=== PATIENT | male | born 1945 | race Caucasian/White ===

== ENCOUNTER → 2017-08-22 11:04 | Outpatient (CLI) | payer MEDICARE, SELFPAY ==
[2017-08-22 11:49] LABS: Hematocrit 41.3 % (40-54); Hemoglobin 12.9 g/dl (13.0-16.5); Mean Corp Hgb Conc 31.2 g/gl (32-36); Mean Corpuscular Hgb 26.4 pg (27.0-32.0); Mean Corpuscular Volume 84.5 fL (80-94); Mean Platelet Vol. 10.5 fl (6.2-12.0); Platelet Count 178 K/mm3 (150-450); RBC Distribution Width CV 16.5 % (11.6-14.6); RBC Distribution Width SD 50.8 fl (35.1-43.9); Red Blood Count 4.89 M/mm3 (4.6-6.2); White Blood Count 4.7 K/mm3 (4.4-11.0)
[2017-08-22 12:02] LABS: Ferritin 35 ng/mL (26-388); Iron 54 ug/dL (65-175); Thyroid Stim Hormone (TSH) 1.75 uIU/mL (0.358-3.74)
[2017-08-22 12:03] LABS: Scan Indicated on CBC? Y/N NO
== END ==
PROVIDERS: Family Provider Internal Medicine; PCP Internal Medicine; Visit Provider Psychiatry & Neurology Neurology
DX: G25.81 Restless legs syndrome (principal); D64.9 Anemia, unspecified; Z79.899 Other long term (current) drug therapy
CPT/HCPCS: 36415; 82728; 83540; 84443; 85027

== ENCOUNTER → 2017-10-01 08:27 | Outpatient (CLI) | payer MEDICARE, SELFPAY ==
--- NOTE | 2017-10-01 09:00 | PET_ITS ---
EXAMINATION: FDG PET CT INDICATIONS: A 72-year-old male with reported history of pulmonary nodularity. COMPARISON EXAMINATION: CT of the chest report dated 10/17/16, 04/19/17, previous FDG PET study dated 11/09/14. INDEX LESION SIZE SUV INTERPRETATION PERSISTENT: Left upper posterolateral hemithorax pulmonary parenchyma, left upper lobe 1.2 compared to 1.5, 11/09/14 Quantitative criteria for viable neoplasm are not fulfilled, no definitive interim quantitative metabolic change NON-INDEX LESION SIZE SUV INTERPRETATION NEW: Bilateral axillary regions 2.0 (max) Quantitative criteria for viable neoplasm are not fulfilled PERSISTENT: Mediastinum, bilateral thoracic perihilum 2.2 (max) compared to 2.4, 11/09/14 Quantitative criteria for viable neoplasm are not fulfilled, no definitive interim quantitative metabolic change TECHNIQUE: Following the intravenous administration of 13.47 mCi of F-18 deoxyglucose via the right hand, multiplanar image acquisitions of the neck, chest, abdomen and pelvis to level of mid thigh, obtained at one hour post radiopharmaceutical administration contemporaneously interpreted with the current CT of the neck, chest, abdomen and pelvis to level of mid thigh, dated 10/01/[address] of the chest report dated 10/17/16, 04/19/17, previous FDG PET study dated 11/09/14 reveal: SERUM GLUCOSE LEVEL: 84 mg/dl. HEIGHT: 66 inches. WEIGHT: 145 lbs. FINDINGS: 1. Mild enhanced glucose metabolism is redefined in the left upper posterolateral hemithorax pulmonary parenchyma, left upper lobe generating a current calculated maximum standard uptake value of 1.2 compared to 1.5 defined on the FDG PET study dated 11/09/14. The maximal axial diameter of the corresponding noncalcified parenchymal density on review of CT of the thorax dated 10/01/17 is 10.9 mm. 2. There is mild increased glucose concentration newly visualized in the bilateral axillary regions generating a calculated maximum standard uptake value of 2.0. Uptake corresponds to soft tissue densities on review of CT of the thorax dated 10/01/17, the majority of which express fatty hilus formation. 3. An increase in glucose metabolism is defined in the region of the aorticopulmonary window, subcarinal mediastinum and bilateral thoracic perihilar regions generating a current calculated maximum standard uptake value of 2.2 compared to 2.4 defined on the FDG PET study dated 11/09/14. 4. Normal physiologic distribution of the radiopharmaceutical is apparent in the hepatic (2.6/2.4) and splenic parenchyma, both renal units, bladder and visualized intestinal tract. There is uniform distribution of the radiopharmaceutical concentration compared on the cerebellar hemispheres and cerebral cortex. Diffuse intestinal tract activity is noted throughout all four quadrants of the abdominal-pelvic retroperitoneum, mesentery consistent with normal physiologic distribution of the radiopharmaceutical. Prominent glucose metabolism is defined in the descending thoracic aorta. Pertinent CT findings are as follows. CHEST: Atherosclerotic calcification is defined in the thoracic aorta without evidence of dilatation, aneurysm formation. Coronary arterial calcification is observed. Multiple axillary soft tissue densities with fatty hilus formation demonstrate mild increased glucose metabolism as previously described. Emphysematous change is noted in the bilateral upper-mid lung zones. Additional noncalcified parenchymal densities noted in the bilateral hemithorax demonstrate no evidence of quantitatively significant increased glucose metabolism. ABDOMEN AND PELVIS: There appears to be evidence of cholelithiasis. Exophytic and cortical cyst formations are defined in the bilateral kidneys. Calcified granuloma formation is noted within the splenic parenchyma. Atherosclerotic calcification is defined in the abdominal aorta without evidence of dilatation, aneurysm formation. Pelvic arterial calcification is observed. A fat-containing right inguinal hernia is noted. Right-left inguinal soft tissue densities are non-glucose avid. Minimal calcification is demonstrated within the prostate gland. SKELETAL: Degenerative changes defined in the cervical, thoracic and lumbar spine demonstrate no evidence for glucose hypermetabolism. PET/PET/CT Tumor Base -Thigh Init IMPRESSION: 1. NEGATIVE EXAMINATION. There is no definitive quantitative scintigraphic evidence of viable neoplasm. 2. Increased glucose concentration redefined in the left upper posterolateral hemithorax pulmonary parenchyma does not fulfill quantitative criteria for viable neoplasm. (Lilly et al, Annals of Internal Medicine, 138:724, 2003). 3. Metabolic and/or anatomic stability may be ensured in the left hemithorax pulmonary parenchymal abnormality with repeat FDG PET study and/or CT of the thorax in 6-9 months. (Xiu, Journal of Nuclear Medicine 45:88, P2004. Valerio, Seminars in Thoracic and Cardiovascular Surgery 14:292, 2002). 4. Facilitated glucose concentration redemonstrated in the mediastinum and bilateral thoracic perihilum does not fulfill quantitative criteria for viable neoplasm. (Brian et al, Journal of Clinical Oncology 16:2142, 1998). 5. The increase in glucose concentration observed in the left and right axilla corresponding to soft tissue with fatty hilus formation does not fulfill quantitative criteria for malignant transformation. 6. Prominent glucose concentration visualized in the oral cavity in proximity to dental hardware placement is consistent with a component of metallic reconstruction artifact. 7. Enhanced radiopharmaceutical concentration noted within the descending thoracic aorta is commensurate with activated leukocytes associated with atherosclerotic plaque formation. (Nela et al, Clinical Nuclear Medicine 29:93, 2003). 8. Overall, compared to the prior FDG PET study dated 11/09/14, there current absence of defined viable neoplastic disease. Electronic Signature Zacarias Wagner D.O. Electronically Signed: Zcaarias Wagner DO at 17:13 EDT Tel , Service support ,
== END ==
PROVIDERS: Family Provider Internal Medicine; PCP Internal Medicine; Visit Provider Internal Medicine Pulmonary Disease
DX: R91.1 Solitary pulmonary nodule (principal)
CPT/HCPCS: 78815; A9552; A4216

== ENCOUNTER → 2017-10-05 09:11 | Outpatient (CLI) | payer MEDICARE, SELFPAY ==
[2017-10-05 09:39] LABS: Absolute Lymphocyte Count 1.29 X10^3/ul (0.83-4.51); Absolute Neutrophil Count 2.7 X10^3/uL (2.0-7.7); Basophil# 0.05 X10^3/uL; Basophil% 1.1 % (0-1); Eosinophil# 0.18 X10^3/uL; Eosinophils% 3.9 % (0-5); Hematocrit 39.2 % (40-54); Hemoglobin 12.5 g/dl (13.0-16.5); Lymphocyte # 1.29 X10^3/ul (4.0); Lymphocyte % 27.8 % (19-41); Mean Corp Hgb Conc 31.9 g/gl (32-36); Mean Corpuscular Volume 84.7 fL (80-94); Mean Platelet Vol. 9.8 fl (6.2-12.0); Monocyte# 0.47 X10^3/uL; Monocyte% 10.1 % (0-10); Neutrophil # 2.65 X10^3/uL (2.7-7.7); Neutrophil % 57.1 % (47-70); Platelet Count 186 K/mm3 (150-450); RBC Distribution Width CV 16.8 % (11.6-14.6); RBC Distribution Width SD 51.8 fl (35.1-43.9); Red Blood Count 4.63 M/mm3 (4.6-6.2); White Blood Count 4.6 K/mm3 (4.4-11.0)
[2017-10-05 09:40] LABS: POSITIVE COUNT NO; POSITIVE DIFFERENTIAL NO; POSITIVE MORPHOLOGY NO
[2017-10-05 10:07] LABS: ALB/GLOB Ratio 0.8 RATIO (0.9-2.4); AST(SGOT) 23 U/L (15-37); Alanine Aminotransfer ALT/SGPT 29 U/L (16-61); Albumin, Serum 3.2 g/dL (3.2-5.0); Alkaline Phosphatase 95 U/L (45-117); Anion Gap 4 (5-15); BUN 16 mg/dL (7-18); BUN/Creat Ratio 27.4 RATIO (10-20); Calcium,Total 8.5 mg/dL (8.5-10.1); Chloride 107 mmol/L (98-107); Creatinine, Serum 0.58 mg/dL (0.70-1.30); EST Glomerular Filtration Rate 144 mL/min (>60); Est Glom Filt Rate - Afr Amer 175 mL/min (>60); Globulin 3.8 g/dL (2.2-4.2); Glucose 97 mg/dL (74-106); Sodium Level 140 mmol/L (136-145)
== END ==
PROVIDERS: Family Provider Internal Medicine; PCP Internal Medicine; Visit Provider Internal Medicine Rheumatology
DX: M05.79 Rheumatoid arthritis with rheumatoid factor of multiple sites without organ or systems involvement (principal); M17.0 Bilateral primary osteoarthritis of knee; E11.9 Type 2 diabetes mellitus without complications; J44.9 Chronic obstructive pulmonary disease, unspecified; E78.5 Hyperlipidemia, unspecified; I42.9 Cardiomyopathy, unspecified; G62.89 Other specified polyneuropathies; Z79.899 Other long term (current) drug therapy
CPT/HCPCS: 36415; 80053; 85025

== ENCOUNTER → 2017-10-08 12:24 | Outpatient (CLI) | payer MEDICARE, SELFPAY ==
[2017-10-08 14:21] LABS: Absolute Neutrophil Count 1.9 X10^3/uL (2.0-7.7); Basophil# 0.05 X10^3/uL; Basophil% 1.2 % (0-1); Eosinophil# 0.23 X10^3/uL; Eosinophils% 5.5 % (0-5); Hematocrit 40.3 % (40-54); Lymphocyte % 35.6 % (19-41); Mean Corp Hgb Conc 32.3 g/gl (32-36); Mean Corpuscular Hgb 27.4 pg (27.0-32.0); Mean Platelet Vol. 9.6 fl (6.2-12.0); Monocyte# 0.49 X10^3/uL; Monocyte% 11.6 % (0-10); Neutrophil # 1.94 X10^3/uL (2.7-7.7); Neutrophil % 46.1 % (47-70); Platelet Count 190 K/mm3 (150-450); RBC Distribution Width CV 16.9 % (11.6-14.6); RBC Distribution Width SD 51.6 fl (35.1-43.9); Red Blood Count 4.74 M/mm3 (4.6-6.2); White Blood Count 4.2 K/mm3 (4.4-11.0)
[2017-10-08 14:29] LABS: POSITIVE COUNT NO; POSITIVE DIFFERENTIAL NO; POSITIVE MORPHOLOGY NO
[2017-10-08 14:37] LABS: Vitamin B12 489 pg/mL (211-911)
[2017-10-08 14:50] LABS: ALB/GLOB Ratio 0.8 RATIO (0.9-2.4); AST(SGOT) 20 U/L (15-37); Alanine Aminotransfer ALT/SGPT 23 U/L (16-61); Alkaline Phosphatase 91 U/L (45-117); Anion Gap 6 (5-15); BUN 14 mg/dL (7-18); BUN/Creat Ratio 22.4 RATIO (10-20); Calcium,Total 8.4 mg/dL (8.5-10.1); Chloride 109 mmol/L (98-107); Cholesterol 138 mg/dL (200); Creatinine, Serum 0.63 mg/dL (0.70-1.30); EST Glomerular Filtration Rate 134 mL/min (>60); Est Glom Filt Rate - Afr Amer 162 mL/min (>60); Ferritin 36 ng/mL (26-388); Globulin 3.7 g/dL (2.2-4.2); Glucose 82 mg/dL (74-106); High Density Lipoprotein 42 mg/dL; Iron 135 ug/dL (65-175); PSA,Total - Annual Screen 0.67 ng/mL (0.00-4.00); Potassium 4.1 mmol/L (3.5-5.1); Protein, Total 6.7 g/dL (6.4-8.2); Sodium Level 142 mmol/L (136-145); Triglycerides 76 mg/dL; Very Low Density Lipoprotein 15 mg/dL (5-40)
[2017-10-09 16:11] LABS: PROEL- A/G Ratio 1.1 (0.7-1.7); PROEL- Albumin 3.2 g/dL (2.9-4.4); PROEL- Alpha-1 Globulin 0.2 g/dL (0.0-0.4); PROEL- Alpha-2 Globulin 0.8 g/dL (0.4-1.0); PROEL- Beta Globulin 0.8 g/dL (0.7-1.3); PROEL- Globulin, Total 2.9 g/dL (2.2-3.9); PROEL- TOTAL PROTEIN 6.1 g/dL (6.0-8.5)
[2017-10-11 14:07] LABS: PROELU- Albumin, Urine 37.8 % (.); PROELU- Alpha-1-Globulin,Ur 5.7 % (.); PROELU- Alpha-2-Globulin,Ur 18.9 % (.); PROELU- Beta Globulin, Ur 27.5 % (.)
== END ==
PROVIDERS: Family Provider Internal Medicine; PCP Internal Medicine; Visit Provider Internal Medicine
DX: E78.4 Other hyperlipidemia (principal); D64.9 Anemia, unspecified; R79.89 Other specified abnormal findings of blood chemistry; Z12.5 Encounter for screening for malignant neoplasm of prostate
CPT/HCPCS: 36415; 80053; 80061; 82607; 82728; 83540; 84153; 84165; 84166; 85025; 86141; G0103

== ENCOUNTER → 2017-10-12 11:41 | Outpatient (CLI) | payer MEDICARE, SELFPAY ==
[2017-10-15 20:08] LABS: QNTFERON TB Ag Minus Nil Value < 0 IU/mL (.); QNTFERON TB Ag Value 0.03 IU/mL (.); QNTFERON TB Mitogen Value > 10.00 IU/mL (.); QNTFERON TB Nil Value 0.05 IU/mL (.)
[2017-10-16 09:36] LABS: QNTIFERON TB Gold Negative (Negative)
== END ==
PROVIDERS: Family Provider Internal Medicine; PCP Internal Medicine; Visit Provider Internal Medicine Rheumatology
DX: M05.79 Rheumatoid arthritis with rheumatoid factor of multiple sites without organ or systems involvement (principal); M17.0 Bilateral primary osteoarthritis of knee; E11.9 Type 2 diabetes mellitus without complications; J44.9 Chronic obstructive pulmonary disease, unspecified; E78.5 Hyperlipidemia, unspecified; I42.9 Cardiomyopathy, unspecified; G62.89 Other specified polyneuropathies; Z79.899 Other long term (current) drug therapy
CPT/HCPCS: 36415; 86480

== ENCOUNTER → 2017-11-21 09:50 | Outpatient (CLI) | payer MEDICARE, SELFPAY ==
--- NOTE | 2017-11-21 09:56 | ECHOD_ITS ---
Reason For Study: CONGENITAL HEART DISEASE Procedure This was a 2D Doppler, Color Flow transthoracic echocardiogram. The exam was of fair technical quality due to diminished acoustic windows. The study was technically difficult. Exam performed in department. Left Ventricle Normal LV size. Left ventricular systolic function is normal. The estimated ejection fraction is 55 %. Normal diastology for age. No regional wall motion abnormalities noted. Right Ventricle Normal RV size. Normal systolic function. Atria Normal left atrium. Normal right atrium. No doppler evidence for ASD. Mitral Valve There is moderate mitral annular calcification. Extension of the mitral annular calcification onto the posterior mitral valve leaflet. Mild (1+) mitral valve insufficiency. Tricuspid Valve Normal tricuspid valve. Mild tricuspid valve insufficiency. Right ventricular systolic pressure estimated to be 28 mmHg. Aortic Valve Trisinus/trileaflet aortic valve. Mild diffuse aortic valve thickening. Mild focal aortic valve calcification. Mild (1+) aortic valve insufficiency. Pulmonic Valve The pulmonic valve is not well visualized. Trivial pulmonic valve insufficiency. Great Vessels Normal sized aortic root. Pericardium/Pleural No pericardial effusion. MMode/2D Measurements & Calculations LVIDd: 4.3 cm IVSd: 1.1 cm Ao root diam: 3.4 cm LVIDs: 3.1 cm LVPWd: 1.1 cm FS: 28.3 % LAV(MOD-sp2): 21.6 ml LVAd ap4: 27.0 cm2 SV(MOD-sp4): 39.9 ml EDV(MOD-sp4): 76.9 ml EDV(sp4-el): 81.1 ml LVAs ap4: 17.2 cm2 ESV(MOD-sp4): 37.1 ml ESV(sp4-el): 38.1 ml EF(MOD-sp4): 51.8 % EF(sp4-el): 53.0 % SV(sp4-el): 43.0 ml Time Measurements MV dec time: 0.22 sec Doppler Measurements & Calculations MV E max bright: 52.4 cm/sec Lat Peak E' Bright: 10.1 cm/sec Med Peak E' Bright: 8.7 cm/sec MV A max bright: 89.1 cm/sec E/E' lat: 5.2 E/E' med: 6.0 MV E/A: 0.59 Ao V2 max: 103.9 cm/sec LV V1 max: 76.8 cm/sec PA V2 max: 119.6 cm/sec Ao max P.3 mmHg LV V1 max P.4 mmHg TR max bright: 248.1 cm/sec TR max P.6 mmHg Interpretation Summary The study was technically difficult. Left ventricular systolic function is normal. The estimated ejection fraction is 55 %. There is moderate mitral annular calcification. Extension of the mitral annular calcification onto the posterior mitral valve leaflet. Mild (1+) mitral valve insufficiency. Mild tricuspid valve insufficiency. Mild diffuse aortic valve thickening. Mild focal aortic valve calcification. Trivial pulmonic valve insufficiency. Right ventricular systolic pressure estimated to be 28 mmHg. Ordering Physician: Cielo Cole Referring Physician: MANUEL SAMUEL Performed By: Jo Ann Patterson RDCS
== END ==
PROVIDERS: Family Provider Internal Medicine; PCP Internal Medicine; Visit Provider Physician Assistant Medical
DX: I34.0 Nonrheumatic mitral (valve) insufficiency (principal)
CPT/HCPCS: 93306

== ENCOUNTER → 2017-12-21 11:29 | Outpatient (CLI) | payer MEDICARE, SELFPAY ==
[2017-12-21 12:43] LABS: Absolute Lymphocyte Count 1.59 X10^3/ul (0.83-4.51); Absolute Neutrophil Count 2.1 X10^3/uL (2.0-7.7); Basophil# 0.02 X10^3/uL; Basophil% 0.5 % (0-1); Eosinophil# 0.13 X10^3/uL; Eosinophils% 3.2 % (0-5); Hematocrit 39.5 % (40-54); Hemoglobin 12.5 g/dl (13.0-16.5); Lymphocyte # 1.59 X10^3/ul (4.0); Lymphocyte % 38.7 % (19-41); Mean Corp Hgb Conc 31.6 g/gl (32-36); Mean Corpuscular Hgb 27.4 pg (27.0-32.0); Mean Corpuscular Volume 86.6 fL (80-94); Mean Platelet Vol. 9.3 fl (6.2-12.0); Monocyte# 0.28 X10^3/uL; Monocyte% 6.8 % (0-10); Neutrophil # 2.09 X10^3/uL (2.7-7.7); Neutrophil % 50.8 % (47-70); Platelet Count 173 K/mm3 (150-450); RBC Distribution Width CV 14.9 % (11.6-14.6); RBC Distribution Width SD 46.5 fl (35.1-43.9); Red Blood Count 4.56 M/mm3 (4.6-6.2); White Blood Count 4.1 K/mm3 (4.4-11.0)
[2017-12-21 12:45] LABS: POSITIVE COUNT NO; POSITIVE DIFFERENTIAL NO; POSITIVE MORPHOLOGY NO
[2017-12-21 13:04] LABS: ALB/GLOB Ratio 0.8 RATIO (0.9-2.4); AST(SGOT) 22 U/L (15-37); Alanine Aminotransfer ALT/SGPT 22 U/L (16-61); Albumin, Serum 3.1 g/dL (3.2-5.0); Alkaline Phosphatase 85 U/L (45-117); Anion Gap 7 (5-15); BUN 16 mg/dL (7-18); BUN/Creat Ratio 21.5 RATIO (10-20); Calcium,Total 8.5 mg/dL (8.5-10.1); Chloride 108 mmol/L (98-107); Creatinine, Serum 0.74 mg/dL (0.70-1.30); EST Glomerular Filtration Rate 109 mL/min (>60); Est Glom Filt Rate - Afr Amer 132 mL/min (>60); Globulin 3.9 g/dL (2.2-4.2); Glucose 78 mg/dL (74-106); Sodium Level 141 mmol/L (136-145)
== END ==
PROVIDERS: Family Provider Internal Medicine; PCP Internal Medicine; Visit Provider Internal Medicine Rheumatology
DX: M05.79 Rheumatoid arthritis with rheumatoid factor of multiple sites without organ or systems involvement (principal); Z79.899 Other long term (current) drug therapy; M17.0 Bilateral primary osteoarthritis of knee; E11.9 Type 2 diabetes mellitus without complications; J44.9 Chronic obstructive pulmonary disease, unspecified; E78.5 Hyperlipidemia, unspecified; I42.9 Cardiomyopathy, unspecified; G62.89 Other specified polyneuropathies
CPT/HCPCS: 36415; 80053; 85025

== ENCOUNTER → 2018-01-11 10:06 | Outpatient (CLI) | payer MEDICARE, SELFPAY ==
[2018-01-11 11:07] LABS: Absolute Lymphocyte Count 1.62 X10^3/ul (0.83-4.51); Absolute Neutrophil Count 2.8 X10^3/uL (2.0-7.7); Basophil# 0.05 X10^3/uL; Eosinophil# 0.21 X10^3/uL; Eosinophils% 4.1 % (0-5); Hemoglobin 13.7 g/dl (13.0-16.5); Lymphocyte # 1.62 X10^3/ul (4.0); Lymphocyte % 31.3 % (19-41); Mean Corp Hgb Conc 31.9 g/gl (32-36); Mean Corpuscular Volume 87.9 fL (80-94); Mean Platelet Vol. 10.5 fl (6.2-12.0); Monocyte# 0.53 X10^3/uL; Monocyte% 10.3 % (0-10); Neutrophil # 2.76 X10^3/uL (2.7-7.7); Neutrophil % 53.3 % (47-70); Platelet Count 179 K/mm3 (150-450); RBC Distribution Width CV 15.2 % (11.6-14.6); RBC Distribution Width SD 48.4 fl (35.1-43.9); Red Blood Count 4.89 M/mm3 (4.6-6.2); White Blood Count 5.2 K/mm3 (4.4-11.0)
[2018-01-11 11:10] LABS: POSITIVE COUNT NO; POSITIVE DIFFERENTIAL NO; POSITIVE MORPHOLOGY NO
[2018-01-11 11:47] LABS: ALB/GLOB Ratio 0.8 RATIO (0.9-2.4); AST(SGOT) 15 U/L (15-37); Alanine Aminotransfer ALT/SGPT 20 U/L (16-61); Albumin, Serum 3.2 g/dL (3.2-5.0); Alkaline Phosphatase 97 U/L (45-117); Anion Gap 6 (5-15); BUN 15 mg/dL (7-18); BUN/Creat Ratio 20.6 RATIO (10-20); Calcium,Total 8.6 mg/dL (8.5-10.1); Chloride 109 mmol/L (98-107); Cholesterol 144 mg/dL (200); Creatinine, Serum 0.73 mg/dL (0.70-1.30); EST Glomerular Filtration Rate 112 mL/min (>60); Est Glom Filt Rate - Afr Amer 136 mL/min (>60); Globulin 4.1 g/dL (2.2-4.2); Glucose 86 mg/dL (74-106); High Density Lipoprotein 48 mg/dL; Potassium 4.2 mmol/L (3.5-5.1); Protein, Total 7.3 g/dL (6.4-8.2); Sodium Level 142 mmol/L (136-145); Triglycerides 56 mg/dL; Very Low Density Lipoprotein 11 mg/dL (5-40)
[2018-01-11 11:49] LABS: Hemoglobin A1c 5.3 % (4.2-6.3)
[2018-01-11 11:51] LABS: Vitamin D,25 Hydroxy 27.4 ng/mL (29.95-100.01)
[2018-01-11 14:03] LABS: Microalbumin:Creatinine Ratio 8.1 mg/g CRE (<30 mg/g CRE)
== END ==
PROVIDERS: Family Provider Internal Medicine; PCP Internal Medicine; Visit Provider Internal Medicine
DX: E78.4 Other hyperlipidemia (principal); E11.9 Type 2 diabetes mellitus without complications; M85.80 Other specified disorders of bone density and structure, unspecified site
CPT/HCPCS: 80053; 80061; 82043; 82306; 82570; 83036; 85025

== ENCOUNTER → 2018-03-22 11:26 | Outpatient (CLI) | payer MEDICARE, SELFPAY ==
[2018-03-22 11:47] LABS: Absolute Lymphocyte Count 1.23 X10^3/ul (0.83-4.51); Absolute Neutrophil Count 2.9 X10^3/uL (2.0-7.7); Basophil# 0.03 X10^3/uL; Basophil% 0.6 % (0-1); Eosinophil# 0.08 X10^3/uL; Eosinophils% 1.7 % (0-5); Hematocrit 39.2 % (40-54); Hemoglobin 12.5 g/dl (13.0-16.5); Lymphocyte # 1.23 X10^3/ul (4.0); Lymphocyte % 26.4 % (19-41); Mean Corp Hgb Conc 31.9 g/gl (32-36); Mean Corpuscular Hgb 27.5 pg (27.0-32.0); Mean Corpuscular Volume 86.3 fL (80-94); Mean Platelet Vol. 9.5 fl (6.2-12.0); Monocyte# 0.45 X10^3/uL; Monocyte% 9.7 % (0-10); Neutrophil # 2.87 X10^3/uL (2.7-7.7); Neutrophil % 61.6 % (47-70); Platelet Count 145 K/mm3 (150-450); RBC Distribution Width CV 15.5 % (11.6-14.6); RBC Distribution Width SD 48.9 fl (35.1-43.9); Red Blood Count 4.54 M/mm3 (4.6-6.2); White Blood Count 4.7 K/mm3 (4.4-11.0)
[2018-03-22 11:48] LABS: POSITIVE COUNT NO; POSITIVE DIFFERENTIAL NO; POSITIVE MORPHOLOGY NO
[2018-03-22 12:33] LABS: ALB/GLOB Ratio 0.8 RATIO (0.9-2.4); AST(SGOT) 15 U/L (15-37); Alanine Aminotransfer ALT/SGPT 17 U/L (16-61); Albumin, Serum 3.1 g/dL (3.2-5.0); Alkaline Phosphatase 91 U/L (45-117); Anion Gap 6 (5-15); BUN 17 mg/dL (7-18); BUN/Creat Ratio 22.1 RATIO (10-20); Calcium,Total 8.4 mg/dL (8.5-10.1); Chloride 109 mmol/L (98-107); Creatinine, Serum 0.77 mg/dL (0.70-1.30); EST Glomerular Filtration Rate 105 mL/min (>60); Est Glom Filt Rate - Afr Amer 127 mL/min (>60); Globulin 3.9 g/dL (2.2-4.2); Glucose 84 mg/dL (74-106); Potassium 3.9 mmol/L (3.5-5.1); Sodium Level 141 mmol/L (136-145)
== END ==
PROVIDERS: Family Provider Internal Medicine; PCP Internal Medicine; Referring Provider Internal Medicine Rheumatology; Visit Provider Internal Medicine Rheumatology
DX: M05.79 Rheumatoid arthritis with rheumatoid factor of multiple sites without organ or systems involvement (principal); Z79.899 Other long term (current) drug therapy; M17.0 Bilateral primary osteoarthritis of knee; E11.9 Type 2 diabetes mellitus without complications; J44.9 Chronic obstructive pulmonary disease, unspecified; E78.5 Hyperlipidemia, unspecified; I42.9 Cardiomyopathy, unspecified; G62.89 Other specified polyneuropathies
CPT/HCPCS: 36415; 80053; 85025

== ENCOUNTER → 2018-04-18 10:07 | Outpatient (CLI) | payer MEDICARE, SELFPAY ==
[2018-04-18 10:44] LABS: Absolute Lymphocyte Count 1.28 X10^3/ul (0.83-4.51); Basophil# 0.03 X10^3/uL; Basophil% 0.8 % (0-1); Eosinophil# 0.09 X10^3/uL; Eosinophils% 2.4 % (0-5); Hematocrit 40.1 % (40-54); Lymphocyte # 1.28 X10^3/ul (4.0); Lymphocyte % 34.8 % (19-41); Mean Corp Hgb Conc 32.4 g/gl (32-36); Mean Corpuscular Hgb 27.8 pg (27.0-32.0); Mean Corpuscular Volume 85.7 fL (80-94); Monocyte# 0.32 X10^3/uL; Monocyte% 8.7 % (0-10); Neutrophil # 1.96 X10^3/uL (2.7-7.7); Neutrophil % 53.3 % (47-70); POSITIVE COUNT NO; POSITIVE DIFFERENTIAL NO; POSITIVE MORPHOLOGY NO; Platelet Count 177 K/mm3 (150-450); RBC Distribution Width CV 15.2 % (11.6-14.6); RBC Distribution Width SD 47.2 fl (35.1-43.9); Red Blood Count 4.68 M/mm3 (4.6-6.2); White Blood Count 3.7 K/mm3 (4.4-11.0)
[2018-04-18 11:04] LABS: Hemoglobin A1c 5.5 % (4.2-6.3)
[2018-04-18 11:09] LABS: ALB/GLOB Ratio 0.8 RATIO (0.9-2.4); AST(SGOT) 15 U/L (15-37); Alanine Aminotransfer ALT/SGPT 18 U/L (16-61); Albumin, Serum 3.1 g/dL (3.2-5.0); Alkaline Phosphatase 93 U/L (45-117); Anion Gap 7 (5-15); BUN 12 mg/dL (7-18); BUN/Creat Ratio 16.5 RATIO (10-20); Calcium,Total 8.4 mg/dL (8.5-10.1); Chloride 107 mmol/L (98-107); Cholesterol 140 mg/dL (200); Creatinine, Serum 0.73 mg/dL (0.70-1.30); EST Glomerular Filtration Rate 112 mL/min (>60); Est Glom Filt Rate - Afr Amer 136 mL/min (>60); Globulin 3.9 g/dL (2.2-4.2); Glucose 85 mg/dL (74-106); High Density Lipoprotein 45 mg/dL; Potassium 3.8 mmol/L (3.5-5.1); Sodium Level 141 mmol/L (136-145); Triglycerides 55 mg/dL; Very Low Density Lipoprotein 11 mg/dL (5-40)
== END ==
PROVIDERS: Family Provider Internal Medicine; PCP Internal Medicine; Referring Provider Internal Medicine; Visit Provider Internal Medicine
DX: E11.9 Type 2 diabetes mellitus without complications (principal); E78.49 Other hyperlipidemia; K21.9 Gastro-esophageal reflux disease without esophagitis
CPT/HCPCS: 36415; 80053; 80061; 83036; 85025

== ENCOUNTER → 2018-06-28 12:25 | Outpatient (CLI) | payer MEDICARE, SELFPAY ==
[2018-06-28 13:19] LABS: Absolute Lymphocyte Count 1.63 X10^3/ul (0.83-4.51); Absolute Neutrophil Count 2.2 X10^3/uL (2.0-7.7); Basophil# 0.02 X10^3/uL; Basophil% 0.5 % (0-1); Eosinophil# 0.11 X10^3/uL; Eosinophils% 2.5 % (0-5); Hematocrit 40.2 % (40-54); Hemoglobin 12.7 g/dl (13.0-16.5); Lymphocyte # 1.63 X10^3/ul (4.0); Lymphocyte % 36.9 % (19-41); Mean Corp Hgb Conc 31.6 g/gl (32-36); Mean Corpuscular Hgb 27.9 pg (27.0-32.0); Mean Corpuscular Volume 88.4 fL (80-94); Mean Platelet Vol. 9.8 fl (6.2-12.0); Monocyte# 0.43 X10^3/uL; Monocyte% 9.7 % (0-10); Neutrophil # 2.23 X10^3/uL (2.7-7.7); Neutrophil % 50.4 % (47-70); Platelet Count 153 K/mm3 (150-450); RBC Distribution Width CV 16.3 % (11.6-14.6); RBC Distribution Width SD 51.8 fl (35.1-43.9); Red Blood Count 4.55 M/mm3 (4.6-6.2); White Blood Count 4.4 K/mm3 (4.4-11.0)
[2018-06-28 13:25] LABS: POSITIVE COUNT NO; POSITIVE DIFFERENTIAL NO; POSITIVE MORPHOLOGY NO
[2018-06-28 13:41] LABS: Albumin, Serum 3.5 g/dL (3.2-5.0); BUN 15 mg/dL (7-18); BUN/Creat Ratio 20.1 RATIO (10-20); Creatinine, Serum 0.75 mg/dL (0.70-1.30); EST Glomerular Filtration Rate 109 mL/min (>60); Est Glom Filt Rate - Afr Amer 132 mL/min (>60); Glucose 91 mg/dL (74-106); Protein, Total 6.9 g/dL (6.4-8.2)
[2018-06-28 13:42] LABS: AST(SGOT) 21 U/L (15-37); Alanine Aminotransfer ALT/SGPT 28 U/L (16-61); Alkaline Phosphatase 91 U/L (45-117); Anion Gap 9 (5-15); Calcium,Total 8.5 mg/dL (8.5-10.1); Chloride 106 mmol/L (98-107); Globulin 3.4 g/dL (2.2-4.2); Potassium 4.1 mmol/L (3.5-5.1); Sodium Level 144 mmol/L (136-145)
== END ==
PROVIDERS: Family Provider Internal Medicine; PCP Internal Medicine; Referring Provider Internal Medicine Rheumatology; Visit Provider Internal Medicine Rheumatology
DX: M17.0 Bilateral primary osteoarthritis of knee (principal); M05.79 Rheumatoid arthritis with rheumatoid factor of multiple sites without organ or systems involvement; E11.9 Type 2 diabetes mellitus without complications; J44.9 Chronic obstructive pulmonary disease, unspecified; E78.5 Hyperlipidemia, unspecified; I42.9 Cardiomyopathy, unspecified; G62.89 Other specified polyneuropathies; Z79.899 Other long term (current) drug therapy
CPT/HCPCS: 36415; 80053; 85025

== ENCOUNTER → 2018-08-29 13:02 | Outpatient (CLI) | payer MEDICARE, SELFPAY ==
[2018-08-29 13:12] VITALS: BP 136/72; PULSE 80; RESP 16; TEMP 36.7; O2SAT 100; BMI 25.8
== END ==
PROVIDERS: Family Provider Internal Medicine; PCP Internal Medicine; Referring Provider Internal Medicine Rheumatology; Visit Provider Internal Medicine Rheumatology
DX: M06.9 Rheumatoid arthritis, unspecified (principal)
CPT/HCPCS: 96365; J7050; A4216; J0129

== ENCOUNTER → 2018-09-25 10:47 | Outpatient (CLI) | payer MEDICARE, SELFPAY ==
[2018-08-29 13:12] VITALS: BMI 25.8
--- NOTE | 2018-09-25 10:50 | CDU_ITS ---
Reason For Study: Stenosis Rt. Velocities/BP Lt. Velocities/BP Prox CCA 73.4/20 cm/sec. Prox CCA 83.9/20 cm/sec. Mid CCA 86.5/21.3 cm/sec. Mid CCA 76.5/21.2 cm/sec. Dist CCA 61.7/18.6 cm/sec. Dist CCA 70.4/18.8 cm/sec. Prox ICA 77.3/23.9 cm/sec. Prox ICA 67.9/20 cm/sec. Mid ICA 70.8/27.8 cm/sec. Mid ICA 91.3/36 cm/sec. Dist ICA 86.5/31.7 cm/sec. Dist ICA 99.8/45.8 cm/sec. Rt. ICA/CCA = 1.0. Lt. ICA/CCA = 1.3. Prox ECA 60.4/8.2 cm/sec. Prox ECA 80.2/12.6 cm/sec. Rt. Vert. 51.3/16 cm/sec. Lt. Vert. 59.3/16.3 cm/sec. Right Extracranial There is homogeneous, smooth atherosclerotic plaque noted in the right common carotid artery. There is heterogeneous, irregular atherosclerotic plaque noted in the right internal carotid artery. There is intimal thickening but no significant atherosclerotic plaque noted in the right external carotid artery. Antegrade flow is noted in the right vertebral artery. Left Extracranial There is intimal thickening but no significant atherosclerotic plaque noted in the left common carotid artery. There is homogeneous, smooth atherosclerotic plaque noted in the left internal carotid artery. The left internal carotid artery is very tortuous. There is intimal thickening but no significant atherosclerotic plaque noted in the left external carotid artery. Antegrade flow is noted in the left vertebral artery. Procedure Carotid Duplex 52680. The exam was diagnostic. Exam performed in department. Interpretation Summary Mild (<50%) stenosis right extracranial internal carotid. Mild (<50%) stenosis left extracranial internal carotid. Flow within the vertebral arteries is antegrade bilaterally. Ordering Physician: Vanessa Christina Performed By: Keenan Lincoln RVT
== END ==
PROVIDERS: Family Provider Internal Medicine; PCP Internal Medicine; Referring Provider Internal Medicine; Visit Provider Internal Medicine
DX: I65.23 Occlusion and stenosis of bilateral carotid arteries (principal)
CPT/HCPCS: 93880

== ENCOUNTER → 2018-09-26 07:23 | Outpatient (CLI) | payer MEDICARE, SELFPAY ==
[2018-08-29 13:12] VITALS: BMI 25.8
[2018-09-26 08:15] LABS: Absolute Lymphocyte Count 1.65 X10^3/ul (0.83-4.51); Absolute Neutrophil Count 2.2 X10^3/uL (2.0-7.7); Basophil# 0.06 X10^3/uL; Basophil% 1.3 % (0-1); Eosinophil# 0.09 X10^3/uL; Eosinophils% 1.9 % (0-5); Hematocrit 41.7 % (40-54); Hemoglobin 13.5 g/dl (13.0-16.5); Lymphocyte # 1.65 X10^3/ul (4.0); Lymphocyte % 35.7 % (19-41); Mean Corp Hgb Conc 32.4 g/gl (32-36); Mean Corpuscular Volume 89.7 fL (80-94); Mean Platelet Vol. 10.5 fl (6.2-12.0); Monocyte# 0.58 X10^3/uL; Monocyte% 12.6 % (0-10); Neutrophil # 2.24 X10^3/uL (2.7-7.7); Neutrophil % 48.5 % (47-70); POSITIVE COUNT NO; POSITIVE DIFFERENTIAL NO; POSITIVE MORPHOLOGY NO; Platelet Count 160 K/mm3 (150-450); RBC Distribution Width CV 14.7 % (11.6-14.6); RBC Distribution Width SD 47.4 fl (35.1-43.9); Red Blood Count 4.65 M/mm3 (4.6-6.2); White Blood Count 4.6 K/mm3 (4.4-11.0)
[2018-09-26 08:37] LABS: AST(SGOT) 28 U/L (15-37); Alanine Aminotransfer ALT/SGPT 43 U/L (16-61); Albumin, Serum 3.5 g/dL (3.2-5.0); Alkaline Phosphatase 111 U/L (45-117); Anion Gap 8 (5-15); BUN 14 mg/dL (7-18); Calcium,Total 8.6 mg/dL (8.5-10.1); Chloride 106 mmol/L (98-107); Creatinine, Serum 0.74 mg/dL (0.70-1.30); EST Glomerular Filtration Rate 111 mL/min (>60); Est Glom Filt Rate - Afr Amer 134 mL/min (>60); Globulin 3.4 g/dL (2.2-4.2); Glucose 98 mg/dL (74-106); Potassium 4.2 mmol/L (3.5-5.1); Protein, Total 6.9 g/dL (6.4-8.2); Sodium Level 142 mmol/L (136-145)
== END ==
PROVIDERS: Family Provider Internal Medicine; PCP Internal Medicine; Referring Provider Internal Medicine Rheumatology; Visit Provider Internal Medicine Rheumatology
DX: M05.79 Rheumatoid arthritis with rheumatoid factor of multiple sites without organ or systems involvement (principal); M17.0 Bilateral primary osteoarthritis of knee; E11.9 Type 2 diabetes mellitus without complications; J44.9 Chronic obstructive pulmonary disease, unspecified; E78.5 Hyperlipidemia, unspecified; I42.9 Cardiomyopathy, unspecified; G62.89 Other specified polyneuropathies; Z79.899 Other long term (current) drug therapy
CPT/HCPCS: 36415; 80053; 85025

== ENCOUNTER → 2018-11-21 | Outpatient (CLI) | payer MEDICARE, SELFPAY ==
[2018-11-04 13:06] VITALS: BMI 26.6
--- NOTE | 2018-11-21 13:57 | ECHOD_ITS ---
Reason For Study: MURMUR Procedure This was a 2D Doppler, Color Flow transthoracic echocardiogram. The study was technically difficult. Exam performed in department. Left Ventricle Normal LV size. Left ventricular systolic function is normal. The estimated ejection fraction is 60 %. No evidence for diastolic dysfunction. No regional wall motion abnormalities noted. Right Ventricle Normal RV size. Normal systolic function. Atria Normal left atrium. Normal right atrium. No doppler evidence for ASD. Mitral Valve There is moderate mitral annular calcification. Extension of the mitral annular calcification onto the posterior mitral valve leaflet. Mild-Moderate (1-2+) mitral valve insufficiency. Tricuspid Valve Normal tricuspid valve. Mild tricuspid valve insufficiency. Right ventricular systolic pressure estimated to be 23 mmHg. Aortic Valve Trisinus/trileaflet aortic valve. Mild diffuse aortic valve thickening. Mild focal aortic valve calcification. Aortic sclerosis, no stenosis. Mild (1+) aortic valve insufficiency. Pulmonic Valve The pulmonic valve is not well visualized. Trivial pulmonic valve insufficiency. Great Vessels Normal sized aortic root. Pericardium/Pleural No pericardial effusion. MMode/2D Measurements & Calculations LVIDd: 4.6 cm IVSd: 1.2 cm Ao root diam: 3.3 cm LVIDs: 3.0 cm LVPWd: 1.3 cm RVDd: 3.1 cm FS: 33.6 % LAV(MOD-bp): 45.3 ml LA A4 area: 11.7 cm2 LA dimension(2D): 3.3 cm LAV(MOD-bp) Indexed: 24.8 ml/m2 LAV(MOD-sp2): 44.6 ml LAV(MOD-sp4): 30.8 ml RA A4 area: 12.9 cm2 Time Measurements MV dec time: 0.19 sec Doppler Measurements & Calculations MV E max bright: 54.2 cm/sec Lat Peak E' Bright: 5.5 cm/sec Med Peak E' Bright: 8.7 cm/sec MV A max bright: 71.2 cm/sec E/E' lat: 9.9 E/E' med: 6.2 MV E/A: 0.76 Ao V2 max: 83.8 cm/sec AI max bright: 449.0 cm/sec LV V1 max: 67.1 cm/sec Ao max P.8 mmHg AI max P.6 mmHg LV V1 max P.8 mmHg AI dec slope: 306.7 cm/sec2 AI P1/2t: 428.8 msec PA V2 max: 79.5 cm/sec TR max bright: 223.4 cm/sec TR max P.1 mmHg Interpretation Summary The study was technically difficult. Left ventricular systolic function is normal. The estimated ejection fraction is 60 %. There is moderate mitral annular calcification. Extension of the mitral annular calcification onto the posterior mitral valve leaflet. Mild-Moderate (1-2+) mitral valve insufficiency. Mild tricuspid valve insufficiency. Aortic sclerosis, no stenosis. Mild (1+) aortic valve insufficiency. Trivial pulmonic valve insufficiency. Right ventricular systolic pressure estimated to be 23 mmHg. No evidence for diastolic dysfunction. Ordering Physician: Lul Banuelos Referring Physician: Vanessa Christina Performed By: Ellyn Carpio, STEF, RVT
== END | disposition home or self-care (01) ==
PROVIDERS: Family Provider Internal Medicine; PCP Internal Medicine; Referring Provider Internal Medicine Cardiovascular Disease; Visit Provider Internal Medicine Cardiovascular Disease
DX: I34.0 Nonrheumatic mitral (valve) insufficiency (principal); I42.0 Dilated cardiomyopathy; I47.1 Supraventricular tachycardia
CPT/HCPCS: 93306

== ENCOUNTER → 2018-12-04 | Outpatient (CLI) | payer MEDICARE, SELFPAY ==
[2018-11-04 13:06] VITALS: BMI 26.6
[2018-12-04 10:43] LABS: Absolute Lymphocyte Count 1.34 X10^3/ul (0.83-4.51); Absolute Neutrophil Count 4.4 X10^3/uL (2.0-7.7); Basophil# 0.05 X10^3/uL; Basophil% 0.8 % (0-1); Eosinophil# 0.13 X10^3/uL; Hematocrit 44.6 % (40-54); Hemoglobin 14.7 g/dl (13.0-16.5); Lymphocyte # 1.34 X10^3/ul (4.0); Lymphocyte % 20.9 % (19-41); Mean Corpuscular Hgb 29.5 pg (27.0-32.0); Mean Corpuscular Volume 89.6 fL (80-94); Mean Platelet Vol. 10.3 fl (6.2-12.0); Monocyte# 0.47 X10^3/uL; Monocyte% 7.3 % (0-10); Neutrophil % 68.8 % (47-70); POSITIVE COUNT NO; POSITIVE DIFFERENTIAL NO; POSITIVE MORPHOLOGY NO; Platelet Count 202 K/mm3 (150-450); RBC Distribution Width CV 14.6 % (11.6-14.6); RBC Distribution Width SD 47.5 fl (35.1-43.9); Red Blood Count 4.98 M/mm3 (4.6-6.2); White Blood Count 6.4 K/mm3 (4.4-11.0)
[2018-12-04 10:56] LABS: Hemoglobin A1c 6.1 % (4.2-6.3)
[2018-12-04 11:09] LABS: AST(SGOT) 25 U/L (15-37); Alanine Aminotransfer ALT/SGPT 35 U/L (16-61); Albumin, Serum 3.7 g/dL (3.2-5.0); Alkaline Phosphatase 97 U/L (45-117); Anion Gap 0 (5-15); BUN 15 mg/dL (7-18); BUN/Creat Ratio 21.1 RATIO (10-20); Calcium,Total 9.1 mg/dL (8.5-10.1); Chloride 112 mmol/L (98-107); Cholesterol 147 mg/dL (200); Creatinine, Serum 0.71 mg/dL (0.70-1.30); EST Glomerular Filtration Rate 115 mL/min (>60); Est Glom Filt Rate - Afr Amer 139 mL/min (>60); Globulin 3.6 g/dL (2.2-4.2); Glucose 107 mg/dL (74-106); High Density Lipoprotein 51 mg/dL; Protein, Total 7.3 g/dL (6.4-8.2); Sodium Level 141 mmol/L (136-145); Triglycerides 45 mg/dL; Very Low Density Lipoprotein 9 mg/dL (5-40)
== END | disposition home or self-care (01) ==
LOC: LAB 09:59
PROVIDERS: Family Provider Internal Medicine; PCP Internal Medicine; Referring Provider Internal Medicine; Visit Provider Internal Medicine
DX: E11.9 Type 2 diabetes mellitus without complications (principal); E78.49 Other hyperlipidemia; Z12.5 Encounter for screening for malignant neoplasm of prostate
CPT/HCPCS: 36415; 80053; 80061; 83036; 84153; 85025; G0103

== ENCOUNTER → 2018-12-30 | Outpatient (CLI) | payer MEDICARE, SELFPAY ==
[2018-11-04 13:06] VITALS: BMI 26.6
[2018-12-30 09:30] LABS: Absolute Lymphocyte Count 1.18 X10^3/ul (0.83-4.51); Absolute Neutrophil Count 2.7 X10^3/uL (2.0-7.7); Basophil# 0.04 X10^3/uL; Basophil% 0.9 % (0-1); Eosinophil# 0.19 X10^3/uL; Eosinophils% 4.1 % (0-5); Hematocrit 42.4 % (40-54); Hemoglobin 13.6 g/dl (13.0-16.5); Lymphocyte # 1.18 X10^3/ul (4.0); Lymphocyte % 25.5 % (19-41); Mean Corp Hgb Conc 32.1 g/gl (32-36); Mean Corpuscular Hgb 28.6 pg (27.0-32.0); Mean Corpuscular Volume 89.3 fL (80-94); Mean Platelet Vol. 10.7 fl (6.2-12.0); Monocyte# 0.47 X10^3/uL; Monocyte% 10.2 % (0-10); Neutrophil # 2.74 X10^3/uL (2.7-7.7); Neutrophil % 59.1 % (47-70); Platelet Count 170 K/mm3 (150-450); RBC Distribution Width CV 14.7 % (11.6-14.6); RBC Distribution Width SD 47.5 fl (35.1-43.9); Red Blood Count 4.75 M/mm3 (4.6-6.2); White Blood Count 4.6 K/mm3 (4.4-11.0)
[2018-12-30 09:32] LABS: POSITIVE COUNT NO; POSITIVE DIFFERENTIAL NO; POSITIVE MORPHOLOGY NO
[2018-12-30 09:54] LABS: ALB/GLOB Ratio 1.1 RATIO (0.9-2.4); AST(SGOT) 23 U/L (15-37); Alanine Aminotransfer ALT/SGPT 29 U/L (16-61); Albumin, Serum 3.5 g/dL (3.2-5.0); Alkaline Phosphatase 92 U/L (45-117); Anion Gap 6 (5-15); BUN 17 mg/dL (7-18); BUN/Creat Ratio 23.8 RATIO (10-20); Calcium,Total 8.7 mg/dL (8.5-10.1); Chloride 110 mmol/L (98-107); Creatinine, Serum 0.72 mg/dL (0.70-1.30); EST Glomerular Filtration Rate 114 mL/min (>60); Est Glom Filt Rate - Afr Amer 138 mL/min (>60); Globulin 3.2 g/dL (2.2-4.2); Glucose 89 mg/dL (74-106); Potassium 4.1 mmol/L (3.5-5.1); Protein, Total 6.7 g/dL (6.4-8.2); Sodium Level 144 mmol/L (136-145)
== END | disposition home or self-care (01) ==
LOC: LAB 08:37
PROVIDERS: Family Provider Internal Medicine; PCP Internal Medicine; Referring Provider Internal Medicine Rheumatology; Visit Provider Internal Medicine Rheumatology
DX: M05.79 Rheumatoid arthritis with rheumatoid factor of multiple sites without organ or systems involvement (principal); M17.0 Bilateral primary osteoarthritis of knee; E11.9 Type 2 diabetes mellitus without complications; J44.9 Chronic obstructive pulmonary disease, unspecified; E78.5 Hyperlipidemia, unspecified; I42.9 Cardiomyopathy, unspecified; G62.89 Other specified polyneuropathies; Z79.899 Other long term (current) drug therapy
CPT/HCPCS: 36415; 80053; 85025

== ENCOUNTER → 2019-02-25 14:25 | Outpatient (CLI) | payer MEDICARE, SELFPAY ==
[2018-08-29 13:12] VITALS: BMI 25.8
[2018-11-04 13:06] VITALS: BMI 26.6
--- NOTE | 2019-02-25 14:27 | CT_ITS ---
HISTORY: Lung screening, history of smoking, COPD COMPARISON: 04/19/2017 TECHNIQUE: Helical CT axial images of the thorax without IV contrast. Multiplanar reconstruction. A radiation dose optimization technique was used for this scan. # of images incl. paperwork: [phone] FINDINGS: LUNGS: Stable appearance of peripheral left lower lobe 6 mm nodular density lung window axial image 198; and stable appearance of 6 mm peripheral left lower lobe nodular density image 195. No new pulmonary nodules or pulmonary masses. Severe COPD predominantly within bilateral upper lobes with extensive pulmonary emphysema and pleural blebs. Moderate biapical and bilateral upper lobe pleural parenchymal scarring. Nodular scarring within the left upper lobe measuring 1.3 cm is unchanged. Hyperinflated lungs. No confluent areas of acute consolidation. MEDIASTINUM: No abnormally enlarged mediastinal or hilar lymph nodes. Stable appearance of subcentimeter mediastinal lymph nodes. PLEURA: No pleural effusion. No pneumothorax. CARDIAC: Normal heart size. No pericardial effusion. VASCULAR: Thoracic aorta is normal in caliber without aneurysm. The pulmonary vasculature demonstrates no significant dilatation. CHEST WALL: Chest wall is intact. No abnormal axillary lymphadenopathy. BONES: Moderate thoracic spine degenerative changes. No suspicious osseous lytic or blastic lesions seen. UPPER ABDOMEN: The visualized upper abdomen demonstrates no acute abnormality. CT/Low Dose CT Lung Screening IMPRESSION: 1. Stable appearance of two left lower lobe 6 mm pulmonary nodules, unchanged from March 2017. 2. Severe COPD. 3. No acute cardiopulmonary disease or evidence for malignancy. 4. Continued lung screening is recommended. Individualized dose optimization techniques were used for this CT. at 2210 Reported and signed by: Kory Crouch MD Electronically Signed: Kory Crouch MD at 22:09 EDT Tel , Service support ,
== END ==
PROVIDERS: Family Provider Internal Medicine; PCP Internal Medicine; Referring Provider Internal Medicine Pulmonary Disease; Visit Provider Internal Medicine Pulmonary Disease
DX: Z87.891 Personal history of nicotine dependence (principal); Z12.2 Encounter for screening for malignant neoplasm of respiratory organs
CPT/HCPCS: G0297

== ENCOUNTER → 2019-03-27 | Outpatient (CLI) | payer MEDICARE, SELFPAY ==
[2018-11-04 13:06] VITALS: BMI 26.6
[2019-03-27 09:49] LABS: Absolute Neutrophil Count 4.6 X10^3/uL (2.0-7.7); Basophil# 0.06 X10^3/uL; Basophil% 0.9 % (0-1); Eosinophil# 0.16 X10^3/uL; Eosinophils% 2.4 % (0-5); Hemoglobin 13.4 g/dL (13.0-16.5); Lymphocyte % 20.7 % (19-41); Mean Corp Hgb Conc 32.7 g/dL (32-36); Mean Corpuscular Hgb 29.6 pg (27.0-32.0); Mean Corpuscular Volume 90.7 fL (80-94); Mean Platelet Vol. 10.4 fl (6.2-12.0); Monocyte# 0.49 X10^3/uL; Monocyte% 7.2 % (0-10); NRBC Flagged by Analyzer 0 % (0-5); Neutrophil # 4.63 X10^3/uL (2.7-7.7); Neutrophil % 68.5 % (47-70); Platelet Count 192 K/mm3 (150-450); RBC Distribution Width CV 14.3 % (11.6-14.6); Red Blood Count 4.52 M/mm3 (4.6-6.2); White Blood Count 6.8 K/mm3 (4.4-11.0)
[2019-03-27 10:30] LABS: ALB/GLOB Ratio 0.9 RATIO (0.9-2.4); AST(SGOT) 19 U/L (15-37); Alanine Aminotransfer ALT/SGPT 27 U/L (16-61); Albumin, Serum 3.3 g/dL (3.2-5.0); Alkaline Phosphatase 107 U/L (45-117); Anion Gap 2 (5-15); BUN 14 mg/dL (7-18); BUN/Creat Ratio 21.1 RATIO (10-20); Calcium,Total 8.6 mg/dL (8.5-10.1); Chloride 110 mmol/L (98-107); Creatinine, Serum 0.66 mg/dL (0.70-1.30); EST Glomerular Filtration Rate 124 mL/min (>60); Est Glom Filt Rate - Afr Amer 150 mL/min (>60); Globulin 3.6 g/dL (2.2-4.2); Glucose 126 mg/dL (74-106); Potassium 3.8 mmol/L (3.5-5.1); Protein, Total 6.9 g/dL (6.4-8.2); Sodium Level 140 mmol/L (136-145)
== END | disposition home or self-care (01) ==
LOC: LAB 08:41
PROVIDERS: Family Provider Internal Medicine; PCP Internal Medicine; Referring Provider Internal Medicine Rheumatology; Visit Provider Internal Medicine Rheumatology
DX: M05.79 Rheumatoid arthritis with rheumatoid factor of multiple sites without organ or systems involvement (principal); E11.9 Type 2 diabetes mellitus without complications; J44.9 Chronic obstructive pulmonary disease, unspecified; E78.5 Hyperlipidemia, unspecified; I42.9 Cardiomyopathy, unspecified; G62.89 Other specified polyneuropathies; M17.0 Bilateral primary osteoarthritis of knee; Z79.899 Other long term (current) drug therapy
CPT/HCPCS: 36415; 80053; 85025

== ENCOUNTER → 2019-04-04 | Outpatient (CLI) | payer MEDICARE, SELFPAY ==
[2018-11-04 13:06] VITALS: BMI 26.6
[2019-04-08 20:07] LABS: QNTFERON TB Mitogen Value > 10.00 IU/mL (.); QNTFERON TB Nil Value 0.04 IU/mL (.); QNTFERON TB1+ Ag Value 0.05 IU/mL (.); QNTFERON TB2+ Ag Value 0.05 IU/mL (.)
[2019-04-08 20:33] LABS: QNTIFERON TB Positive Criteria Negative (Negative)
== END | disposition home or self-care (01) ==
LOC: LAB 10:35
PROVIDERS: Family Provider Internal Medicine; PCP Internal Medicine; Referring Provider Internal Medicine Rheumatology; Visit Provider Internal Medicine Rheumatology
DX: M05.79 Rheumatoid arthritis with rheumatoid factor of multiple sites without organ or systems involvement (principal); M17.0 Bilateral primary osteoarthritis of knee; Z79.899 Other long term (current) drug therapy
CPT/HCPCS: 36415; 86480

== ENCOUNTER → 2019-06-27 11:40 | Outpatient (CLI) | payer MEDICARE, SELFPAY ==
[2019-05-12 13:08] VITALS: BMI 26.6
[2019-06-27 13:41] LABS: Absolute Lymphocyte Count 1.55 X10^3/uL (0.83-4.51); Absolute Neutrophil Count 3.3 X10^3/uL (2.0-7.7); Basophil# 0.06 X10^3/uL; Basophil% 1.1 % (0-1); Eosinophil# 0.12 X10^3/uL; Eosinophils% 2.2 % (0-5); Hematocrit 42.4 % (40-54); Hemoglobin 13.6 g/dL (13.0-16.5); Lymphocyte # 1.55 X10^3/ul (4.0); Mean Corp Hgb Conc 32.1 g/dL (32-36); Mean Corpuscular Hgb 29.3 pg (27.0-32.0); Mean Corpuscular Volume 91.4 fL (80-94); Mean Platelet Vol. 10.1 fl (6.2-12.0); Monocyte# 0.45 X10^3/uL; Monocyte% 8.1 % (0-10); NRBC Flagged by Analyzer 0 % (0-5); Neutrophil # 3.34 X10^3/uL (2.7-7.7); Neutrophil % 60.4 % (47-70); Platelet Count 224 K/mm3 (150-450); RBC Distribution Width CV 15.2 % (11.6-14.6); Red Blood Count 4.64 M/mm3 (4.6-6.2); White Blood Count 5.5 K/mm3 (4.4-11.0)
[2019-06-27 14:04] LABS: ALB/GLOB Ratio 0.9 RATIO (0.9-2.4); AST(SGOT) 28 U/L (15-37); Alanine Aminotransfer ALT/SGPT 35 U/L (16-61); Albumin, Serum 3.6 g/dL (3.2-5.0); Alkaline Phosphatase 74 U/L (45-117); Anion Gap 4 (5-15); BUN 15 mg/dL (7-18); BUN/Creat Ratio 19.2 RATIO (10-20); Calcium,Total 9.1 mg/dL (8.5-10.1); Chloride 109 mmol/L (98-107); Creatinine, Serum 0.78 mg/dL (0.70-1.30); EST Glomerular Filtration Rate 103 mL/min (>60); Est Glom Filt Rate - Afr Amer 124 mL/min (>60); Globulin 3.8 g/dL (2.2-4.2); Glucose 86 mg/dL (74-106); Potassium 4.6 mmol/L (3.5-5.1); Protein, Total 7.4 g/dL (6.4-8.2); Sodium Level 142 mmol/L (136-145)
== END ==
PROVIDERS: Family Provider Internal Medicine; PCP Internal Medicine; Referring Provider Internal Medicine Rheumatology; Visit Provider Internal Medicine Rheumatology
DX: M05.79 Rheumatoid arthritis with rheumatoid factor of multiple sites without organ or systems involvement (principal); M17.0 Bilateral primary osteoarthritis of knee; Z79.899 Other long term (current) drug therapy
CPT/HCPCS: 36415; 80053; 85025

== ENCOUNTER → 2019-09-09 09:03 | Outpatient (CLI) | payer MEDICARE, SELFPAY ==
[2019-05-12 13:08] VITALS: BMI 26.6
[2019-09-09 12:30] LABS: M R Staph aureus DNA By PCR Negative (Negative); Probe Check PASS; Specimen Processing Control PASS
== END ==
PROVIDERS: PCP Internal Medicine; Referring Provider Internal Medicine; Visit Provider Internal Medicine
DX: B35.9 Dermatophytosis, unspecified (principal)
CPT/HCPCS: 87641

== ENCOUNTER → 2019-09-23 11:24 | Outpatient (CLI) | payer MEDICARE, SELFPAY ==
[2019-05-12 13:08] VITALS: BMI 26.6
[2019-09-23 12:17] LABS: Absolute Lymphocyte Count 1.72 X10^3/uL (0.83-4.51); Absolute Neutrophil Count 3.7 X10^3/uL (2.0-7.7); Basophil# 0.05 X10^3/uL; Basophil% 0.8 % (0-1); Eosinophil# 0.08 X10^3/uL; Eosinophils% 1.3 % (0-5); Hematocrit 41.8 % (40-54); Hemoglobin 14.1 g/dL (13.0-16.5); Lymphocyte # 1.72 X10^3/ul (4.0); Lymphocyte % 28.4 % (19-41); Mean Corp Hgb Conc 33.7 g/dL (32-36); Mean Corpuscular Hgb 31.4 pg (27.0-32.0); Mean Corpuscular Volume 93.1 fL (80-94); Mean Platelet Vol. 9.9 fl (6.2-12.0); Monocyte# 0.45 X10^3/uL; Monocyte% 7.4 % (0-10); NRBC Flagged by Analyzer 0 % (0-5); Neutrophil # 3.73 X10^3/uL (2.7-7.7); Neutrophil % 61.8 % (47-70); Platelet Count 172 K/mm3 (150-450); RBC Distribution Width CV 13.8 % (11.6-14.6); RBC Distribution Width SD 45.9 fl (35.1-43.9); Red Blood Count 4.49 M/mm3 (4.6-6.2); White Blood Count 6.1 K/mm3 (4.4-11.0)
[2019-09-23 12:53] LABS: ALB/GLOB Ratio 1.1 RATIO (0.9-2.4); AST(SGOT) 26 U/L (15-37); Alanine Aminotransfer ALT/SGPT 36 U/L (16-61); Albumin, Serum 3.5 g/dL (3.2-5.0); Alkaline Phosphatase 75 U/L (45-117); Anion Gap 6 (5-15); BUN 14 mg/dL (7-18); BUN/Creat Ratio 17.2 RATIO (10-20); Calcium,Total 8.7 mg/dL (8.5-10.1); Chloride 108 mmol/L (98-107); Creatinine, Serum 0.81 mg/dL (0.70-1.30); EST Glomerular Filtration Rate 98 mL/min (>60); Est Glom Filt Rate - Afr Amer 119 mL/min (>60); Globulin 3.3 g/dL (2.2-4.2); Glucose 106 mg/dL (74-106); Potassium 3.9 mmol/L (3.5-5.1); Protein, Total 6.8 g/dL (6.4-8.2); Sodium Level 141 mmol/L (136-145)
== END ==
PROVIDERS: PCP Internal Medicine; Referring Provider Internal Medicine Rheumatology; Visit Provider Internal Medicine Rheumatology
DX: M05.79 Rheumatoid arthritis with rheumatoid factor of multiple sites without organ or systems involvement (principal); M17.0 Bilateral primary osteoarthritis of knee; E11.9 Type 2 diabetes mellitus without complications; J44.9 Chronic obstructive pulmonary disease, unspecified; E78.5 Hyperlipidemia, unspecified; I42.9 Cardiomyopathy, unspecified; G62.89 Other specified polyneuropathies; Z79.899 Other long term (current) drug therapy
CPT/HCPCS: 36415; 80053; 85025

== ENCOUNTER → 2019-12-09 12:22 | Outpatient (CLI) | payer MEDICARE, SELFPAY ==
[2019-05-12 13:08] VITALS: BMI 26.6
[2019-12-09 14:53] LABS: M R Staph aureus DNA By PCR Negative (Negative); Probe Check PASS; Specimen Processing Control PASS
== END ==
PROVIDERS: PCP Internal Medicine; Referring Provider Internal Medicine; Visit Provider Internal Medicine
DX: Z01.818 Encounter for other preprocedural examination (principal); B35.9 Dermatophytosis, unspecified
CPT/HCPCS: 87641

== ENCOUNTER → 2020-01-29 12:11 | Outpatient (CLI) | payer MEDICARE, SELFPAY ==
[2019-05-12 13:08] VITALS: BMI 26.6
[2020-01-21 14:14] VITALS: BMI 25.8
--- NOTE | 2020-01-29 12:13 | US_ITS ---
STUDY: ABDOMINAL ULTRASOUND - RIGHT UPPER QUADRANT REASON FOR VISIT: Male, 74 years old ELEVATED LIVER ENZYMES TECHNIQUE: Ultrasound evaluation of the right upper quadrant was performed with real-time and static carvajal-scale imaging. TECHNICAL QUALITY: Adequate. COMPARISON: None. FINDINGS: Liver: The liver measures 15.0 cm. There is normal echogenicity of the liver. The bile ducts are within normal limits. There is hepatic color flow. The direction of portal flow is hepatopetal. There is no demonstrated mass lesion. Gallbladder: Normal distended gallbladder. The gallbladder wall measures 2 mm. There is a negative sonographic Stevens''s sign. There is no pericholecystic fluid. There are multiple echogenic structures within the gallbladder, consistent with multiple tiny gallstones. There is sludge. Possible polyps of the posterior wall measuring as much as 4 mm Common Bile Duct (C.B.D.): The common bile duct measures 4 mm. Pancreas: Normal size of the head, body and tail of the pancreas. There is normal echogenicity of the pancreas. There is no demonstrated pancreatic mass or cyst. Right Kidney: Normal size of the right kidney. The right kidney measures 10.2 cm. Normal renal cortex. There is no demonstrated renal mass or cyst. There is no right hydronephrosis. US/Liver IMPRESSION: Abnormal gallbladder. Sludge. Gravel/tiny gallstones. Cannot exclude polyps. Electronically Signed: Anthony Fox MD at 19:08 EDT , Service support ,
[2020-01-29 13:30] LABS: Absolute Lymphocyte Count 1.07 X10^3/uL (0.83-4.51); Absolute Neutrophil Count 3.2 X10^3/uL (2.0-7.7); Basophil# 0.06 X10^3/uL; Basophil% 1.2 % (0-1); Eosinophil# 0.13 X10^3/uL; Eosinophils% 2.7 % (0-5); Hematocrit 38.4 % (40-54); Hemoglobin 12.4 g/dL (13.0-16.5); Lymphocyte # 1.07 X10^3/ul (4.0); Lymphocyte % 21.9 % (19-41); Mean Corp Hgb Conc 32.3 g/dL (32-36); Mean Corpuscular Hgb 28.1 pg (27.0-32.0); Mean Corpuscular Volume 87.1 fL (80-94); Mean Platelet Vol. 9.7 fl (6.2-12.0); Monocyte# 0.39 X10^3/uL; NRBC Flagged by Analyzer 0 % (0-5); Neutrophil # 3.22 X10^3/uL (2.7-7.7); Platelet Count 265 K/mm3 (150-450); RBC Distribution Width CV 13.9 % (11.6-14.6); RBC Distribution Width SD 44.3 fl (35.1-43.9); Red Blood Count 4.41 M/mm3 (4.6-6.2); White Blood Count 4.9 K/mm3 (4.4-11.0)
[2020-01-29 13:48] LABS: ALB/GLOB Ratio 0.8 RATIO (0.9-2.4); AST(SGOT) 14 U/L (15-37); Alanine Aminotransfer ALT/SGPT 17 U/L (16-61); Albumin, Serum 3.3 g/dL (3.2-5.0); Alkaline Phosphatase 90 U/L (45-117); Anion Gap 4 (5-15); BUN 12 mg/dL (7-18); BUN/Creat Ratio 15.3 RATIO (10-20); Calcium,Total 8.7 mg/dL (8.5-10.1); Chloride 107 mmol/L (98-107); Cholesterol 188 mg/dL (200); Creatinine, Serum 0.78 mg/dL (0.70-1.30); EST Glomerular Filtration Rate 103 mL/min (>60); Est Glom Filt Rate - Afr Amer 124 mL/min (>60); Globulin 3.9 g/dL (2.2-4.2); Glucose 83 mg/dL (74-106); High Density Lipoprotein 41 mg/dL; Potassium 3.9 mmol/L (3.5-5.1); Protein, Total 7.2 g/dL (6.4-8.2); Sodium Level 139 mmol/L (136-145); Triglycerides 90 mg/dL; Very Low Density Lipoprotein 18 mg/dL (5-40)
== END ==
PROVIDERS: PCP Internal Medicine; Referring Provider Internal Medicine Rheumatology; Visit Provider Internal Medicine Rheumatology
DX: M05.79 Rheumatoid arthritis with rheumatoid factor of multiple sites without organ or systems involvement (principal); M17.0 Bilateral primary osteoarthritis of knee; E11.9 Type 2 diabetes mellitus without complications; J44.9 Chronic obstructive pulmonary disease, unspecified; E78.5 Hyperlipidemia, unspecified; I42.9 Cardiomyopathy, unspecified; G62.89 Other specified polyneuropathies; Z79.899 Other long term (current) drug therapy
CPT/HCPCS: 36415; 76705; 80053; 80061; 85025

== ENCOUNTER → 2020-02-16 10:01 | Outpatient (CLI) | payer MEDICARE, SELFPAY ==
[2019-05-12 13:08] VITALS: BMI 26.6
[2020-01-21 14:14] VITALS: BMI 25.8
--- NOTE | 2020-02-16 10:05 | CDU_ITS ---
Reason For Study: Stenosis Rt. Velocities/BP Lt. Velocities/BP Prox CCA 99.5/13.4 cm/sec. Prox CCA 99.8/18.8 cm/sec. Mid CCA 82.6/16 cm/sec. Mid CCA 90/20 cm/sec. Dist CCA 77.3/17.3 cm/sec. Dist CCA 61.8/16.3 cm/sec. Prox ICA 76/17.3 cm/sec. Prox ICA 53.1/17.9 cm/sec. Mid ICA 79.9/25.2 cm/sec. Mid ICA 81.6/26.7 cm/sec. Dist ICA 85.2/25.2 cm/sec. Dist ICA 76.1/27.8 cm/sec. Rt. ICA/CCA = 1.0. Lt. ICA/CCA = 0.9. Prox ECA 93/8.2 cm/sec. Prox ECA 87.6/11.4 cm/sec. Rt. Vert. 39/12.6 cm/sec. Lt. Vert. 36/10.7 cm/sec. Right Extracranial There is homogeneous, smooth atherosclerotic plaque noted in the right common carotid artery. There is heterogeneous, irregular atherosclerotic plaque noted in the right internal carotid artery. There is heterogeneous, irregular atherosclerotic plaque noted in the right external carotid artery. Antegrade flow is noted in the right vertebral artery. Left Extracranial There is intimal thickening but no significant atherosclerotic plaque noted in the left common carotid artery. There is homogeneous, smooth atherosclerotic plaque noted in the left internal carotid artery. There is intimal thickening but no significant atherosclerotic plaque noted in the left external carotid artery. Antegrade flow is noted in the left vertebral artery. Procedure Carotid Duplex [id number]. Exam performed in department. Interpretation Summary Mild (<50%) stenosis right extracranial internal carotid. Mild (<50%) stenosis left extracranial internal carotid. Flow within the vertebral arteries is antegrade bilaterally. Ordering Physician: Vanessa Christina Referring Physician: Vanessa Christina Performed By: Kaila Cesar RVT
== END ==
PROVIDERS: PCP Internal Medicine; Referring Provider Internal Medicine; Visit Provider Internal Medicine
DX: I65.23 Occlusion and stenosis of bilateral carotid arteries (principal)
CPT/HCPCS: 93880

== ENCOUNTER → 2020-02-26 12:40 | Outpatient (CLI) | payer MEDICARE, SELFPAY ==
[2019-05-12 13:08] VITALS: BMI 26.6
[2020-01-21 14:14] VITALS: BMI 25.8
--- NOTE | 2020-02-26 13:03 | CT_ITS ---
STUDY: CT CHEST WITHOUT CONTRAST REASON FOR EXAM: Male, 74 years old. Pulmonary nodule follow up, no new problems. Hx pleurisy. RADIATION DOSAGE (If Supplied By Facility): CTDIvol = ( 10.18 ) mGy, DLP = ( 412.24 ) mGycm TECHNIQUE: Transaxial imaging was performed without the administration of intravenous contrast material. Multiplanar coronal and sagittal images were reformatted. Individualized dose optimization techniques were used for this CT. COMPARISON: Comparison is made with prior study dated 02/25/2019. FINDINGS: Hyperinflation. Severe degree of femorofemoral and this changes more prominent in the upper lobes with areas of bullous formation, scarring worse in the lung apices. Stable appearance of the 2 adjacent noncalcified nodular densities in the lateral aspect of the left lower lobe measuring 6 mm. Normal heart and pericardium. There are multiple small lymph nodes within the mediastinum, which are normal in size and morphology most compatible with reactive lymph hyperplasia. Normal hilar regions. Normal unenhanced pulmonary arteries. There is atherosclerotic calcification of the aortic arch . Normal osseous structures. Hiatal hernia. CT/Chest without Contrast IMPRESSION: Stable examination. Electronically Signed: Seth Riggs, at 14:23 EDT , Service support ,
[2020-02-26 13:31] LABS: Absolute Lymphocyte Count 1.21 X10^3/uL (0.83-4.51); Absolute Neutrophil Count 3.7 X10^3/uL (2.0-7.7); Basophil# 0.04 X10^3/uL; Basophil% 0.7 % (0-1); Eosinophils% 1.8 % (0-5); Hematocrit 40.9 % (40-54); Hemoglobin 12.7 g/dL (13.0-16.5); Lymphocyte # 1.21 X10^3/ul (4.0); Lymphocyte % 21.6 % (19-41); Mean Corp Hgb Conc 31.1 g/dL (32-36); Mean Platelet Vol. 9.5 fl (6.2-12.0); Monocyte# 0.53 X10^3/uL; Monocyte% 9.4 % (0-10); NRBC Flagged by Analyzer 0 % (0-5); Neutrophil # 3.71 X10^3/uL (2.7-7.7); Neutrophil % 66.1 % (47-70); Platelet Count 239 K/mm3 (150-450); RBC Distribution Width CV 15.3 % (11.6-14.6); White Blood Count 5.6 K/mm3 (4.4-11.0)
[2020-02-26 13:48] LABS: ALB/GLOB Ratio 0.8 RATIO (0.9-2.4); AST(SGOT) 20 U/L (15-37); Alanine Aminotransfer ALT/SGPT 19 U/L (16-61); Albumin, Serum 3.3 g/dL (3.2-5.0); Alkaline Phosphatase 98 U/L (45-117); Anion Gap 4 (5-15); BUN 13 mg/dL (7-18); BUN/Creat Ratio 13.7 RATIO (10-20); Calcium,Total 8.7 mg/dL (8.5-10.1); Chloride 111 mmol/L (98-107); Creatinine, Serum 0.95 mg/dL (0.70-1.30); EST Glomerular Filtration Rate 82 mL/min (>60); Est Glom Filt Rate - Afr Amer 99 mL/min (>60); Globulin 4.1 g/dL (2.2-4.2); Glucose 89 mg/dL (74-106); Potassium 4.2 mmol/L (3.5-5.1); Protein, Total 7.4 g/dL (6.4-8.2); Sodium Level 143 mmol/L (136-145)
== END ==
PROVIDERS: Family Provider Internal Medicine; PCP Internal Medicine; Referring Provider Internal Medicine Pulmonary Disease; Visit Provider Internal Medicine Pulmonary Disease
DX: R91.1 Solitary pulmonary nodule (principal); M05.79 Rheumatoid arthritis with rheumatoid factor of multiple sites without organ or systems involvement; M17.0 Bilateral primary osteoarthritis of knee; E11.9 Type 2 diabetes mellitus without complications; J44.9 Chronic obstructive pulmonary disease, unspecified; E78.5 Hyperlipidemia, unspecified; I42.9 Cardiomyopathy, unspecified; G62.89 Other specified polyneuropathies; Z79.899 Other long term (current) drug therapy
CPT/HCPCS: 36415; 71250; 80053; 85025

== ENCOUNTER → 2020-06-03 10:56 | Outpatient (CLI) | payer MEDICARE, SELFPAY ==
[2019-05-12 13:08] VITALS: BMI 26.6
[2020-01-21 14:14] VITALS: BMI 25.8
[2020-06-03 11:36] LABS: Absolute Lymphocyte Count 1.27 X10^3/uL (0.83-4.51); Basophil# 0.06 X10^3/uL; Eosinophil# 0.11 X10^3/uL; Eosinophils% 1.8 % (0-5); Lymphocyte # 1.27 X10^3/ul (4.0); Lymphocyte % 20.6 % (19-41); Mean Corp Hgb Conc 32.5 g/dL (32-36); Mean Corpuscular Hgb 28.8 pg (27.0-32.0); Mean Corpuscular Volume 88.5 fL (80-94); Mean Platelet Vol. 9.9 fl (6.2-12.0); Monocyte# 0.67 X10^3/uL; Monocyte% 10.9 % (0-10); NRBC Flagged by Analyzer 0 % (0-5); Neutrophil # 4.02 X10^3/uL (2.7-7.7); Neutrophil % 65.2 % (47-70); Platelet Count 197 K/mm3 (150-450); RBC Distribution Width CV 16.7 % (11.6-14.6); RBC Distribution Width SD 53.4 fl (35.1-43.9); Red Blood Count 4.52 M/mm3 (4.6-6.2); White Blood Count 6.2 K/mm3 (4.4-11.0)
[2020-06-03 12:04] LABS: AST(SGOT) 23 U/L (15-37); Alanine Aminotransfer ALT/SGPT 36 U/L (16-61); Albumin, Serum 3.6 g/dL (3.2-5.0); Alkaline Phosphatase 110 U/L (45-117); Anion Gap 5 (5-15); BUN 17 mg/dL (7-18); BUN/Creat Ratio 21.2 RATIO (10-20); Calcium,Total 8.8 mg/dL (8.5-10.1); Chloride 107 mmol/L (98-107); EST Glomerular Filtration Rate 100 mL/min (>60); Est Glom Filt Rate - Afr Amer 121 mL/min (>60); Globulin 3.5 g/dL (2.2-4.2); Glucose 107 mg/dL (74-106); Potassium 3.9 mmol/L (3.5-5.1); Protein, Total 7.1 g/dL (6.4-8.2); Sodium Level 141 mmol/L (136-145)
== END ==
PROVIDERS: PCP Internal Medicine; Referring Provider Internal Medicine Rheumatology; Visit Provider Internal Medicine Rheumatology
DX: M05.79 Rheumatoid arthritis with rheumatoid factor of multiple sites without organ or systems involvement (principal); M17.0 Bilateral primary osteoarthritis of knee; E11.9 Type 2 diabetes mellitus without complications; J44.9 Chronic obstructive pulmonary disease, unspecified; E78.5 Hyperlipidemia, unspecified; I42.9 Cardiomyopathy, unspecified; G62.89 Other specified polyneuropathies; Z79.899 Other long term (current) drug therapy
CPT/HCPCS: 36415; 80053; 85025

== ENCOUNTER → 2020-08-17 08:58 | Outpatient (CLI) | payer MEDICARE, SELFPAY ==
[2020-07-15 10:02] VITALS: BMI 26.8
[2020-08-17 10:45] LABS: Basophil# 0.04 X10^3/uL; Basophil% 0.7 % (0-1); Eosinophil# 0.04 X10^3/uL; Eosinophils% 0.7 % (0-5); Hematocrit 41.1 % (40-54); Hemoglobin 12.9 g/dL (13.0-16.5); Lymphocyte % 19.3 % (19-41); Mean Corp Hgb Conc 31.4 g/dL (32-36); Mean Corpuscular Hgb 29.3 pg (27.0-32.0); Mean Corpuscular Volume 93.4 fL (80-94); Mean Platelet Vol. 10.3 fl (6.2-12.0); Monocyte# 0.49 X10^3/uL; Monocyte% 8.6 % (0-10); NRBC Flagged by Analyzer 0 % (0-5); Neutrophil # 4.01 X10^3/uL (2.7-7.7); Neutrophil % 70.5 % (47-70); Platelet Count 210 K/mm3 (150-450); RBC Distribution Width CV 14.9 % (11.6-14.6); RBC Distribution Width SD 50.9 fl (35.1-43.9); White Blood Count 5.7 K/mm3 (4.4-11.0)
[2020-08-17 11:11] LABS: ALB/GLOB Ratio 1.1 RATIO (0.9-2.4); AST(SGOT) 33 U/L (15-37); Alanine Aminotransfer ALT/SGPT 42 U/L (16-61); Albumin, Serum 3.6 g/dL (3.2-5.0); Alkaline Phosphatase 107 U/L (45-117); Anion Gap 5 (5-15); BUN 20 mg/dL (7-18); BUN/Creat Ratio 21.3 RATIO (10-20); Calcium,Total 8.5 mg/dL (8.5-10.1); Chloride 107 mmol/L (98-107); Creatinine, Serum 0.94 mg/dL (0.70-1.30); EST Glomerular Filtration Rate 83 mL/min (>60); Est Glom Filt Rate - Afr Amer 101 mL/min (>60); Globulin 3.4 g/dL (2.2-4.2); Glucose 98 mg/dL (74-106); Potassium 4.1 mmol/L (3.5-5.1); Sodium Level 141 mmol/L (136-145)
== END ==
PROVIDERS: PCP Internal Medicine; Referring Provider Internal Medicine Rheumatology; Visit Provider Internal Medicine Rheumatology
DX: M05.70 Rheumatoid arthritis with rheumatoid factor of unspecified site without organ or systems involvement (principal); M17.0 Bilateral primary osteoarthritis of knee; E11.9 Type 2 diabetes mellitus without complications; J44.9 Chronic obstructive pulmonary disease, unspecified; E78.5 Hyperlipidemia, unspecified; I42.9 Cardiomyopathy, unspecified; G62.89 Other specified polyneuropathies; Z79.899 Other long term (current) drug therapy
CPT/HCPCS: 36415; 80053; 85025

== ENCOUNTER → 2020-09-29 09:27 | Outpatient (CLI) | payer MEDICARE, SELFPAY ==
[2020-07-15 10:02] VITALS: BMI 26.8
[2020-09-29 10:36] LABS: Absolute Lymphocyte Count 1.25 X10^3/uL (0.83-4.51); Absolute Neutrophil Count 2.9 X10^3/uL (2.0-7.7); Basophil# 0.04 X10^3/uL; Basophil% 0.8 % (0-1); Eosinophil# 0.06 X10^3/uL; Eosinophils% 1.3 % (0-5); Hematocrit 43.1 % (40-54); Hemoglobin 13.5 g/dL (13.0-16.5); Lymphocyte # 1.25 X10^3/ul (4.0); Lymphocyte % 26.2 % (19-41); Mean Corp Hgb Conc 31.3 g/dL (32-36); Mean Corpuscular Hgb 29.2 pg (27.0-32.0); Mean Corpuscular Volume 93.1 fL (80-94); Mean Platelet Vol. 10.3 fl (6.2-12.0); Monocyte% 10.5 % (0-10); NRBC Flagged by Analyzer 0 % (0-5); Neutrophil # 2.92 X10^3/uL (2.7-7.7); Platelet Count 204 K/mm3 (150-450); RBC Distribution Width CV 14.4 % (11.6-14.6); RBC Distribution Width SD 48.7 fl (35.1-43.9); Red Blood Count 4.63 M/mm3 (4.6-6.2); White Blood Count 4.8 K/mm3 (4.4-11.0)
[2020-09-29 11:03] LABS: ALB/GLOB Ratio 1.1 RATIO (0.9-2.4); AST(SGOT) 40 U/L (15-37); Alanine Aminotransfer ALT/SGPT 55 U/L (16-61); Albumin, Serum 3.7 g/dL (3.2-5.0); Alkaline Phosphatase 76 U/L (45-117); Anion Gap 3 (5-15); BUN 16 mg/dL (7-18); BUN/Creat Ratio 20.4 RATIO (10-20); Calcium,Total 8.8 mg/dL (8.5-10.1); Chloride 108 mmol/L (98-107); Cholesterol 185 mg/dL (200); Creatinine, Serum 0.78 mg/dL (0.70-1.30); EST Glomerular Filtration Rate 102 mL/min (>60); Est Glom Filt Rate - Afr Amer 124 mL/min (>60); Globulin 3.5 g/dL (2.2-4.2); Glucose 91 mg/dL (74-106); High Density Lipoprotein 71 mg/dL; Potassium 4.2 mmol/L (3.5-5.1); Protein, Total 7.2 g/dL (6.4-8.2); Sodium Level 139 mmol/L (136-145); Triglycerides 62 mg/dL; Very Low Density Lipoprotein 12 mg/dL (5-40)
[2020-09-29 11:10] LABS: Hemoglobin A1c 5.4 % (3.8-5.6)
== END ==
PROVIDERS: PCP Internal Medicine; Referring Provider Internal Medicine; Visit Provider Internal Medicine
DX: E11.9 Type 2 diabetes mellitus without complications (principal); E78.49 Other hyperlipidemia
CPT/HCPCS: 36415; 80053; 80061; 83036; 85025

== ENCOUNTER → 2020-11-17 08:54 | Outpatient (CLI) | payer MEDICARE, SELFPAY ==
[2020-07-15 10:02] VITALS: BMI 26.8
[2020-11-17 09:48] LABS: Absolute Lymphocyte Count 1.65 X10^3/uL (0.83-4.51); Absolute Neutrophil Count 2.9 X10^3/uL (2.0-7.7); Basophil# 0.04 X10^3/uL; Basophil% 0.8 % (0-1); Eosinophil# 0.13 X10^3/uL; Eosinophils% 2.5 % (0-5); Hematocrit 42.5 % (40-54); Hemoglobin 13.5 g/dL (13.0-16.5); Lymphocyte # 1.65 X10^3/ul (0.83-4.51); Lymphocyte % 31.1 % (19-41); Mean Corp Hgb Conc 31.8 g/dL (32-36); Mean Corpuscular Hgb 29.6 pg (27.0-32.0); Mean Corpuscular Volume 93.2 fL (80-94); Mean Platelet Vol. 10.5 fl (6.2-12.0); Monocyte# 0.54 X10^3/uL; Monocyte% 10.2 % (0-10); NRBC Flagged by Analyzer 0 % (0-5); Neutrophil # 2.92 X10^3/uL (2.7-7.7); Platelet Count 191 K/mm3 (150-450); RBC Distribution Width CV 14.5 % (11.6-14.6); RBC Distribution Width SD 49.4 fl (35.1-43.9); Red Blood Count 4.56 M/mm3 (4.6-6.2); White Blood Count 5.3 K/mm3 (4.4-11.0)
[2020-11-17 10:01] LABS: ALB/GLOB Ratio 1.1 RATIO (0.9-2.4); AST(SGOT) 28 U/L (15-37); Alanine Aminotransfer ALT/SGPT 42 U/L (16-61); Albumin, Serum 3.5 g/dL (3.2-5.0); Alkaline Phosphatase 99 U/L (45-117); Anion Gap 4 (5-15); BUN 19 mg/dL (7-18); Calcium,Total 8.4 mg/dL (8.5-10.1); Chloride 109 mmol/L (98-107); Creatinine, Serum 0.83 mg/dL (0.70-1.30); EST Glomerular Filtration Rate 96 mL/min (>60); Est Glom Filt Rate - Afr Amer 116 mL/min (>60); Globulin 3.2 g/dL (2.2-4.2); Glucose 84 mg/dL (74-106); Protein, Total 6.7 g/dL (6.4-8.2); Sodium Level 142 mmol/L (136-145)
== END ==
PROVIDERS: PCP Internal Medicine; Referring Provider Internal Medicine Rheumatology; Visit Provider Internal Medicine Rheumatology
DX: M05.70 Rheumatoid arthritis with rheumatoid factor of unspecified site without organ or systems involvement (principal); M17.0 Bilateral primary osteoarthritis of knee; E11.9 Type 2 diabetes mellitus without complications; J44.9 Chronic obstructive pulmonary disease, unspecified; E78.5 Hyperlipidemia, unspecified; I42.9 Cardiomyopathy, unspecified; G62.89 Other specified polyneuropathies; Z79.899 Other long term (current) drug therapy
CPT/HCPCS: 36415; 80053; 85025

== ENCOUNTER → 2021-02-09 16:51 | Outpatient (CLI) | payer MEDICARE, SELFPAY ==
[2020-07-15 10:02] VITALS: BMI 26.8
--- NOTE | 2021-02-09 16:58 | CT_ITS ---
STUDY: LOW DOSE CT LUNG CANCER SCREENING REASON FOR EXAM: Male, 75 years old. LUNG NODULE. Patient smoked three-quarter pack per day for 38 years. RADIATION DOSAGE (If Supplied By Facility): CTDIvol = ( 3.02 ) mGy, DLP = ( 110.98 ) mGycm TECHNIQUE: No contrast was administered. Low dose technique was utilized (average mAS-38 and kVp 120). 1.25 mm axial source images with a slice interval of 1.25-mm were reconstructed in lung windows. 2.5 mm axial source images with a slice interval of 2.5-mm were reconstructed in lung windows. 5.0 mm axial source images with a slice interval of 5.0-mm were reconstructed in soft tissue windows. Nodule measured using lung windows on PACS and/or independent workstation with automated measurement of minimum and maximum diameter. Nodule measurement reported as average diameter rounded to the nearest whole number. Growth is defined as an increase ins size of greater than 1.5 mm. COMPARISON: Comparison is made with prior examination dated 02/26/2020. NODULES: Stable appearance of the 2 adjacent 6 mm noncalcified nodules in the lateral peripheral aspect of the left lower lobe as seen on axial image #206 and 204. Emphysema: Diffuse emphysematous changes with centrilobular changes in the upper lobes. Stable scarring at both lung apices. Endobronchial lesion: None Aorta: Atherosclerotic plaques of the aortic arch. Coronary arteries: Coronary artery calcification. Other chest and abdominal findings: Small hiatal hernia. CT/Low Dose CT Lung Screening IMPRESSION: Lung-RADS category 2 - Continue annual screening with LDCT in 12 months. IMPORTANT NOTES FOR USE: ACR Lung-RADS Version 1.1 Assessment Categories Release Date: 2018 Category: Coded 0-4 bases on nodule(s) with highest degree of suspicion. Negative screen is defined as categories 1 and 2; a positive screen is defined as categories 3 and 4. Category 3 and 4A nodules that are unchanged on interval CT should be coded as category 2, and individuals returned to screening in 12 months. Category 4X: Category 3 or 4 nodules with additional imaging findings that increase the suspicion of lung cancer, such as spiculation, GGN that doubles in size in 1 year, enlarged lymph notes, etc. Category Modifiers: S (significant finding unrelated to lung cancer) Electronically Signed: Seth Riggs MD at 8:46 EDT , Service support ,
== END ==
PROVIDERS: PCP Internal Medicine; Referring Provider Internal Medicine; Visit Provider Internal Medicine
DX: Z87.891 Personal history of nicotine dependence (principal); I65.23 Occlusion and stenosis of bilateral carotid arteries; M85.80 Other specified disorders of bone density and structure, unspecified site; R91.1 Solitary pulmonary nodule
CPT/HCPCS: 71271

== ENCOUNTER → 2021-02-11 10:19 | Outpatient (CLI) | payer MEDICARE, SELFPAY ==
[2021-02-11 11:33] LABS: Absolute Lymphocyte Count 1.71 X10^3/uL (0.83-4.51); Absolute Neutrophil Count 2.4 X10^3/uL (2.0-7.7); Basophil# 0.05 X10^3/uL; Basophil% 1.1 % (0-1); Eosinophils% 2.1 % (0-5); Hematocrit 38.2 % (40-54); Hemoglobin 12.6 g/dL (13.0-16.5); Lymphocyte # 1.71 X10^3/ul (0.83-4.51); Lymphocyte % 36.6 % (19-41); Mean Corpuscular Hgb 30.2 pg (27.0-32.0); Mean Corpuscular Volume 91.6 fL (80-94); Mean Platelet Vol. 10.6 fl (6.2-12.0); Monocyte# 0.41 X10^3/uL; Monocyte% 8.8 % (0-10); NRBC Flagged by Analyzer 0 % (0-5); Neutrophil # 2.38 X10^3/uL (2.7-7.7); Platelet Count 184 K/mm3 (150-450); RBC Distribution Width SD 47.3 fl (35.1-43.9); Red Blood Count 4.17 M/mm3 (4.6-6.2); White Blood Count 4.7 K/mm3 (4.4-11.0)
[2021-02-11 12:04] LABS: ALB/GLOB Ratio 1.1 RATIO (0.9-2.4); AST(SGOT) 22 U/L (15-37); Alanine Aminotransfer ALT/SGPT 38 U/L (16-61); Albumin, Serum 3.5 g/dL (3.2-5.0); Alkaline Phosphatase 83 U/L (45-117); Anion Gap 4 (5-15); BUN 17 mg/dL (7-18); BUN/Creat Ratio 24.3 RATIO (10-20); Calcium,Total 8.5 mg/dL (8.5-10.1); Chloride 109 mmol/L (98-107); EST Glomerular Filtration Rate 116 mL/min (>60); Est Glom Filt Rate - Afr Amer 141 mL/min (>60); Globulin 3.1 g/dL (2.2-4.2); Glucose 143 mg/dL (74-106); Potassium 3.5 mmol/L (3.5-5.1); Protein, Total 6.6 g/dL (6.4-8.2); Sodium Level 141 mmol/L (136-145)
== END ==
PROVIDERS: PCP Internal Medicine; Visit Provider Internal Medicine Rheumatology
DX: M05.70 Rheumatoid arthritis with rheumatoid factor of unspecified site without organ or systems involvement (principal); M17.0 Bilateral primary osteoarthritis of knee; E11.9 Type 2 diabetes mellitus without complications; J44.9 Chronic obstructive pulmonary disease, unspecified; E78.5 Hyperlipidemia, unspecified; I42.9 Cardiomyopathy, unspecified; G62.89 Other specified polyneuropathies; Z79.899 Other long term (current) drug therapy
CPT/HCPCS: 36415; 80053; 85025

== ENCOUNTER → 2021-02-17 08:51 | Outpatient (CLI) | payer MEDICARE, SELFPAY ==
[2020-07-15 10:02] VITALS: BMI 26.8
--- NOTE | 2021-02-17 09:03 | BD_ITS ---
STUDY: DUAL ENERGY X-RAY ABSORPTIOMETRY / DXA REASON FOR EXAM: Male, 75 years old. [id number]. Long-term steroid use for rheumatoid arthritis. TECHNIQUE: Bone Mineral Density (BMD) measurements of lumbar spine and bilateral hips were obtained. COMPARISON: Comparison is made with prior study dated 07/17/2017. FINDINGS: Lumbar Spine (L1-L4): g/cm2 (1.047) / T-score (-0.2) / Z-score (0.9) Findings are suggestive of normal bone density with a low fracture risk. Left Femur Total: g/cm2 (0.888) / T-score (-1.0) / Z-score (-0.1) Left Femoral Neck: g/cm2 (0.651) / T-score (-2.0) / Z-score (-0.6) Right Femur Total: g/cm2 (0.844) / T-score (-1.3) / Z-score (-0.4) Right Femoral Neck: g/cm2 (0.633) / T-score (-2.2) / Z-score (-0.8) The T-Scores on the most recent prior examination were: Lumbar Spine (L1-L4): There has been worsening of bone density since the previous examination. Left Femur Total: which represents an improvement of 0.2%. Right Femur Total: which represents an improvement of 1.3%. BD/Dexa Bone Density Study IMPRESSION: The patient is considered osteopenic as outlined below according to World [employer] Organization (WHO) criteria with a moderate fracture risk. There has been improvement of bone density since the previous examination. Reference Information: The T-score is the number of standard deviations above or below the standard which is normal for young adults at their peak bone mineral density. The World Health Organization (WHO) interprets the T-scores as follows: Above -1 Normal bone density Between -1 and -2.5 Osteopenia Equal to / or below -2.5 Osteoporosis As a practical clinical guideline, osteopenia may be graded as follows: Mild -1 through -1.5 Moderate -1.6 through -2.0 Severe -2.1 through -2.4 The Z-score is the number of standard deviations above or below age-matched controls. A Z-score of less than -1.5 would be considered abnormal. References: 1. NIH Osteoporosis and Related Bone Diseases www osteo.org 2. International Society for Clinical Densitometry www iscd.org 3. National Osteoporosis Foundation www nof.org Electronically Signed: Seth Riggs MD at 7:36 EDT , Service support ,
--- NOTE | 2021-02-17 09:39 | CDU_ITS ---
Reason For Study: carotid stenosis Rt. Velocities/BP Lt. Velocities/BP Prox CCA 70.8/17.3 cm/sec. Prox CCA 79.9/21.2 cm/sec. Mid CCA 66.9/20.0 cm/sec. Mid CCA 78.6/23.9 cm/sec. Dist CCA 65.6/23.9 cm/sec. Dist CCA 53.8/13.4 cm/sec. Prox ICA 108.6/33.0 cm/sec. Prox ICA 65.6/16.0 cm/sec. Mid ICA 77.3/25.2 cm/sec. Mid ICA 64.1/25.6 cm/sec. Dist ICA 106.0/36.9 cm/sec. Dist ICA 118.8/39.9 cm/sec. Rt. ICA/CCA = 1.6. Lt. ICA/CCA = 1.5. Prox ECA 77.3/12.1 cm/sec. Prox ECA 77.3/13.4 cm/sec. Rt. Vert. 52.5/17.3 cm/sec. Lt. Vert. 59.7/20.1 cm/sec. Right Extracranial There is homogeneous, smooth atherosclerotic plaque noted in the right common carotid artery. There is heterogeneous, irregular atherosclerotic plaque noted in the right internal carotid artery. There is homogeneous, smooth atherosclerotic plaque noted in the right external carotid artery. Antegrade flow is noted in the right vertebral artery. Left Extracranial There is intimal thickening but no significant atherosclerotic plaque noted in the left common carotid artery. There is homogeneous, smooth atherosclerotic plaque noted in the left internal carotid artery. There is intimal thickening but no significant atherosclerotic plaque noted in the left external carotid artery. Antegrade flow is noted in the left vertebral artery. Procedure Carotid Duplex [id number]. This is a Carotid Duplex examination using B-mode, color flow and specral Doppler. The exam was diagnostic. Exam performed in department. VL/Carotid Duplex Ultrasound Interpretation Summary Mild (<50%) stenosis right extracranial internal carotid. Mild (<50%) stenosis left extracranial internal carotid. Flow within the vertebral arteries is antegrade bilaterally. Ordering Physician: Vanessa Christina Performed By: Keenan Lincoln RVT
== END ==
PROVIDERS: PCP Internal Medicine; Referring Provider Internal Medicine; Visit Provider Internal Medicine
DX: I65.23 Occlusion and stenosis of bilateral carotid arteries (principal); M85.89 Other specified disorders of bone density and structure, multiple sites; R91.1 Solitary pulmonary nodule
CPT/HCPCS: 77080; 93880

== ENCOUNTER → 2021-02-18 10:22 | Outpatient (CLI) | payer MEDICARE, SELFPAY ==
--- NOTE | 2021-02-18 10:24 | RAD_ITS ---
STUDY: X-RAY - PELVIS AND LEFT HIP REASON FOR EXAM: Male, 75 years old. PAIN TECHNIQUE: 3 views of the pelvis and hip. COMPARISON: None. FINDINGS: There is a non-specific bowel gas pattern. There is evidence of prior right inguinal hernia repair with a mesh. Normal bilateral iliac wings, sacroiliac joints and visualized sacrum. Normal bilateral superior and inferior pubic rami. Normal pubic symphysis. Normal bilateral ischial tuberosities. Normal visualized femoral head. Normal acetabulum. There is mild articular joint space narrowing of the hip. Degenerative changes are seen in the lower lumbar spine. RAD/HIP, UNI W/ Pelvis 2-3 Views IMPRESSION: Mild degree of left hip joint narrowing. Electronically Signed: Seth Riggs MD at 10:44 EDT , Service support ,
== END ==
PROVIDERS: PCP Internal Medicine; Referring Provider Internal Medicine Rheumatology; Visit Provider Internal Medicine Rheumatology
DX: M05.70 Rheumatoid arthritis with rheumatoid factor of unspecified site without organ or systems involvement (principal); M17.0 Bilateral primary osteoarthritis of knee; E11.9 Type 2 diabetes mellitus without complications; J44.9 Chronic obstructive pulmonary disease, unspecified; E78.5 Hyperlipidemia, unspecified; I42.9 Cardiomyopathy, unspecified; G62.89 Other specified polyneuropathies; Z79.899 Other long term (current) drug therapy
CPT/HCPCS: 73502

== ENCOUNTER → 2021-05-05 13:29 | Outpatient (CLI) | payer MEDICARE, SELFPAY ==
[2021-05-05 15:17] LABS: Absolute Lymphocyte Count 1.24 X10^3/uL (0.83-4.51); Absolute Neutrophil Count 2.6 X10^3/uL (2.0-7.7); Basophil# 0.03 X10^3/uL; Basophil% 0.7 % (0-1); Eosinophil# 0.03 X10^3/uL; Eosinophils% 0.7 % (0-5); Hematocrit 40.4 % (40-54); Lymphocyte # 1.24 X10^3/ul (0.83-4.51); Lymphocyte % 28.1 % (19-41); Mean Corp Hgb Conc 32.2 g/dL (32-36); Mean Corpuscular Hgb 30.2 pg (27.0-32.0); Mean Corpuscular Volume 93.7 fL (80-94); Monocyte# 0.52 X10^3/uL; Monocyte% 11.8 % (0-10); NRBC Flagged by Analyzer 0 % (0-5); Neutrophil # 2.57 X10^3/uL (2.7-7.7); Neutrophil % 58.2 % (47-70); Platelet Count 152 K/mm3 (150-450); RBC Distribution Width CV 14.6 % (11.6-14.6); RBC Distribution Width SD 50.4 fl (35.1-43.9); Red Blood Count 4.31 M/mm3 (4.6-6.2); White Blood Count 4.4 K/mm3 (4.4-11.0)
[2021-05-05 16:04] LABS: ALB/GLOB Ratio 1.2 RATIO (0.9-2.4); AST(SGOT) 51 U/L (15-37); Alanine Aminotransfer ALT/SGPT 65 U/L (16-61); Albumin, Serum 3.5 g/dL (3.2-5.0); Alkaline Phosphatase 78 U/L (45-117); Anion Gap 4 (5-15); BUN 15 mg/dL (7-18); Chloride 109 mmol/L (98-107); Creatinine, Serum 0.79 mg/dL (0.70-1.30); EST Glomerular Filtration Rate 101 mL/min (>60); Est Glom Filt Rate - Afr Amer 122 mL/min (>60); Glucose 88 mg/dL (74-106); Potassium 4.3 mmol/L (3.5-5.1); Protein, Total 6.5 g/dL (6.4-8.2); Sodium Level 143 mmol/L (136-145)
== END ==
PROVIDERS: PCP Internal Medicine; Referring Provider Internal Medicine Rheumatology; Visit Provider Internal Medicine Rheumatology
DX: M05.752 Rheumatoid arthritis with rheumatoid factor of left hip without organ or systems involvement (principal); M25.552 Pain in left hip; M17.0 Bilateral primary osteoarthritis of knee; E11.9 Type 2 diabetes mellitus without complications; J44.9 Chronic obstructive pulmonary disease, unspecified; E78.5 Hyperlipidemia, unspecified; I42.9 Cardiomyopathy, unspecified; G62.89 Other specified polyneuropathies; Z79.899 Other long term (current) drug therapy
CPT/HCPCS: 36415; 80053; 85025

== ENCOUNTER → 2021-05-17 10:44 | Outpatient (CLI) | payer MEDICARE, SELFPAY ==
--- NOTE | 2021-05-17 10:51 | VDLE_ITS ---
Reason For Study: swelling RIGHT LEFT GSV is normal. CFV is compressible, spontaneous, phasic, CFV is compressible, spontaneous, phasic, competent, and demonstrates normal competent and demonstrates normal augmentation. augmentation. FV and POP V are dilated and noncompressible FV is compressible, spontaneous, phasic, with decreased flow. competent and demonstrates normal T/P Trunk, PTV, Peroneal V, and Soleus V are augmentation. dilated and noncompressible. POP V is compressible, spontaneous, phasic, competent and demonstrates normal augmentation. T/P Trunk is compressible. PTV is compressible. RT PerV is compressible. Soleus V is dilated and noncompressible. Procedure This is a venous duplex using B-mode, color flow and spectral Doppler. Exam performed in department. The exam was diagnostic. A preliminary report was called and/or faxed to Dr. Christina's office. Pt to go directly to Dr. Christina's office for instructions. VL/Venous Duplex US - Huber Extrem Interpretation Summary Acute deep vein thrombosis is noted in the right soleus vein. The remainder of the right lower extremity deep venous system is patent and compressible. Valvular competence ap pears intact within the proximal deep venous system on the right. Acute deep vein thrombosis is not ed in the left femoral vein. Acute deep vein thrombosis is noted in the left popliteal vein. A cute deep vein thrombosis is noted in the left tibio-peroneal trunk. Acute deep vein thrombosi s is noted in the left posterior tibial vein. Acute deep vein thrombosis is noted in the left per tan vein. Acute deep vein thrombosis is noted in the left soleus vein. The left common femoral vein is patent, compressible, and competent. Great saphenous veins are patent and compressible bilaterally. Ordering Physician: Vanessa Christina Performed By: Keenan Lincoln RVT
== END ==
PROVIDERS: PCP Internal Medicine; Referring Provider Internal Medicine; Visit Provider Internal Medicine
DX: M79.89 Other specified soft tissue disorders (principal)
CPT/HCPCS: 93970

== ENCOUNTER → 2021-05-27 12:44 | Outpatient (CLI) | payer MEDICARE, SELFPAY ==
--- NOTE | 2021-05-27 12:49 | VDLE_ITS ---
Reason For Study: DVT, Bilateral lower limbs RIGHT LEFT GSV is normal. GSV is normal. CFV is compressible, spontaneous, phasic, CFV is compressible, spontaneous, phasic, competent and demonstrates normal competent, and demonstrates normal augmentation. augmentation. FV is compressible, spontaneous, phasic, FV prox is noncompressible with minimal competent and demonstrates normal venous flow noted. augmentation. FV mid-dist, PopV, T/P Trunk, and SoleusV are POP V is compressible, spontaneous, phasic, partially noncompressible with venous flow competent and demonstrates normal noted. augmentation. PTV is compressible. T/P Trunk is compressible. LT PerV is compressible. PTV is compressible. RT PerV is compressible. SoleusV is noncompressible with minimal venous flow noted. Procedure This is a venous duplex using B-mode, color flow and spectral Doppler. Exam performed in department. Compared to 05/17/2021. A preliminary report was called and/or faxed to [facility]. VL/Venous Duplex US - Huber Extrem Interpretation Summary Acute deep vein thrombosis is noted in the right soleus vein. The remainder of the right lower extremity deep venous system is patent and compressible. Valvular competence ap pears intact within the proximal deep venous system on the right . Acute deep vein thrombosis is no navdeep in the left femoral vein. Acute deep vein thrombosis is noted in the left popliteal vein. A cute deep vein thrombosis is noted in the left tibio-peroneal trunk. Acute deep vein thrombosi s is noted in the left soleus vein. The remainder of the left lower extremity deep venous system is patent and compressible. The great saphenous veins are patent and compressible bilaterally . Ordering Physician: Vanessa Christina Referring Physician: Vanessa Christina Performed By: Kaila Cesar RVT
== END ==
PROVIDERS: PCP Internal Medicine; Referring Provider Internal Medicine; Visit Provider Internal Medicine
DX: M79.89 Other specified soft tissue disorders (principal)
CPT/HCPCS: 93970

== ENCOUNTER 2021-08-02 09:06 | Outpatient (CLI) | payer MEDICARE, SELFPAY ==
[2021-08-02 09:53] LABS: Absolute Lymphocyte Count 0.82 X10^3/uL (0.83-4.51); Absolute Neutrophil Count 5.3 X10^3/uL (2.0-7.7); Basophil# 0.02 X10^3/uL; Basophil% 0.3 % (0-1); Eosinophil# 0.02 X10^3/uL; Eosinophils% 0.3 % (0-5); Hematocrit 43.8 % (40-54); Hemoglobin 14.2 g/dL (13.0-16.5); Lymphocyte # 0.82 X10^3/ul (0.83-4.51); Lymphocyte % 12.9 % (19-41); Mean Corp Hgb Conc 32.4 g/dL (32-36); Mean Corpuscular Hgb 29.6 pg (27.0-32.0); Mean Corpuscular Volume 91.4 fL (80-94); Mean Platelet Vol. 10.2 fl (6.2-12.0); Monocyte# 0.23 X10^3/uL; Monocyte% 3.6 % (0-10); NRBC Flagged by Analyzer 0 % (0-5); Neutrophil # 5.26 X10^3/uL (2.7-7.7); Neutrophil % 82.4 % (47-70); Platelet Count 194 K/mm3 (150-450); RBC Distribution Width SD 46.7 fl (35.1-43.9); Red Blood Count 4.79 M/mm3 (4.6-6.2); White Blood Count 6.4 K/mm3 (4.4-11.0)
[2021-08-02 10:31] LABS: AST(SGOT) 23 U/L (15-37); Alanine Aminotransfer ALT/SGPT 55 U/L (16-61); Albumin, Serum 3.7 g/dL (3.2-5.0); Alkaline Phosphatase 80 U/L (45-117); Anion Gap 4 (5-15); BUN 13 mg/dL (7-18); BUN/Creat Ratio 15.9 RATIO (10-20); Calcium,Total 9.1 mg/dL (8.5-10.1); Chloride 108 mmol/L (98-107); Creatinine, Serum 0.82 mg/dL (0.70-1.30); EST Glomerular Filtration Rate 97 mL/min (>60); Est Glom Filt Rate - Afr Amer 118 mL/min (>60); Globulin 3.6 g/dL (2.2-4.2); Glucose 148 mg/dL (74-106); Potassium 4.3 mmol/L (3.5-5.1); Protein, Total 7.3 g/dL (6.4-8.2); Sodium Level 140 mmol/L (136-145)
== END 2021-08-02 23:59 | disposition home or self-care (01) ==
LOC: LAB 09:09
PROVIDERS: PCP Internal Medicine; Referring Provider Internal Medicine Rheumatology; Visit Provider Internal Medicine Rheumatology
DX: E11.9 Type 2 diabetes mellitus without complications (principal); M05.79 Rheumatoid arthritis with rheumatoid factor of multiple sites without organ or systems involvement; J44.9 Chronic obstructive pulmonary disease, unspecified; I42.9 Cardiomyopathy, unspecified; M17.0 Bilateral primary osteoarthritis of knee; E78.5 Hyperlipidemia, unspecified; G62.89 Other specified polyneuropathies; Z79.899 Other long term (current) drug therapy
CPT/HCPCS: 36415; 80053; 85025

== ENCOUNTER 2021-08-08 13:54 | Outpatient (CLI) | payer MEDICARE, SELFPAY ==
--- NOTE | 2021-08-08 13:57 | VDLE_ITS ---
Reason For Study: DVT RIGHT LEFT GSV is normal. GSV is normal. CFV is compressible, spontaneous, phasic, CFV is compressible, spontaneous, phasic, competent and demonstrates normal competent, and demonstrates normal augmentation. augmentation. FV is compressible, spontaneous, phasic, POP V is compressible, spontaneous, phasic, competent and demonstrates normal competent and demonstrates normal augmentation. augmentation. POP V is compressible, spontaneous, phasic, T/P Trunk is compressible. competent and demonstrates normal PTV is compressible. augmentation. LT PerV is compressible. T/P Trunk is compressible. Lt FV mid is partially compressible with PTV is compressible. blood flow RT PerV is compressible. Rt SoleusV is compressible. Lt FV prox and distal are compressible Procedure This is a venous duplex using B-mode, color Lt SoleusV is partially compressible and flow and spectral Doppler. dilated. Exam performed in department. Compared to study on 05/27/2021. A preliminary report was called and/or faxed to Dr. Christina. VL/Venous Duplex US - Huber Extrem Interpretation Summary Acute deep vein thrombosis is noted in the left femoral vein. Acute deep vein t hrombosis is noted in the left soleus vein. The remainder of the left lower extremity deep venous sys tem is patent and compressible. Deep veins of the right lower extremity are patent and compressib le segmentally. There is no evidence of right lower extremity deep vein thrombosis. Valvular competen ce appears intact within the proximal deep venous system on the right . The great saphenous veins appear bilaterally patent and compressible segmentally. Compared to a prior study on 05/27/2021, th ere has been resolution of the deep vein thrombosis in the right lower extremity, and improv ement of the deep vein thrombosis in the left lower extremity. Ordering Physician: Vanessa Christina Referring Physician: Fast, Vanessa Performed By: Roof, Annemarie, RDCS, RVT
== END 2021-08-08 23:59 | disposition home or self-care (01) ==
LOC: CVS 13:55
PROVIDERS: PCP Internal Medicine; Referring Provider Internal Medicine; Visit Provider Internal Medicine
DX: M79.661 Pain in right lower leg (principal); I82.403 Acute embolism and thrombosis of unspecified deep veins of lower extremity, bilateral
CPT/HCPCS: 93970

== ENCOUNTER 2021-08-12 07:28 | Outpatient (CLI) | payer MEDICARE, SELFPAY ==
[2021-08-12 07:43] LABS: Absolute Lymphocyte Count 1.43 X10^3/uL (0.83-4.51); Absolute Neutrophil Count 1.9 X10^3/uL (2.0-7.7); Basophil# 0.04 X10^3/uL; Eosinophil# 0.06 X10^3/uL; Eosinophils% 1.6 % (0-5); Hematocrit 41.1 % (40-54); Hemoglobin 13.7 g/dL (13.0-16.5); Lymphocyte # 1.43 X10^3/ul (0.83-4.51); Lymphocyte % 37.3 % (19-41); Mean Corp Hgb Conc 33.3 g/dL (32-36); Mean Corpuscular Hgb 30.4 pg (27.0-32.0); Mean Corpuscular Volume 91.3 fL (80-94); Mean Platelet Vol. 9.7 fl (6.2-12.0); Monocyte# 0.42 X10^3/uL; NRBC Flagged by Analyzer 0 % (0-5); Neutrophil # 1.86 X10^3/uL (2.7-7.7); Neutrophil % 48.6 % (47-70); Platelet Count 211 K/mm3 (150-450); RBC Distribution Width CV 14.1 % (11.6-14.6); RBC Distribution Width SD 46.6 fl (35.1-43.9); White Blood Count 3.8 K/mm3 (4.4-11.0)
[2021-08-12 07:59] LABS: ALB/GLOB Ratio 1.2 RATIO (0.9-2.4); AST(SGOT) 23 U/L (15-37); Alanine Aminotransfer ALT/SGPT 34 U/L (16-61); Albumin, Serum 3.7 g/dL (3.2-5.0); Alkaline Phosphatase 74 U/L (45-117); Anion Gap 2 (5-15); BUN 13 mg/dL (7-18); BUN/Creat Ratio 17.5 RATIO (10-20); Calcium,Total 8.5 mg/dL (8.5-10.1); Chloride 109 mmol/L (98-107); Cholesterol 208 mg/dL (200); Creatinine, Serum 0.74 mg/dL (0.70-1.30); EST Glomerular Filtration Rate 108 mL/min (>60); Est Glom Filt Rate - Afr Amer 131 mL/min (>60); Globulin 3.2 g/dL (2.2-4.2); Glucose 97 mg/dL (74-106); High Density Lipoprotein 63 mg/dL; Potassium 4.1 mmol/L (3.5-5.1); Protein, Total 6.9 g/dL (6.4-8.2); Sodium Level 139 mmol/L (136-145); Triglycerides 66 mg/dL; Very Low Density Lipoprotein 13 mg/dL (5-40)
[2021-08-12 08:03] LABS: Hemoglobin A1c 5.7 % (3.8-5.6)
== END 2021-08-12 23:59 | disposition home or self-care (01) ==
PROVIDERS: PCP Internal Medicine; Referring Provider Internal Medicine; Visit Provider Internal Medicine
DX: E11.9 Type 2 diabetes mellitus without complications (principal); E78.49 Other hyperlipidemia
CPT/HCPCS: 36415; 80053; 80061; 83036; 85025

== ENCOUNTER 2021-09-27 09:57 | Outpatient (CLI) | payer MEDICARE, SELFPAY ==
--- NOTE | 2021-09-27 10:00 | VDLE_ITS ---
Reason For Study: DVT RIGHT LEFT CFV is compressible, spontaneous, phasic, GSV is normal. competent and demonstrates normal CFV is compressible, spontaneous, phasic, augmentation. competent, and demonstrates normal Procedure augmentation. This is a venous duplex using B-mode, color FV is compressible, spontaneous, phasic, flow and spectral Doppler. competent and demonstrates normal Exam performed in department. augmentation. The exam was diagnostic. POP V is compressible, spontaneous, phasic, A preliminary report was called and/or faxed competent and demonstrates normal to Dr. Christina. augmentation. T/P Trunk is compressible. PTV is compressible. LT PerV is compressible. Soleus V is compressible. VL/Venous Duplex US, Unilateral Interpretation Summary Deep veins of the left lower extremity are patent and compressible segmentally. There is no evidence of left lower extremity deep vein thrombosis. Valvular competence appears intac t within the proximal deep venous system on the left . The left great saphenous vein appears patent a nd compressible segmentally. There has been resolution of the acute deep vein thrombosis noted on prior studies. Ordering Physician: Vanessa Christina Performed By: Keenan Lincoln RVT
== END 2021-09-27 23:59 | disposition home or self-care (01) ==
LOC: CVS 09:59
PROVIDERS: PCP Internal Medicine; Referring Provider Internal Medicine; Visit Provider Internal Medicine
DX: I82.403 Acute embolism and thrombosis of unspecified deep veins of lower extremity, bilateral (principal); M79.89 Other specified soft tissue disorders
CPT/HCPCS: 93971

== ENCOUNTER → 2021-10-11 | Outpatient (CLI) | payer MEDICARE, SELFPAY ==
[2021-10-11 09:55] LABS: Absolute Lymphocyte Count 1.02 X10^3/uL (0.83-4.51); Basophil# 0.06 X10^3/uL; Eosinophil# 0.08 X10^3/uL; Eosinophils% 1.4 % (0-5); Hematocrit 38.5 % (40-54); Hemoglobin 12.6 g/dL (13.0-16.5); Lymphocyte # 1.02 X10^3/ul (0.83-4.51); Lymphocyte % 17.7 % (19-41); Mean Corp Hgb Conc 32.7 g/dL (32-36); Mean Corpuscular Hgb 30.1 pg (27.0-32.0); Mean Corpuscular Volume 91.9 fL (80-94); Mean Platelet Vol. 10.2 fl (6.2-12.0); Monocyte# 0.63 X10^3/uL; Monocyte% 10.9 % (0-10); NRBC Flagged by Analyzer 0 % (0-5); Neutrophil # 3.95 X10^3/uL (2.7-7.7); Neutrophil % 68.7 % (47-70); Platelet Count 211 K/mm3 (150-450); RBC Distribution Width CV 14.8 % (11.6-14.6); RBC Distribution Width SD 49.4 fl (35.1-43.9); Red Blood Count 4.19 M/mm3 (4.6-6.2); White Blood Count 5.8 K/mm3 (4.4-11.0)
[2021-10-11 10:19] LABS: ALB/GLOB Ratio 1.1 RATIO (0.9-2.4); AST(SGOT) 24 U/L (15-37); Alanine Aminotransfer ALT/SGPT 39 U/L (16-61); Albumin, Serum 3.4 g/dL (3.2-5.0); Alkaline Phosphatase 84 U/L (45-117); Anion Gap 4 (5-15); BUN 16 mg/dL (7-18); BUN/Creat Ratio 20.2 RATIO (10-20); Calcium,Total 8.3 mg/dL (8.5-10.1); Chloride 110 mmol/L (98-107); Creatinine, Serum 0.79 mg/dL (0.70-1.30); EST Glomerular Filtration Rate 101 mL/min (>60); Est Glom Filt Rate - Afr Amer 122 mL/min (>60); Glucose 97 mg/dL (74-106); Potassium 4.1 mmol/L (3.5-5.1); Protein, Total 6.4 g/dL (6.4-8.2); Sodium Level 142 mmol/L (136-145)
== END | disposition home or self-care (01) ==
LOC: MTLAB 07:52
PROVIDERS: PCP Internal Medicine; Referring Provider Internal Medicine Rheumatology; Visit Provider Internal Medicine Rheumatology
DX: M05.79 Rheumatoid arthritis with rheumatoid factor of multiple sites without organ or systems involvement (principal); J44.9 Chronic obstructive pulmonary disease, unspecified; I42.9 Cardiomyopathy, unspecified; E11.9 Type 2 diabetes mellitus without complications; M17.0 Bilateral primary osteoarthritis of knee; E78.5 Hyperlipidemia, unspecified; G62.89 Other specified polyneuropathies; Z79.899 Other long term (current) drug therapy
CPT/HCPCS: 36415; 80053; 85025

== ENCOUNTER → 2021-11-04 | Outpatient (CLI) | payer MEDICARE, SELFPAY ==
--- NOTE | 2021-11-04 14:07 | RAD_ITS ---
STUDY: X-RAY CHEST REASON FOR EXAM: Male, 76 years old. COUGH TECHNIQUE: 2 views COMPARISON: 08/26/2021 FINDINGS: Cardiomediastinal silhouette is unremarkable. Costophrenic angles are sharp. Lungs are hyperinflated but clear. The trachea is midline. There is no pneumothorax. Bones are osteopenic. Multilevel thoracic spondylosis is noted. RAD/Chest PA and Lateral IMPRESSION: COPD. No acute cardiopulmonary process. Electronically Signed: Brian Chambers MD at 15:00 EDT ,
== END | disposition home or self-care (01) ==
LOC: MTRAD 14:05
PROVIDERS: PCP Internal Medicine; Referring Provider Internal Medicine; Visit Provider Internal Medicine
DX: R05.9 Cough, unspecified (principal)
CPT/HCPCS: 71046

== ENCOUNTER → 2021-11-22 | Outpatient (CLI) | payer MEDICARE, SELFPAY ==
--- NOTE | 2021-11-22 10:25 | RAD_ITS ---
STUDY: X-RAY CHEST REASON FOR EXAM: Male, 76 years old. COUGH TECHNIQUE: PA and lateral views of the chest. COMPARISON: Comparison is made with prior study 11/04/2021. FINDINGS: There is hyperinflation of the lungs consistent with chronic obstructive lung disease (COPD). There is no demonstrated pleural abnormality. Normal size heart. Normal mediastinum and latonya. Normal visualized pulmonary arteries. There is atherosclerotic calcification of the aortic arch with tortuosity. There are diffuse degenerative changes of the visualized thoracic spine. Normal visualized ribs, clavicles, and shoulders. There is no demonstrated abnormality of the visualized soft tissue structures of the upper abdomen. RAD/Chest PA and Lateral IMPRESSION: Hyperinflation. The lungs are clear. Electronically Signed: Seth Riggs MD at 10:52 EDT ,
== END | disposition home or self-care (01) ==
LOC: MTRAD 10:21
PROVIDERS: PCP Internal Medicine; Referring Provider Internal Medicine; Visit Provider Internal Medicine
DX: R05.9 Cough, unspecified (principal)
CPT/HCPCS: 71046

== ENCOUNTER → 2021-12-12 | Outpatient (CLI) | payer MEDICARE, SELFPAY ==
--- NOTE | 2021-12-12 15:45 | VDLE_ITS ---
Reason For Study: Pain RIGHT GSV is normal. CFV is compressible, spontaneous, phasic, competent and demonstrates normal augmentation. FV is compressible, spontaneous, phasic, competent and demonstrates normal augmentation. POP V is compressible, spontaneous, phasic, competent and demonstrates normal augmentation. T/P Trunk is compressible. PTV is compressible. RT PerV is compressible. Procedure This is a venous duplex using B-mode, color flow and spectral Doppler. Exam performed in department. A preliminary report was called and/or faxed to [facility]. VL/Venous Duplex US, Unilateral Interpretation Summary Deep veins of the right lower extremity are patent and compressible segmentally . There is no evidence of right lower extremity deep vein thrombosis. Valvular competence luiz ears intact within the proximal deep venous system on the right . The right great saphenous vein a ppears patent and compressible segmentally. Ordering Physician: Vanessa Christina Referring Physician: Vanessa Christina Performed By: Kaila Cesar RVT
== END | disposition home or self-care (01) ==
LOC: CVS 15:43
PROVIDERS: PCP Internal Medicine; Referring Provider Internal Medicine; Visit Provider Internal Medicine
DX: M79.604 Pain in right leg (principal)
CPT/HCPCS: 93971

== ENCOUNTER → 2022-01-03 | Outpatient (CLI) | payer MEDICARE, SELFPAY ==
[2022-01-03 13:11] LABS: Absolute Lymphocyte Count 0.71 X10^3/uL (0.83-4.51); Absolute Neutrophil Count 6.3 X10^3/uL (2.0-7.7); Basophil# 0.03 X10^3/uL; Basophil% 0.4 % (0-1); Eosinophil# 0.02 X10^3/uL; Eosinophils% 0.3 % (0-5); Hematocrit 42.3 % (40-54); Hemoglobin 13.3 g/dL (13.0-16.5); Lymphocyte # 0.71 X10^3/ul (0.83-4.51); Lymphocyte % 9.7 % (19-41); Mean Corp Hgb Conc 31.4 g/dL (32-36); Mean Corpuscular Hgb 28.5 pg (27.0-32.0); Mean Corpuscular Volume 90.8 fL (80-94); Mean Platelet Vol. 9.7 fl (6.2-12.0); Monocyte# 0.26 X10^3/uL; Monocyte% 3.5 % (0-10); NRBC Flagged by Analyzer 0 % (0-5); Neutrophil # 6.31 X10^3/uL (2.7-7.7); Neutrophil % 85.8 % (47-70); Platelet Count 223 K/mm3 (150-450); RBC Distribution Width SD 46.8 fl (35.1-43.9); Red Blood Count 4.66 M/mm3 (4.6-6.2); White Blood Count 7.4 K/mm3 (4.4-11.0)
[2022-01-03 13:42] LABS: ALB/GLOB Ratio 0.8 RATIO (0.9-2.4); AST(SGOT) 17 U/L (15-37); Alanine Aminotransfer ALT/SGPT 28 U/L (16-61); Albumin, Serum 3.2 g/dL (3.2-5.0); Alkaline Phosphatase 86 U/L (45-117); Anion Gap 6 (5-15); BUN 16 mg/dL (7-18); BUN/Creat Ratio 20.1 RATIO (10-20); Chloride 107 mmol/L (98-107); EST Glomerular Filtration Rate 100 mL/min (>60); Est Glom Filt Rate - Afr Amer 121 mL/min (>60); Globulin 3.8 g/dL (2.2-4.2); Glucose 185 mg/dL (74-106); Potassium 4.1 mmol/L (3.5-5.1); Sodium Level 138 mmol/L (136-145)
== END | disposition home or self-care (01) ==
PROVIDERS: PCP Internal Medicine; Referring Provider Internal Medicine Rheumatology; Visit Provider Internal Medicine Rheumatology
DX: M05.79 Rheumatoid arthritis with rheumatoid factor of multiple sites without organ or systems involvement (principal); J44.9 Chronic obstructive pulmonary disease, unspecified; I42.9 Cardiomyopathy, unspecified; E11.9 Type 2 diabetes mellitus without complications; M17.0 Bilateral primary osteoarthritis of knee; E78.5 Hyperlipidemia, unspecified; Z79.899 Other long term (current) drug therapy
CPT/HCPCS: 36415; 80053; 85025

== ENCOUNTER → 2022-03-10 | Outpatient (CLI) | payer MEDICARE, SELFPAY ==
[2022-03-15 11:08] LABS: QNTFERON TB Mitogen Value > 10.00 IU/mL (.); QNTFERON TB Nil Value 0.06 IU/mL (.); QNTFERON TB1+ Ag Value 0.05 IU/mL (.); QNTFERON TB2+ Ag Value 0.05 IU/mL (.)
[2022-03-15 13:02] LABS: QNTIFERON TB Positive Criteria Negative (Negative)
== END | disposition home or self-care (01) ==
LOC: MTLAB 10:45
PROVIDERS: PCP Internal Medicine; Referring Provider Internal Medicine Rheumatology; Visit Provider Internal Medicine Rheumatology
DX: M05.79 Rheumatoid arthritis with rheumatoid factor of multiple sites without organ or systems involvement (principal); J44.9 Chronic obstructive pulmonary disease, unspecified; I42.9 Cardiomyopathy, unspecified; E11.9 Type 2 diabetes mellitus without complications; M17.0 Bilateral primary osteoarthritis of knee; E78.5 Hyperlipidemia, unspecified; G62.89 Other specified polyneuropathies; Z79.899 Other long term (current) drug therapy
CPT/HCPCS: 36415; 86480

== ENCOUNTER → 2022-05-16 | Outpatient (CLI) | payer MEDICARE, SELFPAY ==
[2022-05-16 12:07] LABS: Absolute Lymphocyte Count 1.32 X10^3/uL (0.83-4.51); Absolute Neutrophil Count 3.8 X10^3/uL (2.0-7.7); Basophil# 0.05 X10^3/uL; Basophil% 0.9 % (0-1); Eosinophil# 0.08 X10^3/uL; Eosinophils% 1.4 % (0-5); Hematocrit 43.7 % (40-54); Hemoglobin 13.8 g/dL (13.0-16.5); Lymphocyte # 1.32 X10^3/ul (0.83-4.51); Lymphocyte % 22.6 % (19-41); Mean Corp Hgb Conc 31.6 g/dL (32-36); Mean Corpuscular Hgb 28.2 pg (27.0-32.0); Mean Corpuscular Volume 89.2 fL (80-94); Mean Platelet Vol. 10.5 fl (6.2-12.0); Monocyte# 0.61 X10^3/uL; Monocyte% 10.4 % (0-10); NRBC Flagged by Analyzer 0 % (0-5); Neutrophil # 3.76 X10^3/uL (2.7-7.7); Neutrophil % 64.2 % (47-70); Platelet Count 183 K/mm3 (150-450); RBC Distribution Width CV 16.5 % (11.6-14.6); RBC Distribution Width SD 52.3 fl (35.1-43.9); White Blood Count 5.9 K/mm3 (4.4-11.0)
[2022-05-16 12:26] LABS: ALB/GLOB Ratio 1.1 RATIO (0.9-2.4); AST(SGOT) 21 U/L (15-37); Alanine Aminotransfer ALT/SGPT 32 U/L (16-61); Albumin, Serum 3.6 g/dL (3.2-5.0); Alkaline Phosphatase 83 U/L (45-117); Anion Gap 3 (5-15); BUN 10 mg/dL (7-18); BUN/Creat Ratio 14.5 RATIO (10-20); Calcium,Total 9.1 mg/dL (8.5-10.1); Chloride 111 mmol/L (98-107); Creatinine, Serum 0.69 mg/dL (0.70-1.30); EST Glomerular Filtration Rate 117 mL/min (>60); Est Glom Filt Rate - Afr Amer 142 mL/min (>60); Globulin 3.4 g/dL (2.2-4.2); Glucose 106 mg/dL (74-106); Potassium 4.1 mmol/L (3.5-5.1); Sodium Level 142 mmol/L (136-145)
== END | disposition home or self-care (01) ==
LOC: MTLAB 11:12
PROVIDERS: PCP Internal Medicine; Referring Provider Internal Medicine Rheumatology; Visit Provider Internal Medicine Rheumatology
DX: M05.79 Rheumatoid arthritis with rheumatoid factor of multiple sites without organ or systems involvement (principal); Z79.899 Other long term (current) drug therapy
CPT/HCPCS: 36415; 80053; 85025

== ENCOUNTER → 2022-05-24 | Outpatient (CLI) | payer MEDICARE, SELFPAY ==
--- NOTE | 2022-05-24 14:00 | CDU_ITS ---
Reason For Study: Stenosis Rt. Velocities/BP Lt. Velocities/BP Prox CCA 70.2/13.5 cm/sec. Prox CCA 96.1/16.3 cm/sec. Mid CCA 79.6/14.5 cm/sec. Mid CCA 80.2/20.0 cm/sec. Dist CCA 73.0/14.5 cm/sec. Dist CCA 67.9/17.6 cm/sec. Prox ICA 104.7/24.3 cm/sec. Prox ICA 45.0/13.8 cm/sec. Mid ICA 95.5/20.6 cm/sec. Mid ICA 68.8/21.5 cm/sec. Dist ICA 84.0/24.7 cm/sec. Dist ICA 78.7/20.4 cm/sec. Rt. ICA/CCA = 1.3. Lt. ICA/CCA = 1.0. Prox ECA 112.4/22.3 cm/sec. Prox ECA 69.5/8.1 cm/sec. Rt. Vert. 35.5/7.0 cm/sec. Lt. Vert. 48.1/14.7 cm/sec. Right Extracranial There is heterogeneous, irregular atherosclerotic plaque noted in the right common carotid artery. There is heterogeneous, irregular atherosclerotic plaque noted in the right internal carotid artery. There is intimal thickening but no significant atherosclerotic plaque noted in the right external carotid artery. Antegrade flow is noted in the right vertebral artery. Left Extracranial There is intimal thickening but no significant atherosclerotic plaque noted in the left common carotid artery. There is heterogeneous, irregular atherosclerotic plaque noted in the left internal carotid artery. There is heterogeneous, irregular atherosclerotic plaque noted in the left external carotid artery. Antegrade flow is noted in the left vertebral artery. Procedure Carotid Duplex [id number]. This is a Carotid Duplex examination using B-mode, color flow and specral Doppler. The exam was diagnostic. Exam performed in department. VL/Carotid Duplex Ultrasound Interpretation Summary Mild (<50%) stenosis right extracranial internal carotid. Mild (<50%) stenosis left extracranial internal carotid. Flow within the vertebral arteries is antegrade bilaterally. Ordering Physician: Vanessa Christina Referring Physician: Vanessa Christina Performed By: Booker Baxter RVT
== END | disposition home or self-care (01) ==
LOC: CVS 13:59
PROVIDERS: PCP Internal Medicine; Referring Provider Internal Medicine; Visit Provider Internal Medicine
DX: I65.23 Occlusion and stenosis of bilateral carotid arteries (principal)
CPT/HCPCS: 93880

== ENCOUNTER 2022-07-23 00:29 | Inpatient (IN) | payer MEDICARE, SELFPAY ==
[2022-07-23] VITALS (12 sets, daily range): BP systolic 101–114; BP diastolic 48–63; PULSE 70–81; RESP 18–20; TEMP 36.8–37.1; O2SAT 79–99; BMI 26.9
--- NOTE | 2022-07-23 04:53 | HP.PCM.HOS_ITS ---
HPI - General General Date of Admission: 07/23/22 Date of Service: 07/23/22 Chief Complaint: Dyspnea, cough, weakness, debility. 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 He denies any recent ill contacts initially however upon further discussion he does have a friend that he sees frequently and this person has also been ill. In the ED they did attempt an ambulatory trial and he was unable to safely perform this and lives alone. Upon arrival to [facility] on 07/23/22 patient reports having severe RLS secondary to missing several of his medications. He is also unsure of his last dose of his MTX. Outside ED evaluation work-up included: VS: T 37.7, HR 92, RR 17, 128/72, 94% on RA EKG: SR without acute evidence of ischemia Medications given: 1L NS, azithromycin, rocephin. Work-up the outside facility ED included CBC with WBC 7.8, hemoglobin 13.4, platelet 150 with left shift, BMP with sodium 134, potassium 3.3, BUN/creatinine 16/0.91 otherwise not marked appearing, chest x-ray with right infrahilar infiltrate, chest x-ray with no acute intracranial abnormality with evidence of acute on chronic sinusitis. [facility] Medical History (Updated 07/23/22 @ 04:[address] 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 Anxiety and depression Carotid disease, bilateral Chronic anemia COPD (chronic obstructive pulmonary disease) Dilated cardiomyopathy Essential hypertension History of venous thromboembolism Hyperlipidemia Hypertension Rheumatoid arthritis Supraventricular tachycardia, paroxysmal Tobacco use Type 2 diabetes mellitus Home Medications simvastatin 40 mg tablet 40 mg PO QHS 09/14/15 [History Last Taken 09/05/16] leucovorin calcium 5 mg tablet 5 mg PO WE 08/25/16 [History Last Taken 09/06/16] clonazepam 0.5 mg tablet 0.5 mg PO QHS 08/27/16 [Rx Last Taken 07/20/22 22:00] gabapentin 300 mg capsule 900 mg PO TIDCM restless legs 08/29/18 [History Last Taken 07/22/22 23:17] multivitamin 1 tab PO DAILY 11/04/18 [History Last Taken Unknown] rotigotine 3 mg/24 hour transdermal 24 hour patch (Neupro) 1 patch transdermal DAILY 11/04/18 [History Last Taken Unknown] tramadol 50 mg tablet 50 mg PO BID PRN Pain 11/04/18 [History Last Taken 07/20/22 22:00] upadacitinib 15 mg tablet,extended release 24 hr (Rinvoq) 15 mg PO DAILY 05/12/19 [History Last Taken Unknown] ygflcrd-cqofmegqgppxd-bckhwvns 250 mg-250 mg-65 mg tablet (Excedrin Extra Strength) 1 tab PO Q6H PRN 01/21/20 [History Last Taken Unknown] melatonin 10 mg tablet 10 mg PO HS PRN 01/21/20 [History Last Taken Unknown] bupropion HCl 150 mg tablet,12 hr sustained-release 150 mg PO BID 07/15/20 [History Last Taken Unknown] cholecalciferol (vitamin D3) 125 mcg (5,000 unit) tablet 125 mcg PO DAILY 07/15/20 [History Last Taken Unknown] folic acid 800 mcg tablet 0.8 mg PO DAILY 07/15/20 [History Last Taken Unknown] methotrexate sodium 2.5 mg tablet 20 mg PO QWEEK RA 07/15/20 [History Last Taken 07/20/22] nicotine 14 mg/24 hr daily transdermal patch 1 patch transdermal DAILY 07/15/20 [History Last Taken Unknown] trazodone 50 mg tablet 50 mg PO QHS PRN sleep 07/15/20 [History Last Taken Unknown] apixaban 5 mg tablet (Eliquis) 5 mg PO DAILY Check with primary doctor 07/23/22 [History Last Taken 07/19/22 22:00] rotigotine 4 mg/24 hour transdermal 24 hour patch (Neupro) 4 mg transdermal DAILY restless legs 07/23/22 [History Last Taken 07/20/22 10:00] Allergy/AdvReac Type Severity Reaction Status Date / Time No Known Allergies Allergy Verified 07/15/20 10:06 Family History Father CAD (coronary artery disease) cabg CVA (cerebral vascular accident) Mother Breast cancer Surgical History History of appendectomy History of discectomy History of hand surgery History of hernia repair History of shoulder surgery History of surgery on wrist History of tonsillectomy Social History Smoking Status: Current every day smoker alcohol intake: current alcohol intake frequency: 0-2 drinks per day substance use type: does not use caffeine: Yes Type: coffee Number of servings: 2 what type of physical activity do you participate in: none seatbelt use: always do you feel safe at home: Yes ROS ROS Narrative Admission Review of Systems: CONSTITUTIONAL: No weight loss, fever, chills, + weakness or fatigue. HEENT: Eyes: No visual loss, blurred vision, double vision or yellow sclerae. Ears, Nose, Throat: No hearing loss, sneezing, congestion, runny nose or sore throat. SKIN: + Very staged ecchymoses, bilateral lower extremity mild stasis disease skin changes, right plantar foot with a noninfected appearing wound with significant callus. CARDIOVASCULAR: No chest pain, chest pressure or chest discomfort, palpitations, edema, orthopnea, syncopal events. RESPIRATORY: + shortness of breath, cough with mildly productive sputum, No wheezing, hemoptysis. GASTROINTESTINAL: + anorexia, No nausea, vomiting or diarrhea, abdominal pain, melena, BRBPR. GENITOURINARY: No dysuria, frequency, urgency or retention. NEUROLOGICAL: + Severe generalized weakness secondary to acute illness compounded by underlying severe RA. No headache, dizziness, syncope, paralysis, ataxia, numbness or tingling in the extremities, focal weakness, change in bowel or bladder control, seizure. MUSCULOSKELETAL: + muscle, back pain, joint pain or stiffness, extremity changes with underlying rheumatoid arthritis. HEMATOLOGIC: + anemia, bleeding or bruising. LYMPHATICS: No enlarged nodes. No history of splenectomy. PSYCHIATRIC: + history of depression or anxiety. ENDOCRINOLOGIC: No reports of sweating, cold or heat intolerance. No polyuria or polydipsia. ALLERGIES: No history of asthma, hives, eczema or rhinitis. Physical Exam Narrative Physical Examination: General: Awake, alert, oriented x 3 and cooperative, laying in the medical surgical bed, fatigued, significant issues currently with restless leg as patient missed several doses of the medications. Skin: Normal color, normal turgor, no icterus, no cyanosis except for bilateral lower extremity stasis skin changes, occasional staged ecchymoses, right plantar foot noninfected small wound surrounded by thick callus. HEENT: AT/NC, EOMI, PERRLA, dry MM, no carotid bruits or JVD noted. Lungs: Diminished, greater right, more pronounced bases, no evidence of any distress, mildly rhonchorous, no obvious wheezing or rales, mild upper airway referred sounds. Heart: Currently regular rate and rhythm; no gallop, rub audible. Abdomen: Soft, NTTP, ND, distant normal BS, no obvious evidence of HSM. Extremities: No cyanosis, no clubbing, mild bilateral ankle to distal kwon edema, nonpitting, extremity hand and foot joint changes with underlying severe rheumatoid arthritis. Neurological: Patient awake, alert, oriented as noted, cognitive function intact; pupils equally reactive to light and accommodation, cranial nerves II- XII grossly normal, moving all 4 extremities, no focal deficits, strength severely limited secondary to acute presentation as well as underlying coronary disease and currently uncontrolled restless leg. Psychiatric: Affect appears uncomfortable, notable restless leg syndrome is currently in place, no acute evidence of depressive or anxiety feelings but does have underlying history. Assessment & Plan Assessment/Plan (1) Pneumonia: PLAN: Plan The patient is a 77 y/o M w/ PMHx: BL Carotid stenosis, Dilated Cardiomyopathy, Hx VTE w/ anticardiolipin antibody syndrome and Antithrombin III deficiency on c hronic Eliquis therapy, Chronic anemia, COPD, Tobacco use, Diabetes mellitus type II, GERD, Rheumatoid arthritis, Anxiety and Depression who initialled presented to the [facility] ED on 07/22/22 with history of 2 to 3 days of increasing fatigue malaise with severe weakness and ongoing mildly productive cough with dyspnea, worse with exertion. #1. Adult FTT secondary to Acute Community Acquired Pneumonia: Will admit to MS, currently maintained on room air however if necessary and oxygen applied will wean to room air as tolerated, PRN albuterol, maintained on IV Rocephin and Azithromycin, HOB, IS parameters w/ pending sputum cultures full respiratory viral panel and urine antigens, will maintain on fall and aspiration precautions. Given severe debility and inability to care for himself secondary to his acute illness and underlying age with comorbidities will request PT/OT and case management involvement as likely will need placement temporarily at least. #2. Hypokalemia: Admission K+ 3.3 at outside facility, supplementation will be administered here, magnesium level requested, repeat level in AM. #3. Rheumatoid arthritis: Patient previously on revoke but transition to Simponi, clarifying if he is still on methotrexate and folic acid supplementation. #4. Dilated cardiomyopathy: Following with Dr. Banuelos, last visit 07/15/2020, no congestive heart failure symptoms at that time, unable to tolerate rate. Medications or MICHEAL inhibitor secondary to side effects with ongoing periodic echocardiograms. 11/21/2018 echocardiogram with normal LV systolic function, EF 60%, mild to moderate MVI, mild TVI, aortic sclerosis with no stenosis, mild SIGRID, trivial TVI, RVSP 23 mmHg with no evidence of diastolic dysfunction. #5. Diabetes mellitus type II: Last HgbA1c noted 08/12/21 5.7%, not on any medications, glucose normal at OSH, will continue ADA diet and given acute presentation will maintian on accu checks w/ ISS. #6. Chronic normocytic anemia: Outside facility hemoglobin 13.4, baseline prior similar, from most recent was not on iron supplementation, clarifying if remains on folic acid supplementation. #7. Tobacco Abuse: Encouraged cessation, inpatient consultation per RT, NR if desired. #8. Hyperlipidemia: We will continue patient on statin therapy. #9. Hx VTE: Patient w/ anticardiolipin antibody syndrome and Antithrombin III deficiency on chronic Eliquis therapy, will continue regimen. #10. Anxiety and depression: We will continue patient home escitalopram, bupropion, trazodone and clonazepam regimen. #11. Carotid disease: Patient with bilateral carotid disease, will continue statin, Eliquis, from most current list does not appear to be on a hypertensive regimen, BP normal range at outside facility, last hemoglobin A1c as noted above, continue to monitor. #12. Severe restless leg syndrome: We will continue patient home Neupro patch and gabapentin. #13. GERD: We will continue patient on PPI. #14. DVT prophylaxis: SCDs, continue patient on Eliquis regimen. #15. CODE status: Patient FACUNDO is the patient's nephew and living will is currently in place although patient does admit that he is never talked about his specific wishes as far as CODE STATUS with his nephew. We discussed that is very important that he have conversations and honestly relay his current wishes which she describes to his nephew. Discussed CODE status at length including difference between FULL code, DNR-CCA and DNR-CC status. Following discussions about the differences in these status, requested DNR-CCA, no intubation status, no aggressive interventions/procedures. Advanced Care Planning Face to Face Time: 16 minutes. Admission Evaluation Time spent evaluating chart, patient history, patient evaluation, care planning and discussion with specialists: 60 minutes. Charges/Coding Visit Charges Inpatient E&M: 02480 Init Hosp L2 Procedures Hospitalists Procedures: 25552 Advncd Care Plan 30 Min
[2022-07-23] MEDS: 0.9% Normal Saline 1,000 ML 100 ML IV (05:28)
[2022-07-23] MEDS: Potassium Chloride Oral Tablet 20 MEQ 40 MEQ PO (05:45)
[2022-07-23 07:15] LABS: Bedside Glucose 56 mg/dL (74-106)
[2022-07-23 07:55] LABS: Bedside Glucose 99 mg/dL (74-106)
[2022-07-23 08:33] LABS: ALB/GLOB Ratio 0.7 RATIO (0.9-2.4); AST(SGOT) 42 U/L (15-37); Alanine Aminotransfer ALT/SGPT 21 U/L (16-61); Albumin, Serum 2.4 g/dL (3.2-5.0); Alkaline Phosphatase 57 U/L (45-117); Anion Gap 9 (5-15); BUN 13 mg/dL (7-18); BUN/Creat Ratio 17.6 RATIO (10-20); Calcium,Total 8.3 mg/dL (8.5-10.1); Chloride 108 mmol/L (98-107); Creatinine, Serum 0.74 mg/dL (0.70-1.30); EST Glomerular Filtration Rate 109 mL/min (>60); Est Glom Filt Rate - Afr Amer 132 mL/min (>60); Estimated Creatinine Clearance 54.94 ml/min; Globulin 3.5 g/dL (2.2-4.2); Glucose 119 mg/dL (74-106); Potassium 3.5 mmol/L (3.5-5.1); Protein, Total 5.9 g/dL (6.4-8.2); Sodium Level 141 mmol/L (136-145)
[2022-07-23 08:38] LABS: Absolute Lymphocyte Count 0.78 X10^3/uL (0.83-4.51); Absolute Neutrophil Count 6.7 X10^3/uL (2.0-7.7); Basophil# 0.02 X10^3/uL; Basophil% 0.2 % (0-1); Eosinophil# 0.01 X10^3/uL; Eosinophils% 0.1 % (0-5); Hematocrit 36.8 % (40-54); Hemoglobin 12.4 g/dL (13.0-16.5); Lymphocyte # 0.78 X10^3/ul (0.83-4.51); Lymphocyte % 9.7 % (19-41); Mean Corp Hgb Conc 33.7 g/dL (32-36); Mean Corpuscular Hgb 28.6 pg (27.0-32.0); Mean Corpuscular Volume 84.8 fL (80-94); Mean Platelet Vol. 9.6 fl (6.2-12.0); Monocyte# 0.51 X10^3/uL; Monocyte% 6.4 % (0-10); NRBC Flagged by Analyzer 0 % (0-5); Neutrophil # 6.67 X10^3/uL (2.7-7.7); Neutrophil % 83.2 % (47-70); Platelet Count 144 K/mm3 (150-450); RBC Distribution Width CV 14.4 % (11.6-14.6); RBC Distribution Width SD 44.2 fl (35.1-43.9); Red Blood Count 4.34 M/mm3 (4.6-6.2)
[2022-07-23 08:39] LABS: Hemoglobin A1c 5.7 % (3.8-5.6)
--- NOTE | 2022-07-23 09:07 | PCM.HOSP.N ---
Hospitalist Note Patient is a 77-year-old gentleman with multiple comorbidities admitted with progressive generalized weakness diagnosed with community-acquired pneumonia admitted to regular nursing floor for further management Patient has been seen and examined. Initial assessment including history and physical diagnostic data as well as management orders reviewed will follow.
[2022-07-23] MEDS: Multivitamins,Therapeutic Tablet 1 TABLET PO (09:24)
[2022-07-23] MEDS: APIXABAN 5 MG TABLET PO (09:25)
[2022-07-23] MEDS: Folic Acid 1 MG Tablet PO (09:25)
[2022-07-23] MEDS: Gabapentin 300 MG Capsule 900 MG PO ×3 (09:29→17:54)
[2022-07-23] MEDS: guaiFENesin 10 ML UDC (200MG/10ML) 20 ML PO ×2 (09:32→22:00)
[2022-07-23] MEDS: Acetaminophen 325 MG Tablet 650 MG PO ×2 (09:32→22:00)
[2022-07-23] MEDS: Glucerna Shake 120 ML LIQUID PO ×4 (11:25→21:32)
[2022-07-23 11:50] LABS: Bedside Glucose 149 mg/dL (74-106)
[2022-07-23] MEDS: Mag Hydrox/Al Hydrox/Simeth 30 ML UDC PO (16:56)
[2022-07-23 17:31] LABS: Bedside Glucose 101 mg/dL (74-106)
[2022-07-23] MEDS: Ceftriaxone 1 GM/50 ML BAG IV (20:24)
[2022-07-23] MEDS: clonazePAM 0.5 MG Tablet PO (21:37)
[2022-07-23] MEDS: Atorvastatin Calcium 20 MG Tablet PO ×2 (21:38)
--- NOTE | 2022-07-23 21:56 | NURSING ---
azithromycin would not scan, verified w/roseanne lomax lpn
[2022-07-23 22:01] LABS: Bedside Glucose 90 mg/dL (74-106)
[2022-07-23] MEDS: MELATONIN 3 MG TABLET PO (22:06)
[2022-07-24] VITALS (15 sets, daily range): BP systolic 86–134; BP diastolic 43–86; PULSE 62–76; RESP 18–24; TEMP 36.4–36.9; O2SAT 77–97
[2022-07-24 06:50] LABS: Bedside Glucose 74 mg/dL (74-106)
--- NOTE | 2022-07-24 07:08 | PCM.PN.HOSP ---
Subjective Subjective f/u gen weakness, CAP Ports still shortness of breath and is coughing, has had occasional streaks of blood with his excessive coughing. Continues to have problems with his restless legs but in part says difficult with timing of medication while in the hospital. Is still kind somewhat generally weak Objective Data Objective Data Vital Signs: Vital Signs Temp Pulse Resp BP Pulse Ox O2 Del Method O2 Flow Rate 98.2 F 67 18 91/43 L 96 Nasal Cannula 3 07/24/22 05:43 07/24/22 05:43 07/24/22 05:43 07/24/22 05:43 07/24/22 05:43 07/24/22 05:43 07/24/22 05:43 Oxygen Flow Rate (L/min) [ 2 AMBULATING with Oxygen #1] Oxygen Flow Rate (L/min) 3 Oxygen Delivery Method Nasal Cannula Weight: 77.8 kg Body Mass Index (BMI) 26.9 Intake & Output: Intake and Output for Last 24 Hours 07/22/22 07/23/22 07/24/22 23:59 23:59 23:59 Intake Total 1553.33 / 1808.33 255 / 255 Output Total 400 / 400 Balance 1153.33 / 1408.33 255 / 255 Lab / Micro Data Result Diagrams: 07/23/22 08:05 07/23/22 08:05 Labs: Laboratory Results - last 24 hr 07/23/22 06:45: POC Glucose 56 L 07/23/22 07:36: POC Glucose 99 07/23/22 08:05: Magnesium 2.0 07/23/22 08:05: WBC 8.0, RBC 4.34 L, Hgb 12.4 L, Hct 36.8 L, MCV 84.8, MCH 28.6, MCHC 33.7, RDW Std Deviation 44.2 H, RDW Coeff of Jairo 14.4, Plt Count 144 L, MPV 9.6, Immature Gran % (Auto) 0.400, Neut % (Auto) 83.2 H, Lymph % (Auto) 9.7 L, Guthrie % (Auto) 6.4, Eos % (Auto) 0.1, Baso % (Auto) 0.2, Absolute Neuts (auto) 6.7, Absolute Lymphs (auto) 0.78 L, Nucleated RBC % 0 07/23/22 08:05: Sodium 141, Potassium 3.5, Chloride 108 H, Carbon Dioxide 24.0, Anion Gap 9, BUN 13, Creatinine 0.74, Estim Creat Clear Calc 54.94, Est GFR (MDRD) Af Amer 132, Est GFR (MDRD) Non-Af 109, BUN/Creatinine Ratio 17.6, Glucose 119 H, Calcium 8.3 L, Total Bilirubin 1.70 H, AST 42 H, ALT 21, Alkaline Phosphatase 57, Total Protein 5.9 L, Albumin 2.4 L, Globulin 3.5, Albumin/Globulin Ratio 0.7 L 07/23/22 08:05: Hemoglobin A1c 5.7 H 07/23/22 11:28: POC Glucose 149 H 07/23/22 17:01: POC Glucose 101 07/23/22 21:30: POC Glucose 90 07/24/22 06:27: POC Glucose 74 Physical Exam Const alert and no apparent distress Constitutional Narrative: Oriented HEENT normocephalic and head/scalp atraumatic Eyes Eyes Narrative: EOM grossly intact, anicteric Neck supple Resp normal respiratory effort and clear to auscultation bilaterally Cardio regular rate and regular rhythm GI soft to palpation, non-tender and non-distended Extremity Extremity Narrative: No edema appreciated, spontaneous movements of the legs Neuro moves all extremities Neuro Narrative: No overt focal deficits appreciated Psych Psych Narrative: Cooperative Assessment & Plan Assessment/Plan (1) Pneumonia: PLAN: Plan 69 male history of bilateral carotic stenosis, dilated cardiomyopathy, history of VTE with anticardiolipin antibody syndrome on Eliquis, COPD, DMII, GERD, RA here for dyspnea, cough, weakness, debility for 2 to 3 days #CAP in the setting of history of COPD Rocephin and azithromycin Presently on 3 L of O2 with O2 sats in the low 90s As needed albuterol I/S #Generalized weakness PT/OT #RA Leucovorin Methotrexate #History of VTE into anticardiolipin antibody syndrome On Eliquis chronically #Type 2 diabetes mellitus Last A1c 08/12 of 5.7% Not on any medications, question this diagnosis but maintained on Accu-Cheks #RLS Continue Neupro patch and gabapentin Will check iron levels for a.m. as this may be contributing #DVT prophylaxis: Eliquis And time spent in the patient's overall evaluation,decision-making process, review of diagnostic data, adjustment of management, discussion with other providers, nursing nursing and ancillary staff involved in patient's care documentation, 26 minutes Charges/Coding Visit Charges Inpatient E&M: 13242 Subs Hosp L2
[2022-07-24] MEDS: Folic Acid 1 MG Tablet PO (07:53)
[2022-07-24] MEDS: Multivitamins,Therapeutic Tablet 1 TABLET PO (07:53)
[2022-07-24] MEDS: APIXABAN 5 MG TABLET PO (07:54)
[2022-07-24] MEDS: Gabapentin 300 MG Capsule 900 MG PO ×3 (07:54→16:48)
--- NOTE | 2022-07-24 09:39 | WOUNDNOTE ---
wound photo: right plantar foot
[2022-07-24] MEDS: Acetaminophen 325 MG Tablet 650 MG PO (09:43)
[2022-07-24] MEDS: Glucerna Shake 120 ML LIQUID PO ×4 (10:30→21:09)
[2022-07-24] MEDS: Cholecalciferol (Vit D3) 125 MCG CAPSULE (5,000 UNITS) PO (10:31)
[2022-07-24 11:01] LABS: Bedside Glucose 109 mg/dL (74-106)
--- NOTE | 2022-07-24 13:40 | CASEMGMT ---
Addendum entered by Avelina Calvo 07/24/22 15:09: Pt worked with therapy, spoke to therapist who is suggesting pt receive balance therapy or if unable to go outpt for this, HHC. JOCELYNE ALANIS in to pt room, pt sitting up in chair. Pt states if he can go home, he would like to do outpt therapy at [facility] for balance training. Discussed HHC as well. Provided pt with a verbal local in network list of DME companies should the patient need oxygen upon dc. Pt chose [employer]. JOCELYNE ALANIS to continue to follow for needs. Original Note: JOCELYNE ALANIS Assessment: Face to Face with pt for initial transition planning/care coordination assessment. JOCELYNE ALANIS introduced self and role at [facility], pt voices understanding and consents to assessment. Pt is A/O x4 and answers all questions appropriately at this time. Pt sitting on eob with oxygen on in no distress. Care providers, pharmacy, and demographics verified/updated. Admitting Dx: pna, FTT adult PCP:[facility] Specialists:Khalida, rheum; Raina, pod; Lakisha, cardio Preferred Pharmacy: [facility] Insurance: [employer] [facility] Prescription Benefit: yes LNOK: Swati Lopez, sister Living Arrangements: Pt lives alone in a single story home with 3 steps to enter in the front and 5 steps to enter in the back with two rails. Pt reports he was I in ADL's prior to hospitalization but per reports he was crawling in his home to get help from neighbor. Transportation: Pt drives self and denies concerns with transportation. DME/HHC/SNF: Pt has a FWW at home but does not use. Pt has 2 grab bars in the bathroom. Pt denies hx of HHC or SNF stays. Therapy recommending SNF yesterday, no therapy notes today. Pt states he is open to more therapy based on what is recommended. Pt states no further concerns/needs. CM to follow. Advised pt to ask CM if any further question/concerns/needs arise, voices understanding. Pt Goal: open to what is recommended Plan: TBD, based on therapy sessions
[2022-07-24 16:20] LABS: Bedside Glucose 78 mg/dL (74-106)
[2022-07-24] MEDS: clonazePAM 0.5 MG Tablet PO (21:08)
[2022-07-24] MEDS: Ceftriaxone 1 GM/50 ML BAG IV (21:09)
[2022-07-24 21:55] LABS: Bedside Glucose 100 mg/dL (74-106)
[2022-07-24] MEDS: MELATONIN 3 MG TABLET PO (23:38)
[2022-07-25] VITALS (7 sets, daily range): BP systolic 95–122; BP diastolic 57–78; PULSE 69–77; RESP 18–21; TEMP 36.6–36.8; O2SAT 84–97
[2022-07-25] MEDS: Acetaminophen 325 MG Tablet 650 MG PO ×2 (03:23→19:56)
[2022-07-25 06:36] LABS: Bedside Glucose 92 mg/dL (74-106)
[2022-07-25 06:47] LABS: Absolute Lymphocyte Count 1.08 X10^3/uL (0.83-4.51); Absolute Neutrophil Count 4.7 X10^3/uL (2.0-7.7); Basophil# 0.07 X10^3/uL; Eosinophil# 0.14 X10^3/uL; Eosinophils% 2.1 % (0-5); Hematocrit 36.4 % (40-54); Hemoglobin 11.7 g/dL (13.0-16.5); Lymphocyte # 1.08 X10^3/ul (0.83-4.51); Lymphocyte % 16.2 % (19-41); Mean Corp Hgb Conc 32.1 g/dL (32-36); Mean Corpuscular Hgb 27.7 pg (27.0-32.0); Mean Corpuscular Volume 86.3 fL (80-94); Mean Platelet Vol. 11.2 fl (6.2-12.0); Monocyte# 0.63 X10^3/uL; Monocyte% 9.4 % (0-10); NRBC Flagged by Analyzer 0 % (0-5); Neutrophil # 4.67 X10^3/uL (2.7-7.7); Neutrophil % 70.1 % (47-70); POSITIVE MORPHOLOGY YES; Platelet Count 179 K/mm3 (150-450); RBC Distribution Width CV 14.7 % (11.6-14.6); RBC Distribution Width SD 45.7 fl (35.1-43.9); Red Blood Count 4.22 M/mm3 (4.6-6.2); White Blood Count 6.7 K/mm3 (4.4-11.0)
[2022-07-25 06:53] LABS: Differential Indicated SCAN CRITERIA MET
[2022-07-25 07:08] LABS: Differential Comment SCANNED
[2022-07-25] MEDS: Glucerna Shake 120 ML LIQUID PO ×4 (07:31→22:08)
[2022-07-25] MEDS: Cholecalciferol (Vit D3) 125 MCG CAPSULE (5,000 UNITS) PO (07:31)
[2022-07-25] MEDS: Multivitamins,Therapeutic Tablet 1 TABLET PO (07:31)
[2022-07-25] MEDS: APIXABAN 5 MG TABLET PO ×2 (07:31→22:10)
[2022-07-25] MEDS: Folic Acid 1 MG Tablet PO (07:31)
[2022-07-25] MEDS: Gabapentin 300 MG Capsule 900 MG PO ×3 (07:34→16:35)
[2022-07-25 07:36] LABS: Anion Gap 7 (5-15); BUN 13 mg/dL (7-18); BUN/Creat Ratio 22.2 RATIO (10-20); Chloride 107 mmol/L (98-107); Creatinine, Serum 0.59 mg/dL (0.70-1.30); EST Glomerular Filtration Rate 142 mL/min (>60); Est Glom Filt Rate - Afr Amer 172 mL/min (>60); Estimated Creatinine Clearance 54.94 ml/min; Ferritin 288 ng/mL (26-388); Glucose 89 mg/dL (74-106); Iron 23 ug/dL (65-175); Iron Binding Capacity,Total 192 ug/dL (250-450); Potassium 3.6 mmol/L (3.5-5.1); Sodium Level 139 mmol/L (136-145)
--- NOTE | 2022-07-25 07:53 | PCM.PN.HOSP ---
Subjective Subjective Still feels generally weak and somewhat unwell but breathing is beginning to improve and cough is improving, appetite improving Objective Data Objective Data Vital Signs: Vital Signs Temp Pulse Resp BP Pulse Ox O2 Del Method O2 Flow Rate 98.2 F 75 20 H 122/78 H 94 Nasal Cannula 2 07/25/22 03:27 07/25/22 03:27 07/25/22 03:27 07/25/22 03:27 07/25/22 03:27 07/25/22 03:28 07/25/22 03:28 Oxygen Flow Rate (L/min) [ 2 AMBULATING with Oxygen #1] Oxygen Flow Rate (L/min) 2 Oxygen Delivery Method Nasal Cannula Weight: 76.5 kg Body Mass Index (BMI) 26.9 Intake & Output: Intake and Output for Last 24 Hours 07/23/22 07/24/22 07/25/22 23:59 23:59 23:59 Intake Total 1553.33 / 1808.33 560 / 860 600 / 600 Output Total 400 / 400 500 / 500 Balance 1153.33 / 1408.33 60 / 360 600 / 600 Lab / Micro Data Result Diagrams: 07/25/22 05:41 07/25/22 05:41 Labs: Laboratory Results - last 24 hr 07/24/22 10:40: POC Glucose 109 H 07/24/22 15:59: POC Glucose 78 07/24/22 21:08: POC Glucose 100 07/25/22 05:41: WBC 6.7, RBC 4.22 L, Hgb 11.7 L, Hct 36.4 L, MCV 86.3, MCH 27.7, MCHC 32.1, RDW Std Deviation 45.7 H, RDW Coeff of Jairo 14.7 H, Plt Count 179, MPV 11.2, Immature Gran % (Auto) 1.200 H, Neut % (Auto) 70.1 H, Lymph % (Auto) 16.2 L, Blackford % (Auto) 9.4, Eos % (Auto) 2.1, Baso % (Auto) 1.0, Absolute Neuts (auto) 4.7, Absolute Lymphs (auto) 1.08, Nucleated RBC % 0, Differential Comment SCANNED 07/25/22 05:41: Sodium 139, Potassium 3.6, Chloride 107, Carbon Dioxide 25.0, Anion Gap 7, BUN 13, Creatinine 0.59 L, Estim Creat Clear Calc 54.94, Est GFR (MDRD) Af Amer 172, Est GFR (MDRD) Non-Af 142, BUN/Creatinine Ratio 22.2 H, Glucose 89, Calcium 8.0 L, Iron 23 L, TIBC 192 L, Ferritin 288 07/25/22 06:13: POC Glucose 92 Physical Exam Const alert and no apparent distress Constitutional Narrative: Oriented HEENT normocephalic and head/scalp atraumatic Eyes Eyes Narrative: EOM grossly intact, anicteric Neck supple Resp Resp Narrative: Faint scattered wheezes Cardio regular rate and regular rhythm GI soft to palpation, non-tender and non-distended Extremity Extremity Narrative: No edema appreciated Neuro moves all extremities Neuro Narrative: No overt focal deficits appreciated Psych Psych Narrative: Cooperative Assessment & Plan Assessment/Plan (1) Pneumonia: PLAN: Plan 69 male history of bilateral carotic stenosis, dilated cardiomyopathy, 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 Given progression likely DC tomorrow if respiratory status still stable, will see if patient qualifies for O2 prior to discharge as I suspect he will with ambulation #Generalized weakness PT/OT Still feels generally weak, would like to go home with home health however #RA Leucovorin Methotrexate #History of VTE into anticardiolipin antibody syndrome On Eliquis chronically #Type 2 diabetes mellitus Last A1c 08/12 of 5.7% Not on any medications, question this diagnosis but maintained on Accu-Cheks #RLS Continue Neupro patch and gabapentin Will check iron levels for a.m. as this may be contributing 07/25: Started on iron supplementation #DVT prophylaxis: Eliquis And time spent in the patient's overall evaluation,decision-making process, review of diagnostic data, adjustment of management, discussion with other providers, nursing nursing and ancillary staff involved in patient's care documentation, 28 minutes Charges/Coding Visit Charges Inpatient E&M: 62154 Subs Hosp L2
[2022-07-25 10:41] LABS: Bedside Glucose 153 mg/dL (74-106)
[2022-07-25] MEDS: Ferrous Sulfate 325 MG Tablet PO (11:39)
--- NOTE | 2022-07-25 13:42 | CASEMGMT ---
Addendum entered by Avelina Calvo 07/25/22 15:55: [facility] and [facility] declined pt. TC kylee Chamberlain at [facility], referral made, will await acceptance. Addendum entered by Avelina Calvo 07/25/22 14:59: JOCELYNE ALANIS in to pt room, pt choices are as follows: 1. [facility] 2. [facility] 3. [facility]. JOCELYNE ALANIS sent referral to [facility] and [facility] via careport at this time. Addendum entered by Avelina Calvo 07/25/22 13:45: Patient was provided a list of [facility] providers including quality and resource use data and consistent with the patient?s preferred geographic region, medical needs, and insurance network were provided from the CarePort Guide. Pt to review list and pick top 3 choices, JOCELYNE ALANIS will check back. Original Note: JOCELYNE ALANIS in to pt room, pt sister at bedside. She is concerned of pt going home. Discussed dc planning with pt and sister, pt wants to return home. He does not want any options for meals which sister is concerned about. He is interested in HHC vs outpt therapy currently.
--- NOTE | 2022-07-25 14:41 | CASEMGMT ---
Social Work? ? SW in to pt room to verify advance directives. Pt confirmed has AD and named?Sandro Faust, as agent. SW made pt aware documents are not on file and if pt would like to bring these documents in the documents can be dropped off at the Medical Records department. Pt voiced understanding.?? ? LETY Kathleen?
[2022-07-25] MEDS: Albuterol 2.5 MG/3 ML VIAL.NEB. INHALATION (15:52)
[2022-07-25 16:20] LABS: Bedside Glucose 107 mg/dL (74-106)
[2022-07-25] MEDS: clonazePAM 0.5 MG Tablet PO (22:07)
[2022-07-25] MEDS: Ceftriaxone 1 GM/50 ML BAG IV (22:07)
[2022-07-25] MEDS: Atorvastatin Calcium 20 MG Tablet PO (22:09)
[2022-07-25 22:45] LABS: Bedside Glucose 119 mg/dL (74-106)
[2022-07-26] VITALS (9 sets, daily range): BP systolic 114–141; BP diastolic 67–85; PULSE 69–83; RESP 18–24; TEMP 36.5–36.6; O2SAT 93–97
[2022-07-26] MEDS: Albuterol 2.5 MG/3 ML VIAL.NEB. INHALATION (04:42)
[2022-07-26] MEDS: Acetaminophen 325 MG Tablet 650 MG PO (05:38)
[2022-07-26 06:21] LABS: Absolute Lymphocyte Count 1.41 X10^3/uL (0.83-4.51); Absolute Neutrophil Count 3.3 X10^3/uL (2.0-7.7); Basophil# 0.05 X10^3/uL; Basophil% 0.9 % (0-1); Eosinophil# 0.13 X10^3/uL; Eosinophils% 2.3 % (0-5); Hematocrit 36.9 % (40-54); Lymphocyte # 1.41 X10^3/ul (0.83-4.51); Lymphocyte % 24.6 % (19-41); Mean Corp Hgb Conc 32.5 g/dL (32-36); Mean Corpuscular Hgb 27.6 pg (27.0-32.0); Mean Corpuscular Volume 84.8 fL (80-94); Mean Platelet Vol. 9.8 fl (6.2-12.0); Monocyte# 0.67 X10^3/uL; Monocyte% 11.7 % (0-10); NRBC Flagged by Analyzer 0 % (0-5); Neutrophil # 3.34 X10^3/uL (2.7-7.7); Neutrophil % 58.1 % (47-70); Platelet Count 220 K/mm3 (150-450); RBC Distribution Width SD 45.8 fl (35.1-43.9); Red Blood Count 4.35 M/mm3 (4.6-6.2); White Blood Count 5.7 K/mm3 (4.4-11.0)
[2022-07-26 06:49] LABS: Anion Gap 8 (5-15); BUN 9 mg/dL (7-18); BUN/Creat Ratio 15.1 RATIO (10-20); Calcium,Total 8.1 mg/dL (8.5-10.1); Chloride 108 mmol/L (98-107); EST Glomerular Filtration Rate 140 mL/min (>60); Est Glom Filt Rate - Afr Amer 169 mL/min (>60); Estimated Creatinine Clearance 54.94 ml/min; Glucose 110 mg/dL (74-106); Potassium 3.6 mmol/L (3.5-5.1); Sodium Level 140 mmol/L (136-145)
[2022-07-26 07:16] LABS: Bedside Glucose 113 mg/dL (74-106)
[2022-07-26] MEDS: Gabapentin 300 MG Capsule 900 MG PO ×3 (07:38→21:39)
[2022-07-26] MEDS: APIXABAN 5 MG TABLET PO ×2 (07:40→21:35)
[2022-07-26] MEDS: Folic Acid 1 MG Tablet PO (07:41)
[2022-07-26] MEDS: Multivitamins,Therapeutic Tablet 1 TABLET PO (07:41)
[2022-07-26] MEDS: leucovorin 5 MG Tablet PO (07:41)
--- NOTE | 2022-07-26 09:21 | CT_ITS ---
STUDY: CT CHEST WITH CONTRAST REASON FOR EXAM: Male, 77 years old. Dyspnea, cough and weakness. Hemoptysis. RADIATION DOSAGE (If Supplied By Facility): CTDIvol = ( 11.71 ) mGy, DLP = ( 386.53 ) mGycm TECHNIQUE: Transaxial imaging was performed following intravenous administration of IV 100mL Isovue-300. Multiplanar coronal and sagittal images were reformatted. Individualized dose optimization techniques were used for this CT. COMPARISON: Comparison is made with prior examination dated 02/09/2021. FINDINGS: CHEST Hyperinflation. Diffuse emphysematous changes with bullous formation worse in the upper lobes. Bronchiectasis and scarring at the lung apices worse in the right lung apex as well as bronchiectasis and scarring in the posterolateral aspect of the right upper lobe. Scarring is also seen in the superior segment of the left lower lobe. Patchy bibasilar infiltrates superimposed on chronic scarring and bronchiectasis with areas of confluence at the lung bases. Minimal bilateral pleural effusions. There are calcifications of the coronary arteries. Normal mediastinum. Normal hilar regions. Normal unenhanced pulmonary arteries. Normal aorta arch and descending thoracic aorta. There are multi-level degenerative changes of the thoracic spine. Gallstones. Bilateral renal cysts. CT/Chest WITH Contrast IMPRESSION: Progressive scarring and emphysematous changes in both lungs with patchy infiltrates at the lung bases with small bilateral effusions. Electronically Signed: Seth Riggs MD at 10:35 EST ,
--- NOTE | 2022-07-26 09:35 | CASEMGMT ---
Addendum entered by Avelina Calvo 07/26/22 11:18: Notified Cintia that pt has decided to pursue SNF at this time via . Addendum entered by Avelina Calvo 07/26/22 10:12: JOCELYNE ALANIS in to pt room to make aware of HHC acceptance. Pt sister in room. Hospitalist made JOCELYNE ALANIS aware that pt thought HHC was 24/7, JOCELYNE ALANIS discussed with pt and sister. He states he is aware this is not 24/7. Discussed HHC expectations. Pt states he does not want to go to SNF. Discussed with patient that he cannot smoke with oxygen as well. Pt brother to get walker from his home. Pt sister became tearful stating she cannot help care for him at home. Discussed meal options as well. Pt states he feels like everyone is telling me I am making the wrong decision. Discussed with pt that it is his decision. Pt and sister to talk further and JOCELYNE ALANIS to check back. SW came in to room at end of conversation. Original Note: Received message from Cintia at [facility], pt able to be accepted for SOC tomorrow.
--- NOTE | 2022-07-26 09:57 | NURSING ---
pt off unit to CT scan via w/ch and returned
[2022-07-26] MEDS: Glucerna Shake 120 ML LIQUID PO ×3 (10:04→21:39)
--- NOTE | 2022-07-26 11:04 | CASEMGMT ---
Social Work? SW in to meet with pt following discussion from and pt family that pt would benefit from placement at nursing facility. SW introduced self and role at the hospital. Pt agreeable to discussing discharge planning. A list of SNF providers including quality and resource use data consistent with the patient?s preferred geographic region, medical needs, and insurance network were provided from the [employer] Guide. Pt reviewed list, noted [facility] first choice and [facility] would be second choice. SW sent referral to [facility] and will await response. ? PLAN: SNF, pending acceptance and precert ? LETY Kathleen?
[2022-07-26 11:26] LABS: Bedside Glucose 146 mg/dL (74-106)
--- NOTE | 2022-07-26 12:33 | PCM.PN.HOSP ---
Subjective Subjective Has still been feeling better overall from respiratory status. Does report he had some blood in his sputum this morning and later in the morning he had a bloody nose after which when he coughed he noted blood. Objective Data Objective Data Vital Signs: Vital Signs Temp Pulse Resp BP Pulse Ox O2 Del Method O2 Flow Rate 97.8 F 83 18 141/80 H 93 Nasal Cannula 3 07/26/22 08:19 07/26/22 08:19 07/26/22 08:19 07/26/22 08:19 07/26/22 08:19 07/26/22 08:19 07/26/22 08:19 Oxygen Flow Rate (L/min) [ 2 AMBULATING with Oxygen #1] Oxygen Flow Rate (L/min) 3 Oxygen Delivery Method Nasal Cannula Weight: 76.5 kg Body Mass Index (BMI) 26.9 Intake & Output: Intake and Output for Last 24 Hours 07/24/22 07/25/22 07/26/22 23:59 23:59 23:59 Intake Total 560 / 860 905 / 1205 500 / 500 Output Total 500 / 500 Balance 60 / 360 905 / 1205 500 / 500 Lab / Micro Data Result Diagrams: 07/26/22 05:53 07/26/22 05:53 Labs: Laboratory Results - last 24 hr 07/25/22 15:47: POC Glucose 107 H 07/25/22 22:24: POC Glucose 119 H 07/26/22 05:53: WBC 5.7, RBC 4.35 L, Hgb 12.0 L, Hct 36.9 L, MCV 84.8, MCH 27.6, MCHC 32.5, RDW Std Deviation 45.8 H, RDW Coeff of Jairo 15.0 H, Plt Count 220, MPV 9.8, Immature Gran % (Auto) 2.400 H, Neut % (Auto) 58.1, Lymph % (Auto) 24.6, [place] % (Auto) 11.7 H, Eos % (Auto) 2.3, Baso % (Auto) 0.9, Absolute Neuts (auto) 3.3, Absolute Lymphs (auto) 1.41, Nucleated RBC % 0 07/26/22 05:53: Sodium 140, Potassium 3.6, Chloride 108 H, Carbon Dioxide 24.0, Anion Gap 8, BUN 9, Creatinine 0.60 L, Estim Creat Clear Calc 54.94, Est GFR (MDRD) Af Amer 169, Est GFR (MDRD) Non-Af 140, BUN/Creatinine Ratio 15.1, Glucose 110 H, Calcium 8.1 L 07/26/22 06:29: POC Glucose 113 H 07/26/22 11:04: POC Glucose 146 H Radiography Diagnostic Testing: Radiology Impression Chest CT 07/26/22 09:21 IMPRESSION: Progressive scarring and emphysematous changes in both lungs with patchy infiltrates at the lung bases with small bilateral effusions. Electronically Signed: Seth Riggs MD at 10:35 EST , Physical Exam Const alert and no apparent distress Constitutional Narrative: Oriented HEENT normocephalic and head/scalp atraumatic Eyes Eyes Narrative: EOM grossly intact, anicteric Neck supple Resp normal respiratory effort Resp Narrative: Minimal scattered wheezes Cardio regular rate and regular rhythm GI soft to palpation, non-tender and non-distended Extremity Extremity Narrative: No edema appreciated Neuro moves all extremities Neuro Narrative: No overt focal deficits appreciated Psych Psych Narrative: Cooperative Assessment & Plan Assessment/Plan (1) Pneumonia: PLAN: Plan 69 male history of bilateral carotic stenosis, dilated cardiomyopathy, 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 Given progression likely DC tomorrow if respiratory status still stable, will see if patient qualifies for O2 prior to discharge as I suspect he will with ambulation 07/26: Still much improved from presentation. Intermittently requiring oxygen. He has been continued on antibiotics. Did note some blood in his sputum that was worse after he had a nosebleed. Performed CT that did not show any mediastinal masses or other concerning underlying pathology. Do not think Eliquis needs to be held. Suspect this is largely due to nosebleeding from nonhumidified O2. We will continue to monitor, nasal saline, humidified O2 if possible #Generalized weakness PT/OT Still feels generally weak, would like to go home with home health however 07/26: Patient still reports feeling very weak and sister significantly concerned about safety of DC plan. Patient and sister would like SNF prior to home. SNF is being pursued, accepted at [place] [facility] and pre-CERT can be started. 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 as this may be contributing 07/25: Started on iron supplementation #DVT prophylaxis: Eliquis And time spent in the patient's overall evaluation,decision-making process, review of diagnostic data, adjustment of management, discussion with other providers, nursing nursing and ancillary staff involved in patient's care documentation, 28 minutes Charges/Coding Visit Charges Inpatient E&M: 00005 Subs Hosp L2
[2022-07-26] MEDS: Ferrous Sulfate 325 MG Tablet PO (12:56)
--- NOTE | 2022-07-26 13:37 | CASEMGMT ---
Social Work Pt has been accepted at [facility]. SW informed the SNF that precert can be started. PLAN: [facility], pending precert LETY Kathleen
[2022-07-26] MEDS: Ceftriaxone 1 GM/50 ML BAG IV (21:31)
[2022-07-26] MEDS: clonazePAM 0.5 MG Tablet PO (21:31)
[2022-07-26] MEDS: Atorvastatin Calcium 20 MG Tablet PO (21:36)
[2022-07-26] MEDS: Sodium Chloride 0.65% 1 SPRAY SPRAY.BTL 2 SPRAY NASAL (21:47)
[2022-07-26] MEDS: traZODone 50 MG Tablet PO (22:26)
[2022-07-27] VITALS (10 sets, daily range): BP systolic 102–132; BP diastolic 62–82; PULSE 73–80; RESP 18–20; TEMP 36.3–36.7; O2SAT 87–98
--- NOTE | 2022-07-27 00:16 | NURSING ---
Patient was in the bathroom at midnight, he stood up from toilet and fell. He says he was trying to fix his pants. He pulled his call light but stood before staff got there. Minor injuries, abrasion to left knee, bruise/abrasion to left flank. Says he hit his head slightly. Vitals wnl. Physican notified and neuro checks started.
--- NOTE | 2022-07-27 00:45 | NURSING ---
dr machuca here and examed pt. no orders at this time. Pt is to report to nurse any neuro symptoms such as new velasquez, numbness and tingling
[2022-07-27] MEDS: Gabapentin 300 MG Capsule 900 MG PO ×3 (05:55→22:02)
[2022-07-27 06:35] LABS: Absolute Neutrophil Count 2.9 X10^3/uL (2.0-7.7); Basophil# 0.06 X10^3/uL; Basophil% 1.2 % (0-1); Eosinophil# 0.15 X10^3/uL; Eosinophils% 2.9 % (0-5); Hematocrit 38.4 % (40-54); Hemoglobin 12.5 g/dL (13.0-16.5); Lymphocyte % 21.4 % (19-41); Mean Corp Hgb Conc 32.6 g/dL (32-36); Mean Corpuscular Volume 86.1 fL (80-94); Mean Platelet Vol. 10.5 fl (6.2-12.0); Monocyte# 0.73 X10^3/uL; Monocyte% 14.2 % (0-10); NRBC Flagged by Analyzer 0 % (0-5); Neutrophil # 2.94 X10^3/uL (2.7-7.7); Neutrophil % 57.2 % (47-70); Platelet Count 253 K/mm3 (150-450); RBC Distribution Width CV 14.9 % (11.6-14.6); RBC Distribution Width SD 46.7 fl (35.1-43.9); Red Blood Count 4.46 M/mm3 (4.6-6.2); White Blood Count 5.1 K/mm3 (4.4-11.0)
[2022-07-27 07:13] LABS: Anion Gap 7 (5-15); BUN 8 mg/dL (7-18); BUN/Creat Ratio 13.8 RATIO (10-20); Calcium,Total 8.5 mg/dL (8.5-10.1); Chloride 110 mmol/L (98-107); Creatinine, Serum 0.58 mg/dL (0.70-1.30); EST Glomerular Filtration Rate 144 mL/min (>60); Est Glom Filt Rate - Afr Amer 175 mL/min (>60); Estimated Creatinine Clearance 54.94 ml/min; Glucose 99 mg/dL (74-106); Potassium 3.8 mmol/L (3.5-5.1); Sodium Level 142 mmol/L (136-145)
--- NOTE | 2022-07-27 07:41 | PCM.PN.HOSP ---
Subjective Subjective Doing fair from a respiratory standpoint, still on O2 and requires increased O2 with ambulation. No further sputum with blood in it. Still feels very weak. Objective Data Objective Data Vital Signs: Vital Signs Temp Pulse Resp BP Pulse Ox O2 Del Method O2 Flow Rate 97.4 F L 73 18 102/82 H 96 Nasal Cannula 4 07/27/22 04:34 07/27/22 04:34 07/27/22 04:34 07/27/22 04:34 07/27/22 07:07 07/27/22 07:07 07/27/22 07:07 Oxygen Flow Rate (L/min) [ 2 AMBULATING with Oxygen #1] Oxygen Flow Rate (L/min) 4 Oxygen Delivery Method Nasal Cannula Weight: 75.5 kg Body Mass Index (BMI) 26.9 Intake & Output: Intake and Output for Last 24 Hours 07/25/22 07/26/22 07/27/22 23:59 23:59 23:59 Intake Total 905 / 1205 1930 / 1930 Output Total 600 / 600 350 / 350 Balance 905 / 1205 1330 / 1330 -350 / -350 Lab / Micro Data Result Diagrams: 07/27/22 05:46 07/27/22 05:46 Labs: Laboratory Results - last 24 hr 07/26/22 11:04: POC Glucose 146 H 07/27/22 05:46: WBC 5.1, RBC 4.46 L, Hgb 12.5 L, Hct 38.4 L, MCV 86.1, MCH 28.0, MCHC 32.6, RDW Std Deviation 46.7 H, RDW Coeff of Jairo 14.9 H, Plt Count 253, MPV 10.5, Immature Gran % (Auto) 3.100 H, Neut % (Auto) 57.2, Lymph % (Auto) 21.4, [place] % (Auto) 14.2 H, Eos % (Auto) 2.9, Baso % (Auto) 1.2 H, Absolute Neuts (auto) 2.9, Absolute Lymphs (auto) 1.10, Nucleated RBC % 0 07/27/22 05:46: Sodium 142, Potassium 3.8, Chloride 110 H, Carbon Dioxide 25.0, Anion Gap 7, BUN 8, Creatinine 0.58 L, Estim Creat Clear Calc 54.94, Est GFR (MDRD) Af Amer 175, Est GFR (MDRD) Non-Af 144, BUN/Creatinine Ratio 13.8, Glucose 99, Calcium 8.5 Radiography Diagnostic Testing: Radiology Impression Chest CT 07/26/22 09:21 IMPRESSION: Progressive scarring and emphysematous changes in both lungs with patchy infiltrates at the lung bases with small bilateral effusions. Electronically Signed: Seth Riggs MD at 10:35 EST , Physical Exam Const alert and no apparent distress Constitutional Narrative: Oriented HEENT normocephalic and head/scalp atraumatic Eyes Eyes Narrative: EOM grossly intact, anicteric Neck supple Resp normal respiratory effort Resp Narrative: Minimal scattered wheezes Cardio regular rate and regular rhythm GI soft to palpation, non-tender and non-distended Extremity Extremity Narrative: No edema appreciated Neuro moves all extremities Neuro Narrative: No overt focal deficits appreciated Psych Psych Narrative: Cooperative Assessment & Plan Assessment/Plan (1) Pneumonia: PLAN: Plan 69 male history of bilateral carotic stenosis, dilated cardiomyopathy, 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 Given progression likely DC tomorrow if respiratory status still stable, will see if patient qualifies for O2 prior to discharge as I suspect he will with ambulation 07/26: Still much improved from presentation. Intermittently requiring oxygen. He has been continued on antibiotics. Did note some blood in his sputum that was worse after he had a nosebleed. Performed CT that did not show any mediastinal masses or other concerning underlying pathology. Do not think Eliquis needs to be held. Suspect this is largely due to nosebleeding from nonhumidified O2. We will continue to monitor, nasal saline, humidified O2 if possible 2: Still requiring O2, more with ambulation #Generalized weakness PT/OT Still feels generally weak, would like to go home with home health however 07/26: Patient still reports feeling very weak and sister significantly concerned about safety of DC plan. Patient and sister would like SNF prior to home. SNF is being pursued, accepted at [place] [facility] and pre-CERT can be started. 07/27: Awaiting preCERT, PT recommending SNF, patient did have a fall last night with no injury and no neurological sequela. 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 as this may be contributing 07/25: Started on iron supplementation #DVT prophylaxis: Eliquis And time spent in the patient's overall evaluation,decision-making process, review of diagnostic data, adjustment of management, discussion with other providers, nursing nursing and ancillary staff involved in patient's care documentation, 28 minutes Charges/Coding Visit Charges Inpatient E&M: 90439 Subs Hosp L2
[2022-07-27] MEDS: Cholecalciferol (Vit D3) 125 MCG CAPSULE (5,000 UNITS) PO (07:50)
[2022-07-27] MEDS: Glucerna Shake 120 ML LIQUID PO ×2 (07:50→12:24)
[2022-07-27] MEDS: Multivitamins,Therapeutic Tablet 1 TABLET PO (07:50)
[2022-07-27] MEDS: Folic Acid 1 MG Tablet PO (07:50)
[2022-07-27] MEDS: APIXABAN 5 MG TABLET PO ×2 (09:40→22:01)
[2022-07-27] MEDS: Sodium Chloride 0.65% 1 SPRAY SPRAY.BTL 2 SPRAY NASAL ×2 (09:41→22:02)
[2022-07-27] MEDS: Methotrexate 2.5 MG Tablet 20 MG PO (09:41)
[2022-07-27] MEDS: Ferrous Sulfate 325 MG Tablet PO (09:41)
--- NOTE | 2022-07-27 13:15 | ST.MBS ---
Modified Barium Swallow - Patient Information Study Date: 07/27/22 Study Time: 13:30 Direct Billable Minutes: 65 Total Minutes procedure & reportin Diagnosis: PNA (J18.9) Referring Physician: Norma Saenz Reason for Referral: Objectively assess swallow function, assess risk for aspiration, and determine recommendations for least restrictive diet textures and compensatory strategies to improve safety of swallow. 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 He presented to [facility] ED 07/22/2022 with dyspnea, cough, weakness, and debility transferred from [facility]. Pt admitted for adult FTT and PNA. SALES SUPPORT REP followed during care due to concerns for dysphagia. Pt placed initially on soft and bite size textures / thin liquids with advancement during POC to Easy to Chew textures / Thin liquids. Due to Chest CT 07/26/2022 revealing bibasilar infiltrate and pt's history of COPD, SALES SUPPORT REP recommended MBSS to rule out SALES SUPPORT REP concerns for silent aspiration. Current Diet Ordered: Easy to Chew textures / Thin liquids Dentition: WNL Mental Status: WNL Respiratory Status: Oxygenating on 4L/M nasal cannula - Penetration-Aspiration Scale Penetration-Aspiration Scale: OBJECTIVE ASSESSMENT OF SWALLOW FUNCTION (QUANTITATIVE ? PER TRIAL): PENETRATION / ASPIRATION SCALE (COLEMAN): 1 = does not enter airway 2 = enters airway/above vocal folds/ejected 3 = enters airway/above vocal folds/not ejected 4 = enters airway/contacts vocal folds/ejected 5 = enters airway/contacts vocal folds/not ejected 6 = enters airway/below vocal folds/ejected 7 = enters airway/below vocal folds/not ejected despite effort 8 = enters airway/below vocal folds/no effort VIDEOFLOROSCOPIC SCALE SCORE (COLEMAN): Grade I = aspiration of material that has penetrated into the laryngeal vestibule, intact cough reflex Grade II = aspiration < 10 % of the bolus, intact cough reflex Grade III = aspiration of < 10 % of the bolus, reduced cough reflex or aspiration of > 10 % of the bolus, intact cough reflex Grade IV = aspiration of > 10 % of the bolus, reduced cough reflex - Penetration-Aspiration Scale Score Thin Liquid via teaspoon Result: 1= does not enter airway Thin Liquid via teaspoon Trial 2 Result: 1= does not enter airway Thin Liquid via sequential sips from cup Result: 2= enter airway/above vocal folds/ejected [place] Thick Liquid via sequential sips from cup Result: 1= does not enter airway Pudding via teaspoon with esophageal screen Result: 1= does not enter airway 1/2 Cookie Result: 1= does not enter airway Thin Liquid via single sip from straw Result: 1= does not enter airway - Oral Phase Labial Seal: No Labial Escape Tongue Control During Bolus Hold: Posterior escape of greater than half of bolus - large, sequential sips of liquids Bolus Preparation/Mastication: Timely and efficient chewing and mashing Bolus Transport/Lingual Motion: Delayed initiation of tongue motion - large, sequential sips of liquids Oral Residue: Residue collection on oral structures - large, sequential sips of liquids - Pharyngeal Phase Initiation of Pharyngeal Swallow: Bolus head in pyriforms - large, sequential sips of liquids Soft Palate Elevation: No bolus between soft palate and pharyngeal wall Laryngeal Elevation: Comp. Superior move thyroid cart w/comp. apprx arytenoid cart-epig pet Anterior Hyoid Excursion: Partial anterior movement Epiglottic Movement: Complete inversion Laryngeal Vestibule Closure at Height of Swallow: Incomplete; narrow column of air/contrast in laryngeal vestibule - trace penetration with full ejection 1X Pharyngeal Stripping Wave: Present - complete Pharyngoesophageal Segment Opening: Parital distension and partial duration; parital obstruction of flow Tongue Base Retraction: Trace column of contrast between tongue base & post. pharyngeal wall Pharyngeal Residue: Trace residue within or on pharyngeal structures - Esophageal Phase Esophageal Clearance: Esophageal retention - trace - Diagnosis/Impression Diagnosis: Mild oropharyngeal phase dysphagia (R13.12) Impression: The oral phase is primarily marked by... -Decreased bolus control with <1/2 of the bolus spilling posteriorly to the posterior surface of the epiglottis prior to swallow onset observed only with large, sequential sips. -Mild oral residue after the swallow with large sips, which mostly cleared with independent initiation of a second swallow as needed. -Adequate mastication of cookie trial. The pharyngeal phase is primarily marked by... -Mildly decreased anterior hyoid excursion; however, patient maintained good airway closure during the swallow throughout the study. No aspiration observed and one instance of laryngeal penetration with full ejection. -Trace retention of barium in UES due to mildly decreased UES opening/duration. Small CP bar present at the level of C-4 and C-5, but it did not appear to impact bolus clearance. - Recommendations Diet: Regular Textures, Thin Liquids Compensatory Strategies: Small Bites, Small Sips, Slow Rate, Sitting upright Supervision: Distant Supervision - encourage slow rate of oral intake Recommend Repeat Modified Barium Swallow: No Need for Skilled Speech Therapy Services: Yes Comment: Follow 1-2 additional sessions to ensure diet tolerance and implement home oropharyngeal exercise program to promote improved anterior hyoid excursion and UES opening/duration (SUKHDEV Palacios). Education Completed: 1. Described result of evaluation. - Status Active ST Patient: Active - Contact Information [facility] Speech Therapy:: Elida Nazario M.A. [facility] REP Speech-Language Pathologist [facility] [address] [place] [address] [email or web address] [phone] 07/27/22 14:11
--- NOTE | 2022-07-27 15:21 | CASEMGMT ---
Social Work SW spoke with [facility]. They are able to accept pt but precert is still pending. Requested updated clinicals faxed to [facility]. SW met with pt and updated on above. Pt is appreciative of update. SW did inform pt that facility is requesting pt bring Rinvoa from home. Pt states that he is no longer taking this as his PCP said it was adversely affecting his liver. Pt states that if it is restarted, he can bring from home. [facility] updated. Plan: [facility], pending precert LETY Bui
[2022-07-27] MEDS: Acetaminophen 325 MG Tablet 650 MG PO (20:44)
[2022-07-27] MEDS: Atorvastatin Calcium 20 MG Tablet PO (22:01)
[2022-07-27] MEDS: Ceftriaxone 1 GM/50 ML BAG IV (22:02)
[2022-07-27] MEDS: clonazePAM 0.5 MG Tablet PO (22:03)
[2022-07-28 03:30] VITALS: BP 109/61; PULSE 68; RESP 18; TEMP 36.3; O2SAT 96
[2022-07-28 05:47] LABS: Absolute Lymphocyte Count 0.76 X10^3/uL (0.83-4.51); Absolute Neutrophil Count 2.4 X10^3/uL (2.0-7.7); Basophil# 0.05 X10^3/uL; Basophil% 1.3 % (0-1); Eosinophil# 0.12 X10^3/uL; Eosinophils% 3.2 % (0-5); Hematocrit 46.1 % (40-54); Hemoglobin 13.7 g/dL (13.0-16.5); Lymphocyte # 0.76 X10^3/ul (0.83-4.51); Mean Corp Hgb Conc 29.7 g/dL (32-36); Mean Corpuscular Hgb 28.4 pg (27.0-32.0); Mean Corpuscular Volume 95.6 fL (80-94); Mean Platelet Vol. 9.7 fl (6.2-12.0); Monocyte# 0.42 X10^3/uL; Monocyte% 11.1 % (0-10); NRBC Flagged by Analyzer 0 % (0-5); Neutrophil # 2.35 X10^3/uL (2.7-7.7); Neutrophil % 61.8 % (47-70); Platelet Count 259 K/mm3 (150-450); RBC Distribution Width CV 14.9 % (11.6-14.6); RBC Distribution Width SD 51.7 fl (35.1-43.9); Red Blood Count 4.82 M/mm3 (4.6-6.2); White Blood Count 3.8 K/mm3 (4.4-11.0)
[2022-07-28 06:06] LABS: Anion Gap 8 (5-15); BUN 10 mg/dL (7-18); BUN/Creat Ratio 16.8 RATIO (10-20); Calcium,Total 8.5 mg/dL (8.5-10.1); Chloride 110 mmol/L (98-107); EST Glomerular Filtration Rate 140 mL/min (>60); Est Glom Filt Rate - Afr Amer 169 mL/min (>60); Estimated Creatinine Clearance 54.94 ml/min; Glucose 96 mg/dL (74-106); Potassium 4.1 mmol/L (3.5-5.1); Sodium Level 141 mmol/L (136-145)
[2022-07-28] MEDS: Gabapentin 300 MG Capsule 900 MG PO ×2 (06:34→14:39)
[2022-07-28 07:11] VITALS: O2SAT 96
[2022-07-28 09:30] VITALS: BP 106/66; PULSE 90; RESP 18; TEMP 36.4; O2SAT 97
[2022-07-28] MEDS: Ferrous Sulfate 325 MG Tablet PO (09:46)
[2022-07-28] MEDS: Glucerna Shake 120 ML LIQUID PO ×2 (09:46→14:39)
[2022-07-28] MEDS: Folic Acid 1 MG Tablet PO (09:47)
[2022-07-28] MEDS: Cholecalciferol (Vit D3) 125 MCG CAPSULE (5,000 UNITS) PO (09:47)
[2022-07-28] MEDS: Multivitamins,Therapeutic Tablet 1 TABLET PO (09:48)
[2022-07-28] MEDS: APIXABAN 5 MG TABLET PO (09:48)
[2022-07-28] MEDS: Sodium Chloride 0.65% 1 SPRAY SPRAY.BTL 2 SPRAY NASAL (09:49)
--- NOTE | 2022-07-28 11:09 | CASEMGMT ---
Social Work SW received message from [facility] that precert has been obtained. Physician updated and plans to discharge pt today. SW met with pt and his sister and informed that precert is obtained and discharge will be today. Pt informed that wheelchair transport if not covered by insurance. Pt is understanding. Pt and sister agreeable to discharge plan. LETY Bui
--- NOTE | 2022-07-28 13:51 | TREXTCAR_ITS ---
Diet Diet Order/Speech Therapy: 07/23/22 00:29 Diet: Consistent Carb - Calorie Controlled Food consistency:: Regular Liquid Consistency:: Regular/Thin Diet Comments: Distant Supervision How many daily calories?: 1800 calorie Routine Orders/Code Status Suppository Type: Dulcolax 10mg Suppository Frequency: Daily PRN O2 Liters per Minute: 2 O2 Frequency: 4 with ambulation Keep PO Greater than or Equal to (%): 92 Code Status: DNRCC-A (No intubation) Wound(s) bottom of right foot: Wound Type: Callus left forehead: Wound Type: Abrasion Left flank: Wound Type: Abrasion Left knee: Wound Type: Abrasion Therapies Physical Therapy: Eval and Treat Occupational Therapy: Eval and Treat Speech Therapy: Eval and Treat Problem/Diagnosis (1) Community acquired pneumonia: Status: Acute Code(s): J18.9 - Pneumonia, unspecified organism (2) COPD (chronic obstructive pulmonary disease): Status: Chronic Code(s): J44.9 - Chronic obstructive pulmonary disease, unspecified (3) Essential hypertension: Status: Chronic Code(s): I10 - Essential (primary) hypertension (4) Rheumatoid arthritis: Status: Acute Code(s): M06.9 - Rheumatoid arthritis, unspecified (5) History of venous thromboembolism: Status: Acute Code(s): Z86.718 - Personal history of other venous thrombosis and embolism Plan #CAP in the setting of history of COPD #Generalized weakness #RA #History of VTE into anticardiolipin antibody syndrome #RLS 69 male w/ history of bilateral carotic stenosis, dilated cardiomyopathy, restless leg syndrome, 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 He had hypoxia and was placed on oxygen and deemed to have community-acquired pneumonia in the setting of history of COPD. He was placed on Rocephin and azithromycin and has had variable amounts of O2 requirements with increased requirements during ambulation. Respiratory status did not improve though at 1 point he reported some blood in his sputum, did reveal that he had nosebleed however and after nasal spray and humidified oxygen nosebleeds resolved and no further blood in sputum though did obtain CT of the chest to be cautious which did not show any mediastinal masses. Stay was complicated by generalized weakness and a fall when attempting to get out of bed that the fall did not result in injury and Eliquis did not have to be held and no neurological deficits or sequelae manifested. He did work with physical therapy and ultimately after discussions with him and his sister and social work and case management [facility] was [facility] before going home would be beneficial. On day of discharge he reports still feeling much better than presentation though still does have some shortness of breath and is still on O2. Had no other complaints at this time. He will be discharged on 3 more days of cefixime for his community-acquired pneumonia and has completed his azithromycin. There was question if he was still upadacitinib as it was previously noted as a home med but he reports he has not been taking this at home any longer so will not be discharged on this. Day prior to discharge she did complain of some difficulty swallowing and had a videofluoroscopic swallow evaluation and was recommended a diet of regular textures and thin liquids with small bites, small sips, slow rate, sitting upright. Additionally he has a history of restless leg syndrome, his medications were continued and his iron was checked which seemed to be somewhat low so he was started on iron supplementation. Allergies/Procedures Done in Hospital Allergies No Known Allergies Allergy (Verified 07/15/20 10:06) Procedures: - (Fluoroscopic swallow evaluation, CT chest) Type of Care/Length of Stay Estimated LOS: Convalescent Care Less Than 30 days Type of Care Needed: Skilled Rehab Potential: Good Prognosis: Good Additional Orders/Day of Discharge Day of Discharge: 07/28/22 Dietary and Speech Recommendations Dietitian Recommendations/Changes: Continue 1800CCD diet to manage blood sugars. RD will order 120mL Glucerna 4x with medpass to provide supplemental energy. Discharge Plan Admission Admit Date/Time: 07/24/22 12:08 Primary Reason for Your Visit: Shortness of breath, weakness Attending Provider: Norma Saenz Primary Care Provider: Vanessa Christina Consulting Providers: Jeri Last ; Zhen Donald Instructions Patient Instructions: ED Pneumonia (Adult) Discharge Orders/Prescriptions Prescriptions: New albuterol sulfate 2.5 mg /3 mL (0.083 %) Solution For Nebulization 2.5 mg inhalation Q2H PRN PRN (Reason: Dyspnea, wheezing) Qty: 0 0RF ferrous sulfate [FeroSul] 325 mg (65 mg iron) Tablet 325 mg PO LUNCH Qty: 0 0RF sennosides-docusate sodium [Stool Softener-Stimulant Laxat] 8.6-50 mg Tablet 2 tab PO BID PRN PRN (Reason: Constipation) Qty: 60 0RF Deep Sea Nasal 0.65 % Aerosol,[place] 2 spray NASAL BID Qty: 0 0RF cefixime 400 mg capsule 400 mg PO DAILY 3 Days Qty: 3 0RF Continued tramadol 50 mg tablet 50 mg PO TID PRN (Reason: Pain) multivitamin tablet 1 tab PO DAILY trazodone 50 mg tablet 50 mg PO QHS PRN (Reason: sleep) melatonin 10 mg tablet 10 mg PO HS PRN (Reason: Insomnia) cholecalciferol (vitamin D3) 125 mcg (5,000 unit) tablet 125 mcg PO DAILY folic acid 800 mcg tablet 0.8 mg PO DAILY simvastatin 40 MG tablet 40 mg PO QHS Label Comments: REDUCES CHOLESTEROL methotrexate sodium 2.5 mg tablet 17.5 mg PO QWEEK Label Comments: RHEUMATOID ARTHRITIS Rx Instructions: takes every ; take 7 tablets by mouth every week leucovorin calcium 5 MG tablet 5 mg PO QWEEK Label Comments: RHEUMATOID ARTHRITIS clonazepam 0.5 MG tablet 0.5 mg PO QHS 0RF Label Comments: sleep gabapentin 300 MG capsule 900 mg PO TIDCM Neupro 4 mg/24 hour patch 24 hour 4 mg transdermal DAILY Eliquis 5 mg tablet 5 mg PO BID Label Comments: take 1 tablet by mouth twice a day Referrals / Follow Up: Fast,Vanessa, DO [Primary Care Provider] - Disposition Disposition (needs filled in before D/C Order can be placed): [facility] Living Facility
--- NOTE | 2022-07-28 14:51 | DS.PCM_ITS ---
Providers Date of Admission: 07/24/22 Date of Discharge: 07/28/22 Primary Care Physician: Dr. Vanessa Christina, Consultations 07/23/22 04:43 Consult: Onc/Wound/repairer controller tester Routine Comment: Reason for Consult:: R plant foot wound Reason For Visit: PNA, FTT ADULT Diagnosis Discharge Diagnosis (1) Community acquired pneumonia: Status: Acute Code(s): J18.9 - Pneumonia, unspecified organism (2) COPD (chronic obstructive pulmonary disease): Status: Chronic Code(s): J44.9 - Chronic obstructive pulmonary disease, unspecified (3) Essential hypertension: Status: Chronic Code(s): I10 - Essential (primary) hypertension (4) Rheumatoid arthritis: Status: Acute Code(s): M06.9 - Rheumatoid arthritis, unspecified (5) History of venous thromboembolism: Status: Acute Code(s): Z86.718 - Personal history of other venous thrombosis and embolism Plan #CAP in the setting of history of COPD #Generalized weakness #RA #History of VTE into anticardiolipin antibody syndrome #RLS Medications at Discharge Home Medications simvastatin 40 mg tablet 40 mg PO QHS 09/14/15 leucovorin calcium 5 mg tablet 5 mg PO QWEEK 08/25/16 clonazepam 0.5 mg tablet 0.5 mg PO QHS 08/27/16 gabapentin 300 mg capsule 900 mg PO TIDCM restless legs 08/29/18 multivitamin 1 tab PO DAILY 11/04/18 tramadol 50 mg tablet 50 mg PO TID PRN Pain 11/04/18 melatonin 10 mg tablet 10 mg PO HS PRN Insomnia 01/21/20 cholecalciferol (vitamin D3) 125 mcg (5,000 unit) tablet 125 mcg PO DAILY 07/15/20 folic acid 800 mcg tablet 0.8 mg PO DAILY 07/15/20 methotrexate sodium 2.5 mg tablet 17.5 mg PO QWEEK RA 07/15/20 trazodone 50 mg tablet 50 mg PO QHS PRN sleep 07/15/20 apixaban 5 mg tablet (Eliquis) 5 mg PO BID Check with primary doctor 07/23/22 rotigotine 4 mg/24 hour transdermal 24 hour patch (Neupro) 4 mg transdermal DAILY restless legs 07/23/22 albuterol sulfate 2.5 mg/3 mL (0.083 %) solution for nebulization 2.5 mg (3 mL) inhalation Q2H PRN PRN Dyspnea, wheezing #0 mL 07/28/22 cefixime 400 mg capsule 400 mg PO DAILY 3 days #3 caps 07/28/22 ferrous sulfate 325 mg (65 mg iron) tablet (FeroSul) 325 mg PO LUNCH #0 tabs 07/28/22 sennosides 8.6 mg-docusate sodium 50 mg tablet (Stool Softener-Stimulant Laxative) 2 tab PO BID PRN PRN Constipation #60 tabs 07/28/22 sodium chloride 0.65 % nasal spray aerosol (Deep Sea Nasal) 2 spray NASAL BID #0 mL 07/28/22 Hospital Course Procedures - (Fluoroscopic swallow eval) Summary of Care Provided Minutes Spent on Discharge: 40 Hospital Course: 69 male w/ history of bilateral carotic stenosis, dilated cardiomyopathy, restless leg syndrome, 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 He had hypoxia and was placed on oxygen and deemed to have community-acquired pneumonia in the setting of history of COPD. He was placed on Rocephin and azithromycin and has had variable amounts of O2 requirements with increased requirements during ambulation. Respiratory status did not improve though at 1 point he reported some blood in his sputum, did reveal that he had nosebleed however and after nasal spray and humidified oxygen nosebleeds resolved and no further blood in sputum though did obtain CT of the chest to be cautious which did not show any mediastinal masses. Stay was complicated by generalized weakness and a fall when attempting to get out of bed that the fall did not result in injury and Eliquis did not have to be held and no neurological deficits or sequelae manifested. He did work with physical therapy and ultimately after discussions with him and his sister and social work and case management it was deemed long term facility for rehab before going home would be beneficial. On day of discharge he reports still feeling much better than presentation though still does have some shortness of breath and is still on O2. Had no other complaints at this time. He will be discharged on 3 more days of cefixime for his community-acquired pneumonia and has completed his azithromycin. There was question if he was still upadacitinib as it was previously noted as a home med but he reports he has not been taking this at home any longer so will not be discharged on this. Day prior to discharge she did complain of some difficulty swallowing and had a videofluoroscopic swallow evaluation and was recommended a diet of regular textures and thin liquids with small bites, small sips, slow rate, sitting upright. Additionally he has a history of restless leg syndrome, his medications were continued and his iron was checked which seemed to be somewhat low so he was started on iron supplementation. Physical Exam Const alert and no apparent distress Constitutional Narrative: Oriented HEENT normocephalic and head/scalp atraumatic Eyes Eyes Narrative: EOM grossly intact, anicteric Neck supple Resp normal respiratory effort Resp Narrative: Minimal scattered wheezes Cardio regular rate and regular rhythm GI soft to palpation, non-tender and non-distended Extremity Extremity Narrative: No edema appreciated Neuro moves all extremities Neuro Narrative: No overt focal deficits appreciated Psych Psych Narrative: Cooperative Weight / BMI Weight Weight: 75 kg Body Mass Index (BMI) 26.9 ABG / Lab / Microbiology Data Result Diagrams: 07/28/22 05:42 07/28/22 05:42 Laboratory: Laboratory Results - last 24 hr 07/28/22 05:42: WBC 3.8 L, RBC 4.82, Hgb 13.7, Hct 46.1, MCV 95.6 H D, MCH 28.4, MCHC 29.7 L D, RDW Std Deviation 51.7 H, RDW Coeff of Jairo 14.9 H, Plt Count 259, MPV 9.7, Immature Gran % (Auto) 2.600 H, Neut % (Auto) 61.8, Lymph % (Auto) 20.0, Burke % (Auto) 11.1 H, Eos % (Auto) 3.2, Baso % (Auto) 1.3 H, Absolute Neuts (auto) 2.4, Absolute Lymphs (auto) 0.76 L, Nucleated RBC % 0 07/28/22 05:42: Sodium 141, Potassium 4.1, Chloride 110 H, Carbon Dioxide 23.0, Anion Gap 8, BUN 10, Creatinine 0.60 L, Estim Creat Clear Calc 54.94, Est GFR (MDRD) Af Amer 169, Est GFR (MDRD) Non-Af 140, BUN/Creatinine Ratio 16.8, Glucose 96, Calcium 8.5 Microbiology: Microbiology 07/28/22 11:00 Nasal Secretion SARS-CoV-2 Antigen (Rapid) - Final Meaningful Use Info Meaningful Use Diagnoses (Choose all that apply): None applicable Discharge Plan Admission Admit Date/Time: 07/24/22 12:08 Primary Reason for Your Visit: Shortness of breath, weakness Attending Provider: Norma Saenz Primary Care Provider: Vanessa Christina Consulting Providers: Jeri Last ; Zhen Donald Instructions Patient Instructions: ED Pneumonia (Adult) Discharge Orders/Prescriptions Prescriptions: New albuterol sulfate 2.5 mg /3 mL (0.083 %) Solution For Nebulization 2.5 mg inhalation Q2H PRN PRN (Reason: Dyspnea, wheezing) Qty: 0 0RF ferrous sulfate [FeroSul] 325 mg (65 mg iron) Tablet 325 mg PO LUNCH Qty: 0 0RF sennosides-docusate sodium [Stool Softener-Stimulant Laxat] 8.6-50 mg Tablet 2 tab PO BID PRN PRN (Reason: Constipation) Qty: 60 0RF Deep Sea Nasal 0.65 % Aerosol,[place] 2 spray NASAL BID Qty: 0 0RF cefixime 400 mg capsule 400 mg PO DAILY 3 Days Qty: 3 0RF Continued tramadol 50 mg tablet 50 mg PO TID PRN (Reason: Pain) multivitamin tablet 1 tab PO DAILY trazodone 50 mg tablet 50 mg PO QHS PRN (Reason: sleep) melatonin 10 mg tablet 10 mg PO HS PRN (Reason: Insomnia) cholecalciferol (vitamin D3) 125 mcg (5,000 unit) tablet 125 mcg PO DAILY folic acid 800 mcg tablet 0.8 mg PO DAILY simvastatin 40 MG tablet 40 mg PO QHS Label Comments: REDUCES CHOLESTEROL methotrexate sodium 2.5 mg tablet 17.5 mg PO QWEEK Label Comments: RHEUMATOID ARTHRITIS Rx Instructions: takes every ; take 7 tablets by mouth every week leucovorin calcium 5 MG tablet 5 mg PO QWEEK Label Comments: RHEUMATOID ARTHRITIS clonazepam 0.5 MG tablet 0.5 mg PO QHS 0RF Label Comments: sleep gabapentin 300 MG capsule 900 mg PO TIDCM Neupro 4 mg/24 hour patch 24 hour 4 mg transdermal DAILY Eliquis 5 mg tablet 5 mg PO BID Label Comments: take 1 tablet by mouth twice a day Referrals / Follow Up: Vanessa Christina DO [Primary Care Provider] - Disposition Disposition (needs filled in before D/C Order can be placed): [facility] Charges/Coding Visit Charges Inpatient E&M: 60535 Disch Hosp >30min
--- NOTE | 2022-07-28 15:38 | CASEMGMT ---
Social Work Precert has been obtained. Physician updated and pt is ready for discharge today. 7000 convalescent form completed in [facility] and sent along with discharge orders and covid results to [facility] via [facility]. Transportation arranged with [facility] for 6:30 pickup via wheelchair van. SW met with pt and updated on discharge plan. Pt agreeable to discharge plan as stated above and states he will call his sister. [facility] and bedside nurse notified of discharge time. [facility] under convalescent stay. LETY Bui
--- NOTE | 2022-07-28 16:03 | NURSING ---
Report called to [facility]. Patient awaitng transport.
[2022-07-28 16:41] VITALS: BP 103/66; PULSE 75; RESP 18; TEMP 36.7; O2SAT 96
== END 2022-07-28 18:18 | disposition skilled nursing facility (03) | DRG 194 ==
PROVIDERS: Internal Medicine; Admitting Provider Family Medicine; PCP Internal Medicine; Visit Provider Internal Medicine
DX: J18.9 Pneumonia, unspecified organism (principal); J44.0 Chronic obstructive pulmonary disease with (acute) lower respiratory infection; I42.0 Dilated cardiomyopathy; D68.61 Antiphospholipid syndrome; R62.7 Adult failure to thrive; E11.9 Type 2 diabetes mellitus without complications; M06.9 Rheumatoid arthritis, unspecified; F17.200 Nicotine dependence, unspecified, uncomplicated; I10 Essential (primary) hypertension; G25.81 Restless legs syndrome; K21.9 Gastro-esophageal reflux disease without esophagitis; E87.6 Hypokalemia; E78.5 Hyperlipidemia, unspecified; F41.9 Anxiety disorder, unspecified; I65.23 Occlusion and stenosis of bilateral carotid arteries; W06.XXXA Fall from bed, initial encounter; F32.A Depression, unspecified; R09.02 Hypoxemia; R04.0 Epistaxis; R13.10 Dysphagia, unspecified; Z68.26 Body mass index [BMI] 26.0-26.9, adult; Z79.01 Long term (current) use of anticoagulants; Z79.899 Other long term (current) drug therapy; Z86.718 Personal history of other venous thrombosis and embolism; Z60.2 Problems related to living alone; Z66 Do not resuscitate
CPT/HCPCS: 36415; 71260; 74230; 80048; 80053; 82728; 82962; 83036; 83540; 83550; 83735; 85025; 87426; 92526; 92610; 92611; 94640; 94668; 94762; 97110; 97116; 97161; 97166; 97530; 97535; 97802; 99252; 99406; J7030; J7050; Q9967; G0463; J8610

== ENCOUNTER → 2022-08-09 | Outpatient (CLI) | payer MEDICARE, SELFPAY ==
[2022-08-09 15:41] LABS: Absolute Lymphocyte Count 0.99 X10^3/uL (0.83-4.51); Absolute Neutrophil Count 3.3 X10^3/uL (2.0-7.7); Basophil# 0.07 X10^3/uL; Basophil% 1.4 % (0-1); Eosinophil# 0.07 X10^3/uL; Eosinophils% 1.4 % (0-5); Hematocrit 40.3 % (40-54); Hemoglobin 12.5 g/dL (13.0-16.5); Lymphocyte # 0.99 X10^3/ul (0.83-4.51); Lymphocyte % 20.3 % (19-41); Mean Corpuscular Hgb 27.8 pg (27.0-32.0); Mean Corpuscular Volume 89.8 fL (80-94); Mean Platelet Vol. 10.2 fl (6.2-12.0); Monocyte# 0.44 X10^3/uL; NRBC Flagged by Analyzer 0 % (0-5); Neutrophil # 3.28 X10^3/uL (2.7-7.7); Neutrophil % 67.3 % (47-70); Platelet Count 298 K/mm3 (150-450); RBC Distribution Width CV 15.2 % (11.6-14.6); RBC Distribution Width SD 48.5 fl (35.1-43.9); Red Blood Count 4.49 M/mm3 (4.6-6.2); White Blood Count 4.9 K/mm3 (4.4-11.0)
[2022-08-09 16:02] LABS: ALB/GLOB Ratio 0.7 RATIO (0.9-2.4); AST(SGOT) 21 U/L (15-37); Alanine Aminotransfer ALT/SGPT 32 U/L (16-61); Albumin, Serum 3.1 g/dL (3.2-5.0); Alkaline Phosphatase 95 U/L (45-117); Anion Gap 8 (5-15); BUN 17 mg/dL (7-18); BUN/Creat Ratio 21.2 RATIO (10-20); Calcium,Total 9.4 mg/dL (8.5-10.1); Chloride 109 mmol/L (98-107); EST Glomerular Filtration Rate 99 mL/min (>60); Est Glom Filt Rate - Afr Amer 120 mL/min (>60); Globulin 4.2 g/dL (2.2-4.2); Glucose 107 mg/dL (74-106); Potassium 4.1 mmol/L (3.5-5.1); Protein, Total 7.3 g/dL (6.4-8.2); Sodium Level 144 mmol/L (136-145)
== END | disposition home or self-care (01) ==
LOC: MTLAB 11:46
PROVIDERS: PCP Internal Medicine; Referring Provider Internal Medicine Rheumatology; Visit Provider Internal Medicine Rheumatology
DX: M05.79 Rheumatoid arthritis with rheumatoid factor of multiple sites without organ or systems involvement (principal); Z79.899 Other long term (current) drug therapy
CPT/HCPCS: 36415; 80053; 85025

== ENCOUNTER → 2022-08-23 | Outpatient (CLI) | payer MEDICARE, SELFPAY ==
--- NOTE | 2022-08-23 11:17 | RAD_ITS ---
INDICATION: follow up on pneumonia in 2-3 weeks -- follow up on pneumonia in 2-3 weeks EXAMINATION/TECHNIQUE: X-RAY - XR Chest 2 Views COMPARISON: CT July 26, 2022. Chest radiograph November 22, 2021. FINDINGS: LINES/DEVICES: None. LUNGS: Residual posterior left lower lobe airspace disease best seen on lateral view. Linear atelectasis noted in the lung bases. No gross effusion. No pneumothorax. MEDIASTINUM AND CARDIOVASCULAR STRUCTURES: Cardiac silhouette not enlarged. Mild aortic atherosclerosis. BONES AND SOFT TISSUES: Unremarkable. RAD/Chest PA and Lateral IMPRESSION: Persistent posterior left lower lobe airspace disease. Please note radiographic improvement may lag behind clinical improvement. Correlate with exam. Additional follow-up radiograph is recommended in 4 weeks.. Electronically Signed: Evens Dozier MD at 7:38 EST ,
== END | disposition home or self-care (01) ==
LOC: RAD 11:17
PROVIDERS: PCP Internal Medicine; Referring Provider Internal Medicine; Visit Provider Internal Medicine
DX: J18.9 Pneumonia, unspecified organism (principal)
CPT/HCPCS: 71046

== ENCOUNTER → 2022-09-15 | Outpatient (CLI) | payer MEDICARE, SELFPAY ==
--- NOTE | 2022-09-15 10:39 | MRI_ITS ---
EXAM: MR RIGHT UPPER EXTREMITY WITHOUT INTRAVENOUS CONTRAST, FOREARM CLINICAL INDICATION: RHEUMATOID ARTHRITIS TECHNIQUE: Multiplanar and multisequence MR images of the right forearm without intravenous contrast. This report was created using [facility] report generation technology. COMPARISON: None. FINDINGS: BONES/JOINTS: Tenosynovitis involving the traversing cover compartments of the wrist suggesting intersection syndrome. Incompletely imaged elbows and wrists are notable for what appear to be severe arthritic changes at the radiocarpal articulations. See dedicated wrist evaluation. No fracture. No joint effusion. No marrow signal alterations. MUSCLES: Unremarkable. No edema or myositis. OTHER SOFT TISSUES: Unremarkable. No solid or cystic mass. MRI/Upper Ext/No Jt/ wo IMPRESSION: 1. 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 2. Severe radiocarpal arthritic changes. Please see dedicated wrist imaging for further investigation/details as this is incompletely imaged on this study. Electronically Signed: Francisco Krishnan MD at 0:34 EDT ,
--- NOTE | 2022-09-15 10:39 | MRI_ITS ---
EXAM: MR RIGHT UPPER EXTREMITY WITHOUT INTRAVENOUS CONTRAST, HAND CLINICAL INDICATION: RHEUMATOID ARTHRITIS TECHNIQUE: Multiplanar and multisequence MR images of the right hand without intravenous contrast. This report was created using [employer] report [employer] technology. COMPARISON: None. FINDINGS: ARTIFACTS: Significant motion artifact limits assessment. LIGAMENTS: Grossly intact. TENDONS: FLEXOR: Tenosynovitis involving the second through fourth flexor tendons. EXTENSOR: Unremarkable. Intact. MUSCLES: Unremarkable. No edema or myositis. FLUID: No fluid collections. BONES/JOINTS: Second through fifth metacarpophalangeal joint arthroplasties are identified with susceptibility artifact limiting assessment of adjacent tissues. Susceptibility artifact about the first carpometacarpal joint; correlate with surgical history. Extensive erosive arthritic changes involving the wrist including the radiocarpal articulations and intercarpal articulations as well as the first carpometacarpal joint. MRI/Upper Ext/No Jt/ wo IMPRESSION: Extensive erosive arthritic changes involving the wrist including the radiocarpal articulations and intercarpal articulations as well as the first carpometacarpal joint. Tenosynovitis involving the second through fourth flexor tendons. Electronically Signed: Francisco Krishnan MD at 0:43 EDT ,
== END | disposition home or self-care (01) ==
PROVIDERS: PCP Internal Medicine
DX: M06.9 Rheumatoid arthritis, unspecified (principal)
CPT/HCPCS: 73218

== ENCOUNTER → 2022-10-20 | Outpatient (CLI) | payer MEDICARE, SELFPAY ==
[2022-10-20 08:31] LABS: Absolute Lymphocyte Count 0.99 X10^3/uL (0.83-4.51); Absolute Neutrophil Count 4.3 X10^3/uL (2.0-7.7); Basophil# 0.04 X10^3/uL; Basophil% 0.7 % (0-1); Eosinophil# 0.25 X10^3/uL; Eosinophils% 4.2 % (0-5); Lymphocyte # 0.99 X10^3/ul (0.83-4.51); Lymphocyte % 16.6 % (19-41); Mean Corp Hgb Conc 31.7 g/dL (32-36); Mean Corpuscular Hgb 28.1 pg (27.0-32.0); Mean Corpuscular Volume 88.7 fL (80-94); Mean Platelet Vol. 9.9 fl (6.2-12.0); Monocyte# 0.33 X10^3/uL; Monocyte% 5.5 % (0-10); NRBC Flagged by Analyzer 0 % (0-5); Neutrophil # 4.32 X10^3/uL (2.7-7.7); Neutrophil % 72.5 % (47-70); Platelet Count 254 K/mm3 (150-450); RBC Distribution Width CV 14.9 % (11.6-14.6); RBC Distribution Width SD 47.1 fl (35.1-43.9); Red Blood Count 4.62 M/mm3 (4.6-6.2)
[2022-10-20 09:01] LABS: ALB/GLOB Ratio 0.8 RATIO (0.9-2.4); AST(SGOT) 18 U/L (15-37); Alanine Aminotransfer ALT/SGPT 26 U/L (16-61); Albumin, Serum 3.2 g/dL (3.2-5.0); Alkaline Phosphatase 90 U/L (45-117); Anion Gap 4 (5-15); BUN 17 mg/dL (7-18); BUN/Creat Ratio 22.1 RATIO (10-20); Calcium,Total 8.9 mg/dL (8.5-10.1); Chloride 109 mmol/L (98-107); Cholesterol 141 mg/dL (200); Creatinine, Serum 0.77 mg/dL (0.70-1.30); EST Glomerular Filtration Rate 104 mL/min (>60); Est Glom Filt Rate - Afr Amer 126 mL/min (>60); Globulin 3.8 g/dL (2.2-4.2); Glucose 81 mg/dL (74-106); High Density Lipoprotein 52 mg/dL; Sodium Level 138 mmol/L (136-145); Triglycerides 65 mg/dL; Very Low Density Lipoprotein 13 mg/dL (5-40)
[2022-10-20 09:10] LABS: Hemoglobin A1c 5.5 % (3.8-5.6)
== END | disposition home or self-care (01) ==
LOC: LAB 07:26
PROVIDERS: PCP Internal Medicine; Referring Provider Internal Medicine; Visit Provider Internal Medicine
DX: E11.9 Type 2 diabetes mellitus without complications (principal); E78.49 Other hyperlipidemia
CPT/HCPCS: 36415; 80053; 80061; 83036; 85025

== ENCOUNTER → 2022-11-02 | Outpatient (CLI) | payer MEDICARE, SELFPAY ==
[2022-11-02 09:59] LABS: Absolute Lymphocyte Count 1.17 X10^3/uL (0.83-4.51); Absolute Neutrophil Count 2.5 X10^3/uL (2.0-7.7); Basophil# 0.08 X10^3/uL; Basophil% 1.8 % (0-1); Eosinophil# 0.18 X10^3/uL; Eosinophils% 4.1 % (0-5); Hematocrit 43.1 % (40-54); Hemoglobin 13.7 g/dL (13.0-16.5); Lymphocyte # 1.17 X10^3/ul (0.83-4.51); Lymphocyte % 26.8 % (19-41); Mean Corp Hgb Conc 31.8 g/dL (32-36); Mean Corpuscular Hgb 28.6 pg (27.0-32.0); Mean Platelet Vol. 9.8 fl (6.2-12.0); Monocyte% 9.2 % (0-10); NRBC Flagged by Analyzer 0 % (0-5); Neutrophil # 2.52 X10^3/uL (2.7-7.7); Neutrophil % 57.9 % (47-70); Platelet Count 255 K/mm3 (150-450); RBC Distribution Width CV 14.9 % (11.6-14.6); RBC Distribution Width SD 48.6 fl (35.1-43.9); Red Blood Count 4.79 M/mm3 (4.6-6.2); White Blood Count 4.4 K/mm3 (4.4-11.0)
[2022-11-02 10:37] LABS: ALB/GLOB Ratio 0.9 RATIO (0.9-2.4); AST(SGOT) 23 U/L (15-37); Alanine Aminotransfer ALT/SGPT 30 U/L (16-61); Albumin, Serum 3.3 g/dL (3.2-5.0); Alkaline Phosphatase 82 U/L (45-117); Anion Gap 5 (5-15); BUN 18 mg/dL (7-18); Calcium,Total 8.9 mg/dL (8.5-10.1); Chloride 109 mmol/L (98-107); Creatinine, Serum 0.75 mg/dL (0.70-1.30); EST Glomerular Filtration Rate 107 mL/min (>60); Est Glom Filt Rate - Afr Amer 129 mL/min (>60); Globulin 3.6 g/dL (2.2-4.2); Glucose 119 mg/dL (74-106); Potassium 3.8 mmol/L (3.5-5.1); Protein, Total 6.9 g/dL (6.4-8.2); Sodium Level 141 mmol/L (136-145)
== END | disposition home or self-care (01) ==
LOC: LAB 09:24
PROVIDERS: PCP Internal Medicine; Referring Provider Internal Medicine Rheumatology; Visit Provider Internal Medicine Rheumatology
DX: M05.79 Rheumatoid arthritis with rheumatoid factor of multiple sites without organ or systems involvement (principal); Z79.899 Other long term (current) drug therapy
CPT/HCPCS: 36415; 80053; 85025

== ENCOUNTER → 2022-11-28 | Outpatient (CLI) | payer MEDICARE, SELFPAY ==
--- NOTE | 2022-11-28 16:48 | CT_ITS ---
STUDY: CT CHEST WITHOUT CONTRAST REASON FOR EXAM: Male, 77 years old. Lung nodule RADIATION DOSAGE (If Supplied By Facility): CTDIvol = ( 10.10 ) mGy, DLP = ( 396.35 ) mGycm TECHNIQUE: Transaxial imaging was performed without the administration of intravenous contrast material. Multiplanar coronal and sagittal images were reformatted. Individualized dose optimization techniques were used for this CT. COMPARISON: Comparison is made with prior study dated July 26, 2022. FINDINGS: CHEST Hyperinflation. Diffuse emphysematous changes with bullous formation worse in the upper lobes. Once again, there is evidence of scarring and bronchiectasis in both lung apices more prominent on the right side. Scarring is also seen in the superior segment of the left lower lobe. The previously seen pulmonary infiltrates in the lower lobes have almost completely cleared. The previously seen infiltration in the posterior aspect of the right upper lobe abutting the right major fissure has cleared as well. There is no demonstrated pleural abnormality. There are calcifications of the coronary arteries. There are multiple small lymph nodes within the mediastinum, which are normal in size and morphology most compatible with reactive lymph hyperplasia. Normal hilar regions. Normal unenhanced pulmonary arteries. There is atherosclerotic calcification of the aortic arch with tortuosity and elongation of the aortic arch and descending thoracic aorta. There are multi-level degenerative changes of the thoracic spine. There is no demonstrated abnormality of the visualized upper abdomen. CT/Chest without Contrast IMPRESSION: Stable emphysematous changes with bullous formation and the scarring in both lung apices. Interval resolution of the infiltrations in both lower lobes as well as in the posterior aspect of the right upper lobe. Electronically Signed: Seth Riggs MD at 14:41 EDT ,
== END | disposition home or self-care (01) ==
LOC: CT 16:43
PROVIDERS: PCP Internal Medicine; Referring Provider Internal Medicine; Visit Provider Internal Medicine
DX: R91.1 Solitary pulmonary nodule (principal)
CPT/HCPCS: 71250

== ENCOUNTER → 2023-01-25 | Outpatient (CLI) | payer MEDICARE, SELFPAY ==
[2023-01-25 08:35] LABS: Absolute Lymphocyte Count 1.25 X10^3/uL (0.83-4.51); Absolute Neutrophil Count 3.2 X10^3/uL (2.0-7.7); Basophil# 0.04 X10^3/uL; Basophil% 0.8 % (0-1); Eosinophil# 0.09 X10^3/uL; Eosinophils% 1.8 % (0-5); Hematocrit 40.4 % (40-54); Hemoglobin 13.1 g/dL (13.0-16.5); Lymphocyte # 1.25 X10^3/ul (0.83-4.51); Lymphocyte % 24.4 % (19-41); Mean Corp Hgb Conc 32.4 g/dL (32-36); Mean Corpuscular Hgb 28.4 pg (27.0-32.0); Mean Corpuscular Volume 87.6 fL (80-94); Monocyte% 9.7 % (0-10); NRBC Flagged by Analyzer 0 % (0-5); Neutrophil # 3.22 X10^3/uL (2.7-7.7); Neutrophil % 62.7 % (47-70); Platelet Count 201 K/mm3 (150-450); RBC Distribution Width CV 15.1 % (11.6-14.6); RBC Distribution Width SD 47.9 fl (35.1-43.9); Red Blood Count 4.61 M/mm3 (4.6-6.2); White Blood Count 5.1 K/mm3 (4.4-11.0)
[2023-01-25 09:14] LABS: ALB/GLOB Ratio 0.8 RATIO (0.9-2.4); AST(SGOT) 23 U/L (15-37); Alanine Aminotransfer ALT/SGPT 24 U/L (16-61); Albumin, Serum 3.1 g/dL (3.2-5.0); Alkaline Phosphatase 86 U/L (45-117); Anion Gap 7 (5-15); BUN 11 mg/dL (7-18); BUN/Creat Ratio 15.8 RATIO (10-20); Calcium,Total 8.6 mg/dL (8.5-10.1); Chloride 105 mmol/L (98-107); EST Glomerular Filtration Rate 116 mL/min (>60); Est Glom Filt Rate - Afr Amer 141 mL/min (>60); Glucose 92 mg/dL (74-106); Potassium 4.2 mmol/L (3.5-5.1); Protein, Total 7.1 g/dL (6.4-8.2); Sodium Level 139 mmol/L (136-145)
== END | disposition home or self-care (01) ==
LOC: LAB 07:32
PROVIDERS: PCP Internal Medicine; Referring Provider Internal Medicine Rheumatology; Visit Provider Internal Medicine Rheumatology
DX: M05.79 Rheumatoid arthritis with rheumatoid factor of multiple sites without organ or systems involvement (principal); Z79.899 Other long term (current) drug therapy
CPT/HCPCS: 36415; 80053; 85025

== ENCOUNTER → 2023-04-24 | Outpatient (CLI) | payer MEDICARE, SELFPAY ==
[2023-04-24 12:01] LABS: Absolute Lymphocyte Count 0.92 X10^3/uL (0.83-4.51); Absolute Neutrophil Count 3.6 X10^3/uL (2.0-7.7); Basophil# 0.07 X10^3/uL; Basophil% 1.4 % (0-1); Eosinophil# 0.08 X10^3/uL; Eosinophils% 1.6 % (0-5); Hematocrit 40.4 % (40-54); Hemoglobin 12.8 g/dL (13.0-16.5); Lymphocyte # 0.92 X10^3/ul (0.83-4.51); Mean Corp Hgb Conc 31.7 g/dL (32-36); Mean Corpuscular Volume 88.4 fL (80-94); Monocyte# 0.19 X10^3/uL; Monocyte% 3.9 % (0-10); NRBC Flagged by Analyzer 0 % (0-5); Neutrophil # 3.57 X10^3/uL (2.7-7.7); Neutrophil % 73.7 % (47-70); Platelet Count 194 K/mm3 (150-450); RBC Distribution Width CV 15.4 % (11.6-14.6); RBC Distribution Width SD 49.7 fl (35.1-43.9); Red Blood Count 4.57 M/mm3 (4.6-6.2); White Blood Count 4.9 K/mm3 (4.4-11.0)
[2023-04-24 12:20] LABS: ALB/GLOB Ratio 0.8 RATIO (0.9-2.4); AST(SGOT) 26 U/L (15-37); Alanine Aminotransfer ALT/SGPT 43 U/L (16-61); Albumin, Serum 3.1 g/dL (3.2-5.0); Alkaline Phosphatase 101 U/L (45-117); Anion Gap 2 (5-15); BUN 17 mg/dL (7-18); BUN/Creat Ratio 21.7 RATIO (10-20); Calcium,Total 8.4 mg/dL (8.5-10.1); Chloride 110 mmol/L (98-107); Creatinine, Serum 0.78 mg/dL (0.70-1.30); EST Glomerular Filtration Rate 102 mL/min (>60); Est Glom Filt Rate - Afr Amer 123 mL/min (>60); Globulin 3.7 g/dL (2.2-4.2); Glucose 140 mg/dL (74-106); Potassium 4.1 mmol/L (3.5-5.1); Protein, Total 6.8 g/dL (6.4-8.2); Sodium Level 139 mmol/L (136-145)
== END | disposition home or self-care (01) ==
LOC: LAB 11:40
PROVIDERS: PCP Internal Medicine; Referring Provider Internal Medicine Rheumatology; Visit Provider Internal Medicine Rheumatology
DX: M05.79 Rheumatoid arthritis with rheumatoid factor of multiple sites without organ or systems involvement (principal); M17.0 Bilateral primary osteoarthritis of knee; Z79.899 Other long term (current) drug therapy
CPT/HCPCS: 36415; 80053; 85025

== ENCOUNTER → 2023-05-16 | Outpatient (CLI) | payer MEDICARE, SELFPAY ==
--- NOTE | 2023-05-16 09:42 | CDU_ITS ---
Reason For Study: Carotid stenosis Rt. Velocities/BP Lt. Velocities/BP Prox CCA 90/16.3 cm/sec. Prox CCA 100.3/20.1 cm/sec. Mid CCA 102.5/22.3 cm/sec. Mid CCA 97.1/20.1 cm/sec. Dist CCA 81.7/22.3 cm/sec. Dist CCA 77.3/17.9 cm/sec. Prox ICA 106.5/17 cm/sec. Prox ICA 74/15.7 cm/sec. Mid ICA 80.2/18.8 cm/sec. Mid ICA 71.1/21.3 cm/sec. Dist ICA 88.8/23.7 cm/sec. Dist ICA 67.4/22.1 cm/sec. Rt. ICA/CCA = 1.18. Lt. ICA/CCA = 0.76. Prox ECA 137.5/22.5 cm/sec. Prox ECA 90.5/13.5 cm/sec. Rt. Vert. 42.1/10.2 cm/sec. Lt. Vert. 50.9/11.6 cm/sec. Right Extracranial There is heterogeneous, irregular atherosclerotic plaque noted in the right common carotid artery. There is heterogeneous, irregular atherosclerotic plaque noted in the right internal carotid artery. There is homogeneous, smooth atherosclerotic plaque noted in the right external carotid artery. Antegrade flow is noted in the right vertebral artery. Left Extracranial There is homogeneous, smooth atherosclerotic plaque noted in the left common carotid artery. There is homogeneous, smooth atherosclerotic plaque noted in the left internal carotid artery. There is heterogeneous, irregular atherosclerotic plaque noted in the left external carotid artery. Antegrade flow is noted in the left vertebral artery. Procedure This is a Carotid Duplex examination using B-mode, color flow and specral Doppler. Carotid Duplex [id number]. Exam performed in department. VL/Carotid Duplex Ultrasound Interpretation Summary Mild (<50%) stenosis right extracranial internal carotid. Mild (<50%) stenosis left extracranial internal carotid. Flow within the vertebral arteries is antegrade bilaterally. Ordering Physician: Vanessa Christina Referring Physician: Vanessa Christina Performed By: Kaila Cesar RVT
== END | disposition home or self-care (01) ==
LOC: CVS 09:42
PROVIDERS: PCP Internal Medicine; Referring Provider Internal Medicine; Visit Provider Internal Medicine
DX: I65.23 Occlusion and stenosis of bilateral carotid arteries (principal)
CPT/HCPCS: 93880

== ENCOUNTER → 2023-07-17 | Outpatient (CLI) | payer MEDICARE, SELFPAY ==
[2023-07-17 16:22] LABS: Absolute Lymphocyte Count 1.14 X10^3/uL (0.83-4.51); Absolute Neutrophil Count 2.2 X10^3/uL (2.0-7.7); Basophil# 0.07 X10^3/uL; Basophil% 1.7 % (0-1); Eosinophil# 0.18 X10^3/uL; Eosinophils% 4.5 % (0-5); Hematocrit 41.9 % (40-54); Hemoglobin 13.3 g/dL (13.0-16.5); Lymphocyte # 1.14 X10^3/ul (0.83-4.51); Lymphocyte % 28.4 % (19-41); Mean Corp Hgb Conc 31.7 g/dL (32-36); Mean Corpuscular Hgb 28.1 pg (27.0-32.0); Mean Corpuscular Volume 88.6 fL (80-94); Mean Platelet Vol. 9.6 fl (6.2-12.0); Monocyte# 0.46 X10^3/uL; Monocyte% 11.5 % (0-10); NRBC Flagged by Analyzer 0 % (0-5); Neutrophil # 2.15 X10^3/uL (2.7-7.7); Neutrophil % 53.7 % (47-70); Platelet Count 208 K/mm3 (150-450); RBC Distribution Width CV 15.6 % (11.6-14.6); RBC Distribution Width SD 50.6 fl (35.1-43.9); Red Blood Count 4.73 M/mm3 (4.6-6.2)
[2023-07-17 17:06] LABS: ALB/GLOB Ratio 0.9 RATIO (0.9-2.4); AST(SGOT) 73 U/L (15-37); Alanine Aminotransfer ALT/SGPT 102 U/L (16-61); Albumin, Serum 3.2 g/dL (3.2-5.0); Alkaline Phosphatase 87 U/L (45-117); Anion Gap 1 (5-15); BUN 16 mg/dL (7-18); BUN/Creat Ratio 23.3 RATIO (10-20); Calcium,Total 8.8 mg/dL (8.5-10.1); Chloride 110 mmol/L (98-107); Creatinine, Serum 0.69 mg/dL (0.70-1.30); EST Glomerular Filtration Rate 118 mL/min (>60); Est Glom Filt Rate - Afr Amer 143 mL/min (>60); Globulin 3.7 g/dL (2.2-4.2); Glucose 80 mg/dL (74-106); Potassium 4.1 mmol/L (3.5-5.1); Protein, Total 6.9 g/dL (6.4-8.2); Sodium Level 140 mmol/L (136-145)
== END | disposition home or self-care (01) ==
LOC: LAB 16:04
PROVIDERS: PCP Internal Medicine; Referring Provider Internal Medicine Rheumatology; Visit Provider Internal Medicine Rheumatology
DX: M05.79 Rheumatoid arthritis with rheumatoid factor of multiple sites without organ or systems involvement (principal); M17.0 Bilateral primary osteoarthritis of knee; Z79.899 Other long term (current) drug therapy
CPT/HCPCS: 36415; 80053; 85025

== ENCOUNTER → 2023-08-07 | Outpatient (CLI) | payer MEDICARE, SELFPAY ==
[2023-08-07 16:07] LABS: Absolute Lymphocyte Count 1.98 X10^3/uL (0.83-4.51); Absolute Neutrophil Count 2.1 X10^3/uL (2.0-7.7); Basophil# 0.06 X10^3/uL; Basophil% 1.3 % (0-1); Eosinophil# 0.19 X10^3/uL; Hematocrit 44.3 % (40-54); Hemoglobin 14.3 g/dL (13.0-16.5); Lymphocyte # 1.98 X10^3/ul (0.83-4.51); Lymphocyte % 41.7 % (19-41); Mean Corp Hgb Conc 32.3 g/dL (32-36); Mean Corpuscular Hgb 28.4 pg (27.0-32.0); Mean Corpuscular Volume 87.9 fL (80-94); Mean Platelet Vol. 9.3 fl (6.2-12.0); Monocyte% 8.4 % (0-10); NRBC Flagged by Analyzer 0 % (0-5); Neutrophil # 2.11 X10^3/uL (2.7-7.7); Neutrophil % 44.4 % (47-70); Platelet Count 206 K/mm3 (150-450); RBC Distribution Width CV 15.5 % (11.6-14.6); RBC Distribution Width SD 49.3 fl (35.1-43.9); Red Blood Count 5.04 M/mm3 (4.6-6.2); White Blood Count 4.8 K/mm3 (4.4-11.0)
[2023-08-07 16:55] LABS: ALB/GLOB Ratio 0.7 RATIO (0.9-2.4); AST(SGOT) 19 U/L (15-37); Alanine Aminotransfer ALT/SGPT 23 U/L (16-61); Albumin, Serum 3.2 g/dL (3.2-5.0); Alkaline Phosphatase 111 U/L (45-117); Anion Gap 3 (5-15); BUN 17 mg/dL (7-18); BUN/Creat Ratio 21.4 RATIO (10-20); Calcium,Total 9.2 mg/dL (8.5-10.1); Chloride 111 mmol/L (98-107); Cholesterol 181 mg/dL (200); EST Glomerular Filtration Rate 100 mL/min (>60); Est Glom Filt Rate - Afr Amer 121 mL/min (>60); Globulin 4.4 g/dL (2.2-4.2); Glucose 99 mg/dL (74-106); High Density Lipoprotein 43 mg/dL; Potassium 4.4 mmol/L (3.5-5.1); Protein, Total 7.6 g/dL (6.4-8.2); Sodium Level 142 mmol/L (136-145); Triglycerides 75 mg/dL; Very Low Density Lipoprotein 15 mg/dL (5-40); Vitamin D,25 Hydroxy 35.6 ng/mL
[2023-08-07 17:01] LABS: Hemoglobin A1c 5.7 % (3.8-5.6)
[2023-08-07 17:07] LABS: Microalbumin,Random Urine 7.4 mg/L (NO RANGE EST.); Microalbumin:Creatinine Ratio 10.1 mg/g CRE (<30 mg/g CRE)
== END | disposition home or self-care (01) ==
LOC: LAB 15:42
PROVIDERS: PCP Internal Medicine; Referring Provider Internal Medicine; Visit Provider Internal Medicine
DX: E11.9 Type 2 diabetes mellitus without complications (principal); E78.49 Other hyperlipidemia; E55.9 Vitamin D deficiency, unspecified
CPT/HCPCS: 36415; 80053; 80061; 82043; 82306; 82570; 83036; 85025

== ENCOUNTER → 2023-08-23 | Outpatient (CLI) | payer MEDICARE, SELFPAY ==
--- NOTE | 2023-08-23 08:31 | US_ITS ---
EXAM: US ABDOMEN LIMITED, RIGHT UPPER QUADRANT CLINICAL INDICATION: ELEVATED LFT''S TECHNIQUE: Real-time ultrasound of the right upper quadrant with image documentation. COMPARISON: PET/CT, 10/11/2017 FINDINGS: LIVER: No significant abnormality. There is normal echotexture. No focal hepatic lesion. No intrahepatic biliary ductal dilation. GALLBLADDER: There is cholelithiasis. No gallbladder wall thickening is demonstrated. No pericholecystic fluid. Negative sonographic Stevens''s sign. COMMON BILE DUCT: Normal as visualized. The proximal common bile duct is within normal limits for the patient''s age. PANCREAS: Normal as visualized. No focal abnormality is demonstrated in the pancreas. No pancreatic ductal dilatation. RIGHT KIDNEY: Multiple right renal simple cysts are present, largest measuring 2 cm and for which no follow-up is indicated. No shadowing calculus. US/Liver IMPRESSION: There is cholelithiasis. No secondary signs of cholecystitis. Electronically Signed: Judson Bonilla DO at 22:07 EST ,
== END | disposition home or self-care (01) ==
LOC: US 08:30
PROVIDERS: PCP Internal Medicine; Referring Provider Internal Medicine Rheumatology; Visit Provider Internal Medicine Rheumatology
DX: M05.79 Rheumatoid arthritis with rheumatoid factor of multiple sites without organ or systems involvement (principal); Z79.899 Other long term (current) drug therapy
CPT/HCPCS: 76705

== ENCOUNTER → 2023-09-06 | Outpatient (CLI) | payer MEDICARE, SELFPAY ==
--- NOTE | 2023-09-06 09:00 | BD_ITS ---
STUDY: DUAL ENERGY X-RAY ABSORPTIOMETRY / DXA REASON FOR EXAM: Male, 78 years old. 733.90OsteopeniaBONE DENSITY REASON FOR EXAM TECHNIQUE: Bone Mineral Density (BMD) measurements of lumbar spine and bilateral hips were obtained. COMPARISON: Comparison is made with prior study February 17, 2021. FINDINGS: Lumbar Spine (L1-L4): g/cm2 (1.065) / T-score (0.1) / Z-score (1.2) Findings are suggestive of normal bone density with a low fracture risk. Left Femur Total: g/cm2 (0.832) / T-score (-1.3) / Z-score (-0.3) Left Femoral Neck: g/cm2 (0.641) / T-score (-2.1) / Z-score (-0.6) Right Femur Total: g/cm2 (0.839) / T-score (-1.3) / Z-score (-0.3) Right Femoral Neck: g/cm2 (0.624) / T-score (-2.2) / Z-score (-0.8) The T-Scores on the most recent prior examination were: Lumbar Spine (L1-L4): There has been improvement of bone density since the previous examination. Left Femur Total: which represents a worsening of 6.3%. Right Femur Total: which represents a worsening of 0.6%. BD/Dexa Bone Density Study IMPRESSION: The patient is considered osteopenic as outlined below according to World Sanju Organization (WHO) criteria with a high fracture risk. There has been worsening of bone density since the previous examination. Reference Information: The T-score is the number of standard deviations above or below the standard which is normal for young adults at their peak bone mineral density. The World Health Organization (WHO) interprets the T-scores as follows: Above -1 Normal bone density Between -1 and -2.5 Osteopenia Equal to / or below -2.5 Osteoporosis As a practical clinical guideline, osteopenia may be graded as follows: Mild -1 through -1.5 Moderate -1.6 through -2.0 Severe -2.1 through -2.4 The Z-score is the number of standard deviations above or below age-matched controls. A Z-score of less than -1.5 would be considered abnormal. References: 1. NIH Osteoporosis and Related Bone Diseases www osteo.org 2. International Society for Clinical Densitometry www iscd.org 3. National Osteoporosis Foundation www nof.org Electronically Signed: Seth Riggs MD at 11:02 EDT ,
== END | disposition home or self-care (01) ==
PROVIDERS: PCP Internal Medicine; Referring Provider Internal Medicine; Visit Provider Internal Medicine
DX: M85.89 Other specified disorders of bone density and structure, multiple sites (principal)
CPT/HCPCS: 77080

== ENCOUNTER → 2023-09-07 | Outpatient (CLI) | payer MEDICARE, SELFPAY ==
[2023-09-10 10:15] LABS: Pathologist Comment May follow
[2023-09-10 12:51] LABS: Synovial Fld Mononuclear WBC # 1.622 10^3/ul; Synovial Fld Mononuclear WBC % 24.2 %; Synovial Fld Polynuclear WBC # 5.069 10^3/uL; Synovial Fld Polynuclear WBC % 75.8 %
[2023-09-10 12:52] LABS: RBC /Synovial Fluid 0.008 10^6/uL (0)
[2023-09-10 14:32] LABS: CRYSTALS, BODY FLUID NO CRYSTALS SEEN; Lymph 7 %; Monocyte /Synovial Fluid 3 %; Neutrophil 90 % (0-25)
[2023-09-10 14:33] LABS: Source / Synovial Fluid LEFT KNEE; Source- Body Fluid SYNOVIAL
[2023-09-10 14:34] LABS: Appearance /Synovial Fluid Clear (CLEAR); Body Fluid QC Type(s) BF2Q,BF3Q; Color / Synovial Fluid Yellow (Pale Yellow)
[2023-09-11 14:19] LABS: Pathologist Review Reviewed
[2023-09-11 14:32] LABS: AUTO B FLUID DILUENT BKGD CT WBC <0.1 RBC <0.01 (W<.1,R<.01)
== END | disposition home or self-care (01) ==
LOC: LABSPEC 09-10 10:10
PROVIDERS: PCP Internal Medicine; Visit Provider Internal Medicine Rheumatology
DX: M05.762 Rheumatoid arthritis with rheumatoid factor of left knee without organ or systems involvement (principal); M25.562 Pain in left knee
CPT/HCPCS: 87070; 87075; 87205; 89050; 89051; 89060

== ENCOUNTER → 2023-10-23 | Outpatient (CLI) | payer MEDICARE, SELFPAY ==
[2023-10-23 12:54] LABS: Absolute Lymphocyte Count 1.83 X10^3/uL (0.83-4.51); Basophil# 0.06 X10^3/uL; Basophil% 1.4 % (0-1); Eosinophil# 0.07 X10^3/uL; Eosinophils% 1.6 % (0-5); Hematocrit 44.8 % (40-54); Hemoglobin 14.5 g/dL (13.0-16.5); Lymphocyte # 1.83 X10^3/ul (0.83-4.51); Lymphocyte % 41.3 % (19-41); Mean Corp Hgb Conc 32.4 g/dL (32-36); Mean Corpuscular Hgb 29.5 pg (27.0-32.0); Mean Corpuscular Volume 91.2 fL (80-94); Mean Platelet Vol. 9.9 fl (6.2-12.0); Monocyte# 0.46 X10^3/uL; Monocyte% 10.4 % (0-10); NRBC Flagged by Analyzer 0 % (0-5); Neutrophil # 1.99 X10^3/uL (2.7-7.7); Neutrophil % 44.8 % (47-70); Platelet Count 158 K/mm3 (150-450); RBC Distribution Width SD 53.1 fl (35.1-43.9); Red Blood Count 4.91 M/mm3 (4.6-6.2); White Blood Count 4.4 K/mm3 (4.4-11.0)
[2023-10-23 13:40] LABS: ALB/GLOB Ratio 0.9 RATIO (0.9-2.4); AST(SGOT) 19 U/L (15-37); Alanine Aminotransfer ALT/SGPT 33 U/L (16-61); Albumin, Serum 3.2 g/dL (3.2-5.0); Alkaline Phosphatase 92 U/L (45-117); Anion Gap 4 (5-15); BUN 14 mg/dL (7-18); BUN/Creat Ratio 19.7 RATIO (10-20); Chloride 110 mmol/L (98-107); Creatinine, Serum 0.71 mg/dL (0.70-1.30); EST Glomerular Filtration Rate 114 mL/min (>60); Est Glom Filt Rate - Afr Amer 137 mL/min (>60); Globulin 3.4 g/dL (2.2-4.2); Glucose 102 mg/dL (74-106); Potassium 4.4 mmol/L (3.5-5.1); Protein, Total 6.6 g/dL (6.4-8.2); Sodium Level 142 mmol/L (136-145)
== END | disposition home or self-care (01) ==
PROVIDERS: PCP Internal Medicine; Referring Provider Internal Medicine Rheumatology; Visit Provider Internal Medicine Rheumatology
DX: M05.79 Rheumatoid arthritis with rheumatoid factor of multiple sites without organ or systems involvement (principal); Z79.899 Other long term (current) drug therapy
CPT/HCPCS: 36415; 80053; 85025

== ENCOUNTER → 2024-01-15 | Outpatient (CLI) | payer MEDICARE, SELFPAY ==
[2024-01-15 10:31] LABS: Absolute Lymphocyte Count 1.39 X10^3/uL (0.83-4.51); Absolute Neutrophil Count 3.9 X10^3/uL (2.0-7.7); Basophil# 0.06 X10^3/uL; Eosinophil# 0.17 X10^3/uL; Eosinophils% 2.8 % (0-5); Hematocrit 44.2 % (40-54); Lymphocyte # 1.39 X10^3/ul (0.83-4.51); Lymphocyte % 22.6 % (19-41); Mean Corp Hgb Conc 31.7 g/dL (32-36); Mean Corpuscular Hgb 29.4 pg (27.0-32.0); Mean Corpuscular Volume 92.7 fL (80-94); Mean Platelet Vol. 10.4 fl (6.2-12.0); Monocyte# 0.61 X10^3/uL; Monocyte% 9.9 % (0-10); NRBC Flagged by Analyzer 0 % (0-5); Neutrophil # 3.88 X10^3/uL (2.7-7.7); Neutrophil % 63.2 % (47-70); Platelet Count 149 K/mm3 (150-450); RBC Distribution Width CV 13.9 % (11.6-14.6); Red Blood Count 4.77 M/mm3 (4.6-6.2); White Blood Count 6.1 K/mm3 (4.4-11.0)
[2024-01-15 11:24] LABS: ALB/GLOB Ratio 0.9 RATIO (0.9-2.4); AST(SGOT) 27 U/L (15-37); Alanine Aminotransfer ALT/SGPT 29 U/L (16-61); Albumin, Serum 3.2 g/dL (3.2-5.0); Alkaline Phosphatase 112 U/L (45-117); Anion Gap 4 (5-15); BUN 21 mg/dL (7-18); BUN/Creat Ratio 30.3 RATIO (10-20); Calcium,Total 8.8 mg/dL (8.5-10.1); Chloride 108 mmol/L (98-107); Creatinine, Serum 0.69 mg/dL (0.70-1.30); EST Glomerular Filtration Rate 117 mL/min (>60); Est Glom Filt Rate - Afr Amer 142 mL/min (>60); Globulin 3.7 g/dL (2.2-4.2); Glucose 102 mg/dL (74-106); Potassium 4.5 mmol/L (3.5-5.1); Protein, Total 6.9 g/dL (6.4-8.2); Sodium Level 140 mmol/L (136-145)
== END | disposition home or self-care (01) ==
LOC: LAB 09:12
PROVIDERS: PCP Internal Medicine; Visit Provider Internal Medicine Rheumatology
DX: M05.762 Rheumatoid arthritis with rheumatoid factor of left knee without organ or systems involvement (principal)
CPT/HCPCS: 36415; 80053; 85025

== ENCOUNTER → 2024-02-22 | Outpatient (CLI) | payer MEDICARE, SELFPAY ==
--- NOTE | 2024-02-22 13:03 | VDLE_ITS ---
Reason For Study: DVT RIGHT LEFT GSV is normal. GSV is normal. CFV is compressible, spontaneous, phasic, CFV is compressible, spontaneous, phasic, competent and demonstrates normal competent, and demonstrates normal augmentation. augmentation. FV is compressible, spontaneous, phasic, FV is compressible, spontaneous, phasic, competent and demonstrates normal competent and demonstrates normal augmentation. augmentation. POP V is compressible, spontaneous, phasic, POP V is compressible, spontaneous, phasic, competent and demonstrates normal competent and demonstrates normal augmentation. augmentation. T/P Trunk is compressible. T/P Trunk is compressible. PTV is compressible. PTV is compressible. RT PerV is compressible. LT PerV is compressible. Procedure This is a venous duplex using B-mode, color flow and spectral Doppler. Exam performed in department. The exam was diagnostic. VL/Venous Duplex US - Huber Extrem Interpretation Summary Deep veins of the lower extremities are bilaterally patent and compressible seg mentally. There is no evidence of deep vein thrombosis on either side. Valvular competence appears in tact within the proximal deep venous systems bilaterally. The great saphenous veins appear bila terally patent and compressible segmentally. Ordering Physician: Vanessa Christina Referring Physician: Vanessa Christina Performed By: Booker Baxter RVT
[2024-02-22 17:26] LABS: Ferritin 83 ng/mL (26-388); Iron 60 ug/dL (65-175)
== END | disposition home or self-care (01) ==
PROVIDERS: PCP Internal Medicine; Visit Provider Internal Medicine
DX: G25.81 Restless legs syndrome (principal); I82.403 Acute embolism and thrombosis of unspecified deep veins of lower extremity, bilateral; I82.461 Acute embolism and thrombosis of right calf muscular vein; R53.83 Other fatigue
CPT/HCPCS: 36415; 82728; 83540; 93970

== ENCOUNTER → 2024-03-06 | Outpatient (CLI) | payer MEDICARE, SELFPAY ==
--- NOTE | 2024-03-06 09:10 | ECHOCS_ITS ---
Reason For Study: Ventricular Depolarization Procedure This was a 2D Doppler, Color Flow transthoracic echocardiogram. Contrast injection was performed. Exam performed in department. Left Ventricle Normal LV size. The left ventricular ejection fraction is 60 %. Stage 1 diastolic dysfunction. No regional wall motion abnormalities noted. Right Ventricle Normal right ventricle. Normal systolic function. Atria Normal left atrium. Normal right atrium. Mitral Valve There is mild to moderate mitral annular calcification. Tricuspid Valve Normal tricuspid valve. Mild (1+) tricuspid valve insufficiency. Pulmonary artery systolic pressure is 26 mmHg. Aortic Valve Trisinus/trileaflet aortic valve. Mild focal aortic valve calcification. Pulmonic Valve Normal pulmonic valve. Great Vessels Normal aortic root. The pulmonary artery is normal size. Inferior vena cava collapse with respiration. Pericardium/Pleural No pericardial effusion. Medication 22 gauge I.V. with prn adaptor inserted into left arm. Diluted definity 2ml given slow IV push to enhance endocardial definition. MMode/2D Measurements & Calculations LVIDd: 4.6 cm IVSd: 1.1 cm LVOT diam: 2.1 cm LVIDs: 3.1 cm LVPWd: 1.1 cm RVDd: 3.5 cm FS: 31.9 % LVOT area: 3.4 cm2 Ao root diam: 3.3 cm LAV(MOD-bp): 43.1 ml LVAd ap4: 34.1 cm2 LAV(MOD-bp) Indexed: 24.3 ml/m2 LVLd ap4: 8.3 cm LAV(MOD-sp2): 46.8 ml EDV(MOD-sp4): 114.5 ml LAV(MOD-sp4): 35.4 ml EDV(sp4-el): 119.2 ml LVAs ap4: 21.1 cm2 LVLs ap4: 7.3 cm ESV(MOD-sp4): 51.9 ml ESV(sp4-el): 52.0 ml EF(MOD-sp4): 54.7 % EF(sp4-el): 56.4 % SV(MOD-sp4): 62.6 ml SV(sp4-el): 67.2 ml Ao sinus diam: 3.[address] Junction: 2.8 cm LA A4 area: 13.4 cm2 LA dimension(2D): 3.3 cm RA A4 area: 13.7 cm2 TAPSE: 1.9 cm Time Measurements MV dec time: 0.21 sec Doppler Measurements & Calculations MV E max bright: 47.9 cm/sec Lat Peak E' Bright: 9.1 cm/sec Med Peak E' Bright: 8.2 cm/sec MV A max bright: 62.1 cm/sec E/E' lat: 5.3 E/E' med: 5.8 MV E/A: 0.77 MV V2 max: 70.9 cm/sec MV P1/2t max bright: 55.6 cm/sec Ao V2 max: 102.2 cm/sec MV max P.0 mmHg MV P1/2t: 77.3 msec Ao max P.2 mmHg MV V2 mean: 37.5 cm/sec MV dec slope: 210.6 cm/sec2 Ao V2 mean: 73.5 cm/sec MV mean P.67 mmHg MVA(P1/2t): 2.8 cm2 Ao mean P.5 mmHg MV V2 VTI: 21.2 cm Ao V2 VTI: 24.4 cm MVA(VTI): 3.0 cm2 AV (velocity ratio): 0.77 BIRDIE(I,D): 2.6 cm2 BIRDIE(V,D): 2.5 cm2 AI max bright: 393.8 cm/sec LV V1 max: 73.7 cm/sec SV(LVOT): 63.9 ml AI max P.1 mmHg LV V1 max P.2 mmHg LV V1 mean P.1 mmHg AI dec slope: 198.8 cm/sec2 LV V1 mean: 49.6 cm/sec AI P1/2t: 580.2 msec LV V1 VTI: 18.8 cm PA V2 max: 99.0 cm/sec TR max bright: 239.6 cm/sec TR max P.0 mmHg ECHO/Echo Complete W/ Contrast Interpretation Summary The left ventricular ejection fraction is 60 %. Stage 1 diastolic dysfunction. Pulmonary artery systolic pressure is 26 mmHg. Contrast injection was performed. Ordering Physician: Vanessa Christina Referring Physician: Vanessa Christina Performed By: Prem Larson RCS
== END | disposition home or self-care (01) ==
PROVIDERS: PCP Internal Medicine; Referring Provider Internal Medicine; Visit Provider Internal Medicine
DX: I49.3 Ventricular premature depolarization (principal)
CPT/HCPCS: 93225; 93226; 93306; Q9957; A4216; C8929

== ENCOUNTER → 2024-04-09 | Outpatient (CLI) | payer MEDICARE, SELFPAY ==
[2024-04-09 13:21] LABS: Absolute Lymphocyte Count 0.77 X10^3/uL (0.83-4.51); Absolute Neutrophil Count 4.2 X10^3/uL (2.0-7.7); Basophil# 0.04 X10^3/uL; Basophil% 0.7 % (0-1); Eosinophil# 0.17 X10^3/uL; Hematocrit 36.8 % (40-54); Hemoglobin 11.9 g/dL (13.0-16.5); Lymphocyte # 0.77 X10^3/ul (0.83-4.51); Lymphocyte % 13.6 % (19-41); Mean Corp Hgb Conc 32.3 g/dL (32-36); Mean Corpuscular Hgb 29.1 pg (27.0-32.0); Mean Platelet Vol. 9.9 fl (6.2-12.0); Monocyte# 0.45 X10^3/uL; NRBC Flagged by Analyzer 0 % (0-5); Neutrophil % 74.3 % (47-70); Platelet Count 244 K/mm3 (150-450); RBC Distribution Width CV 14.5 % (11.6-14.6); Red Blood Count 4.09 M/mm3 (4.6-6.2); White Blood Count 5.7 K/mm3 (4.4-11.0)
[2024-04-09 13:53] LABS: ALB/GLOB Ratio 0.8 RATIO (0.9-2.4); AST(SGOT) 21 U/L (15-37); Alanine Aminotransfer ALT/SGPT 22 U/L (16-61); Alkaline Phosphatase 84 U/L (45-117); Anion Gap 5 (5-15); BUN 11 mg/dL (7-18); BUN/Creat Ratio 14.7 RATIO (10-20); Calcium,Total 9.1 mg/dL (8.5-10.1); Chloride 103 mmol/L (98-107); Creatinine, Serum 0.75 mg/dL (0.70-1.30); EST Glomerular Filtration Rate 107 mL/min (>60); Est Glom Filt Rate - Afr Amer 129 mL/min (>60); Globulin 3.9 g/dL (2.2-4.2); Glucose 124 mg/dL (74-106); Protein, Total 6.9 g/dL (6.4-8.2); Sodium Level 136 mmol/L (136-145)
== END | disposition home or self-care (01) ==
LOC: LAB 12:34
PROVIDERS: PCP Internal Medicine; Referring Provider Internal Medicine Rheumatology; Visit Provider Internal Medicine Rheumatology
DX: M05.70 Rheumatoid arthritis with rheumatoid factor of unspecified site without organ or systems involvement (principal); Z79.899 Other long term (current) drug therapy
CPT/HCPCS: 36415; 80053; 85025

== ENCOUNTER → 2024-04-11 | Outpatient (CLI) | payer MEDICARE, SELFPAY ==
--- NOTE | 2024-04-11 15:16 | VDLE_ITS ---
Reason For Study: LLE Pain RIGHT LEFT CFV is compressible, spontaneous, phasic, GSV is normal. competent and demonstrates normal CFV is compressible, spontaneous, phasic, augmentation. competent, and demonstrates normal Procedure augmentation. This is a venous duplex using B-mode, color FV is compressible, spontaneous, phasic, flow and spectral Doppler. competent and demonstrates normal Exam performed in department. augmentation. The exam was diagnostic. POP V is compressible, spontaneous, phasic, A preliminary report was called and/or faxed competent and demonstrates normal to Dr. Christina office. augmentation. T/P Trunk is compressible. PTV is compressible. LT PerV is compressible. Gastrocnemius Vein is compressible Soleus Vein is compressible. VL/Venous Duplex US, Unilateral Interpretation Summary Deep veins of the left lower extremity are patent and compressible segmentally. There is no evidence of left lower extremity deep vein thrombosis. Valvular competence appears intac t within the proximal deep venous system on the left . The left great saphenous vein appears patent a nd compressible segmentally. The right common femoral vein is patent and compressible . Ordering Physician: Vanessa Christina Referring Physician: Vanessa Christina Performed By: Booker Baxter RVT
== END | disposition home or self-care (01) ==
LOC: CVS 15:04
PROVIDERS: PCP Internal Medicine; Referring Provider Internal Medicine; Visit Provider Internal Medicine
DX: M79.605 Pain in left leg (principal)
CPT/HCPCS: 93971

== ENCOUNTER → 2024-06-05 | Outpatient (CLI) | payer MEDICARE, SELFPAY ==
--- NOTE | 2024-06-05 14:02 | CDU_ITS ---
Reason For Study: Bilateral Carotid Stenosis Rt. Velocities/BP Lt. Velocities/BP Prox CCA 71.9/13.0 cm/sec. Prox CCA 85.8/23.2 cm/sec. Mid CCA 63.3/17.1 cm/sec. Mid CCA 74.7/20.7 cm/sec. Dist CCA 62.2/16.0 cm/sec. Dist CCA 52.7/14.6 cm/sec. Prox ICA 46.8/17.1 cm/sec. Prox ICA 52.7/17.1 cm/sec. Mid ICA 83.1/22.6 cm/sec. Mid ICA 64.6/20.6 cm/sec. Dist ICA 77.2/24.3 cm/sec. Dist ICA 123.0/27.4 cm/sec. Rt. ICA/CCA = 1.3. Lt. ICA/CCA = 1.6. Prox ECA 84.2/13.0 cm/sec. Prox ECA 52.0/5.9 cm/sec. Rt. Vert. 34.6/7.9 cm/sec. Lt. Vert. 35.7/13.0 cm/sec. Right Extracranial There is heterogeneous, smooth atherosclerotic plaque noted in the right common carotid artery. There is heterogeneous, irregular atherosclerotic plaque noted in the right internal carotid artery. The atherosclerotic plaque causes acoustic shadowing. There is intimal thickening but no significant atherosclerotic plaque noted in the right external carotid artery. Antegrade flow is noted in the right vertebral artery. Left Extracranial There is intimal thickening but no significant atherosclerotic plaque noted in the left common carotid artery. There is heterogeneous, smooth atherosclerotic plaque noted in the left internal carotid artery. There is intimal thickening but no significant atherosclerotic plaque noted in the left external carotid artery. Antegrade flow is noted in the left vertebral artery. VL/Carotid Duplex Ultrasound Interpretation Summary Mild (<50%) stenosis right extracranial internal carotid. Mild (<50%) stenosis left extracranial internal carotid. Patent and antegrade vertebrals bilaterally. Ordering Physician: Vanessa Christina Referring Physician: Vanessa Christina Performed By: Booker Baxter RVVon
== END | disposition home or self-care (01) ==
LOC: CVS 14:00
PROVIDERS: PCP Internal Medicine; Referring Provider Internal Medicine; Visit Provider Internal Medicine
DX: I65.23 Occlusion and stenosis of bilateral carotid arteries (principal)
CPT/HCPCS: 93880

== ENCOUNTER → 2024-06-16 | Outpatient (CLI) | payer MEDICARE, SELFPAY ==
--- NOTE | 2024-06-16 16:03 | CT_ITS ---
STUDY: CT ABDOMEN AND PELVIS WITH CONTRAST REASON FOR EXAM: Male, [address] OF ABDOMEN AND PELVIS WITH CONTRAST -- Abnormal weight loss RADIATION DOSAGE (If Supplied By Facility): CTDIvol = ( 15.63 ) mGy, DLP = ( 546.68 ) mGycm TECHNIQUE: Transaxial images were obtained from the dome of the diaphragm to the symphysis pubis with oral contrast. Oral and amp; IV Readi-CAT and amp; 100mL Isovue-370 was administered. Sagittal and coronal images were reconstructed. Individualized dose optimization techniques were used for this CT. COMPARISON: CT the chest 02/09/2021 FINDINGS: No change in 2 noncalcified nodule left lower lobe. The visualized portions of the heart are within normal limits. Normal liver. Normal gallbladder and extrahepatic biliary system. Normal spleen. Normal pancreas. Normal bilateral adrenal glands. Normal right kidney. Normal left kidney. Multiple bilateral renal cysts. Normal visualized stomach. Normal small intestine. Normal colon. There is non-visualization of the appendix. There is diffuse atherosclerotic calcification of the abdominal aorta, without a demonstrated aneurysm. Normal inferior vena cava. Normal retroperitoneum. Normal urinary bladder. Normal abdominal wall. Normal osseous structures. CT/Abdomen/Pelvis WITH Contrast IMPRESSION: Normal enhanced CT of the abdomen and pelvis. Electronically Signed: Zacarias Gilman MD at 12:56 EST ,
[2024-06-16 16:37] LABS: CREATININE FINGERSTICK < 1.0 mg/dL (0.70-1.30); EGFR FINGERSTICK > 60.0000 mL/min (>60)
== END | disposition home or self-care (01) ==
LOC: CT 16:02
PROVIDERS: PCP Internal Medicine; Referring Provider Internal Medicine; Visit Provider Internal Medicine
DX: R63.4 Abnormal weight loss (principal)
CPT/HCPCS: 74177; Q9967

== ENCOUNTER → 2024-07-02 | Outpatient (CLI) | payer MEDICARE, SELFPAY ==
[2024-07-02 12:49] LABS: Absolute Neutrophil Count 2.4 X10^3/uL (2.0-7.7); Basophil# 0.05 X10^3/uL; Basophil% 1.2 % (0-1); Eosinophil# 0.23 X10^3/uL; Eosinophils% 5.4 % (0-5); Hematocrit 38.3 % (40-54); Hemoglobin 12.2 g/dL (13.0-16.5); Lymphocyte % 28.4 % (19-41); Mean Corp Hgb Conc 31.9 g/dL (32-36); Mean Corpuscular Hgb 28.1 pg (27.0-32.0); Mean Corpuscular Volume 88.2 fL (80-94); Monocyte% 7.1 % (0-10); NRBC Flagged by Analyzer 0 % (0-5); Neutrophil # 2.44 X10^3/uL (2.7-7.7); Neutrophil % 57.7 % (47-70); Platelet Count 183 K/mm3 (150-450); RBC Distribution Width CV 14.8 % (11.6-14.6); RBC Distribution Width SD 47.2 fl (35.1-43.9); Red Blood Count 4.34 M/mm3 (4.6-6.2); White Blood Count 4.2 K/mm3 (4.4-11.0)
[2024-07-02 13:28] LABS: ALB/GLOB Ratio 0.8 RATIO (0.9-2.4); AST(SGOT) 16 U/L (15-37); Alanine Aminotransfer ALT/SGPT 25 U/L (16-61); Alkaline Phosphatase 96 U/L (45-117); Anion Gap 0 (5-15); BUN 14 mg/dL (7-18); BUN/Creat Ratio 22.5 RATIO (10-20); Calcium,Total 9.2 mg/dL (8.5-10.1); Chloride 110 mmol/L (98-107); Creatinine, Serum 0.62 mg/dL (0.70-1.30); EST Glomerular Filtration Rate 132 mL/min (>60); Est Glom Filt Rate - Afr Amer 160 mL/min (>60); Globulin 3.7 g/dL (2.2-4.2); Glucose 104 mg/dL (74-106); Potassium 3.9 mmol/L (3.5-5.1); Protein, Total 6.7 g/dL (6.4-8.2); Sodium Level 142 mmol/L (136-145)
== END | disposition home or self-care (01) ==
LOC: LAB 12:22
PROVIDERS: PCP Internal Medicine; Referring Provider Internal Medicine Rheumatology; Visit Provider Internal Medicine Rheumatology
DX: M05.70 Rheumatoid arthritis with rheumatoid factor of unspecified site without organ or systems involvement (principal); Z79.899 Other long term (current) drug therapy
CPT/HCPCS: 36415; 80053; 85025

== ENCOUNTER → 2024-07-22 | Outpatient (CLI) | payer MEDICARE, SELFPAY ==
[2024-07-22 14:44] LABS: Absolute Lymphocyte Count 1.38 X10^3/uL (0.83-4.51); Basophil# 0.05 X10^3/uL; Basophil% 0.9 % (0-1); Eosinophil# 0.24 X10^3/uL; Eosinophils% 4.4 % (0-5); Hematocrit 39.6 % (40-54); Hemoglobin 12.6 g/dL (13.0-16.5); Lymphocyte # 1.38 X10^3/ul (0.83-4.51); Lymphocyte % 25.4 % (19-41); Mean Corp Hgb Conc 31.8 g/dL (32-36); Mean Corpuscular Hgb 28.2 pg (27.0-32.0); Mean Corpuscular Volume 88.6 fL (80-94); Mean Platelet Vol. 10.1 fl (6.2-12.0); Monocyte# 0.77 X10^3/uL; Monocyte% 14.2 % (0-10); NRBC Flagged by Analyzer 0 % (0-5); Neutrophil # 2.98 X10^3/uL (2.7-7.7); Neutrophil % 54.9 % (47-70); Platelet Count 183 K/mm3 (150-450); RBC Distribution Width CV 15.9 % (11.6-14.6); RBC Distribution Width SD 51.3 fl (35.1-43.9); Red Blood Count 4.47 M/mm3 (4.6-6.2); White Blood Count 5.4 K/mm3 (4.4-11.0)
[2024-07-22 15:09] LABS: Hemoglobin A1c 5.2 % (3.8-5.6)
[2024-07-22 15:11] LABS: ALB/GLOB Ratio 0.8 RATIO (0.9-2.4); AST(SGOT) 13 U/L (15-37); Alanine Aminotransfer ALT/SGPT 22 U/L (16-61); Albumin, Serum 3.1 g/dL (3.2-5.0); Alkaline Phosphatase 104 U/L (45-117); Anion Gap 4 (5-15); BUN 10 mg/dL (7-18); BUN/Creat Ratio 16.4 RATIO (10-20); Calcium,Total 9.2 mg/dL (8.5-10.1); Chloride 108 mmol/L (98-107); Cholesterol 165 mg/dL (200); Creatinine, Serum 0.61 mg/dL (0.70-1.30); EST Glomerular Filtration Rate 135 mL/min (>60); Est Glom Filt Rate - Afr Amer 164 mL/min (>60); Globulin 3.9 g/dL (2.2-4.2); Glucose 101 mg/dL (74-106); High Density Lipoprotein 60 mg/dL; Sodium Level 140 mmol/L (136-145); Triglycerides 57 mg/dL; Very Low Density Lipoprotein 11 mg/dL (5-40)
[2024-07-22 15:14] LABS: Vitamin D,25 Hydroxy 28.4 ng/mL
[2024-07-22 15:26] LABS: Microalbumin,Random Urine 12.8 mg/L (NO RANGE EST.); Microalbumin:Creatinine Ratio 9.9 mg/g CRE (<30 mg/g CRE)
== END | disposition home or self-care (01) ==
LOC: LAB 13:47
PROVIDERS: PCP Internal Medicine; Referring Provider Internal Medicine; Visit Provider Internal Medicine
DX: E11.9 Type 2 diabetes mellitus without complications (principal); E78.49 Other hyperlipidemia; E55.9 Vitamin D deficiency, unspecified; D69.6 Thrombocytopenia, unspecified
CPT/HCPCS: 36415; 80053; 80061; 82043; 82306; 82570; 83036; 85025

== ENCOUNTER → 2024-09-23 | Outpatient (CLI) | payer MEDICARE, SELFPAY ==
--- NOTE | 2024-09-23 15:04 | CT_ITS ---
PROCEDURE: CTA CHEST W/WO CONTRAST 09/23/2024 REASON FOR EXAM: LEFT SIDE CHEST PAIN History of rheumatoid arthritis. TECHNIQUE: CTA axial imaging of the chest with intravenous contrast. Coronal and Sagittal reconstruction series were provided. 3D, 3D post processing, 3D reconstructions, Maximum intensity projection (MIPs) Volume rendering and Shaded surface rendering was provided. PATIENT PREPARATION: Per protocol CONTRAST: Isovue 370 VOLUME: 100mL One or more dose reduction techniques were used (e.g., Automated exposure control, adjustment of the mA and/or kV according to patient size, use of iterative reconstruction technique). RADIATION DOSE SUMMARY: CTDlvol: 7 mGy DLP: 242.8 mGycm . COMPARISON: Comparison is made with prior study dated November 28, 2022. FINDINGS: Hardware: None Lymph nodes: Small mediastinal lymph nodes. Heart: Coronary artery calcifications are noted. Thoracic Aorta: No thoracic aortic aneurysm or dissection. Pulmonary Vessels: No evidence of pulmonary embolism. Most Proximal Level of Embolus (if embolus present): Lungs and Airways: Mild emphysematous changes are present. Focal infiltrate in the peripheral lateral aspect of the left upper lobe with a tiny air density within it. Follow-up recommended. There is also evidence of scarring in the right lung apex. Pleura: Unremarkable Upper Abdomen: There is a 2.5 cm by 3 cm cyst in the upper pole of the left kidney. There is also evidence of a 1.1 cm cyst in the upper lateral aspect of the right kidney. Multiple small layering gallstones. Bones: Degenerative changes of the thoracic spine. CT/CTA Chest W/WO Contrast IMPRESSION: No evidence of pulmonary embolism. Emphysematous changes with scarring as described. Peripheral infiltrate in the anterior left upper lobe with the small air bubble within it. This may represent a pneumonic process. Radiographic follow-up recommended. Reading Location: [facility]
[2024-09-23 15:19] LABS: Absolute Lymphocyte Count 1.32 X10^3/uL (0.83-4.51); Basophil# 0.05 X10^3/uL; Basophil% 1.3 % (0-1); Eosinophil# 0.12 X10^3/uL; Eosinophils% 3.1 % (0-5); Hemoglobin 12.3 g/dL (13.0-16.5); Lymphocyte # 1.32 X10^3/ul (0.83-4.51); Lymphocyte % 33.7 % (19-41); Mean Corp Hgb Conc 33.2 g/dL (32-36); Mean Corpuscular Hgb 28.7 pg (27.0-32.0); Mean Corpuscular Volume 86.4 fL (80-94); Mean Platelet Vol. 9.6 fl (6.2-12.0); Monocyte# 0.41 X10^3/uL; Monocyte% 10.5 % (0-10); NRBC Flagged by Analyzer 0 % (0-5); Neutrophil # 2.01 X10^3/uL (2.7-7.7); Neutrophil % 51.1 % (47-70); Platelet Count 147 K/mm3 (150-450); RBC Distribution Width CV 15.5 % (11.6-14.6); RBC Distribution Width SD 47.9 fl (35.1-43.9); Red Blood Count 4.28 M/mm3 (4.6-6.2); White Blood Count 3.9 K/mm3 (4.4-11.0)
[2024-09-23 15:51] LABS: ALB/GLOB Ratio 1.4 RATIO (0.9-2.4); AST(SGOT) 27 U/L (<=37); Alanine Aminotransfer ALT/SGPT 27 U/L (<=46); Albumin, Serum 3.8 g/dL (3.4-4.8); Alkaline Phosphatase 104 U/L (40-129); Anion Gap 12 (5-15); BUN 10 mg/dL (4-19); BUN/Creat Ratio 15.8 RATIO (10-20); Calcium,Total 8.5 mg/dL (7.6-11.0); Carbon Dioxide 24.2 mmol/L (21.0-32.0); Chloride 105 mmol/L (98-108); Creatinine, Serum 0.65 mg/dL (0.70-1.20); EST Glomerular Filtration Rate 95 (>60); Globulin 2.6 g/dL (2.2-4.2); Glucose 133 mg/dL (70-99); Potassium 4.1 mmol/L (3.3-5.1); Protein, Total 6.4 g/dL (5.9-8.4); Sodium Level 141 mmol/L (133-145); Total Bilirubin 0.53 mg/dL (0.00-1.30)
== END | disposition home or self-care (01) ==
PROVIDERS: PCP Internal Medicine; Referring Provider Internal Medicine; Visit Provider Internal Medicine
DX: R07.9 Chest pain, unspecified (principal); M05.70 Rheumatoid arthritis with rheumatoid factor of unspecified site without organ or systems involvement; Z79.899 Other long term (current) drug therapy
CPT/HCPCS: 71275; 80053; 85025; Q9967; A4216

== ENCOUNTER → 2024-10-29 | Outpatient (CLI) | payer MEDICARE, SELFPAY ==
[2024-10-29 14:40] LABS: Absolute Lymphocyte Count 1.88 X10^3/uL (0.83-4.51); Absolute Neutrophil Count 1.6 X10^3/uL (2.0-7.7); Basophil# 0.06 X10^3/uL; Basophil% 1.4 % (0-1); Eosinophils% 13.6 % (0-5); Hematocrit 40.6 % (40-54); Hemoglobin 13.4 g/dL (13.0-16.5); Lymphocyte # 1.88 X10^3/ul (0.83-4.51); Lymphocyte % 42.6 % (19-41); Mean Corpuscular Hgb 28.8 pg (27.0-32.0); Mean Corpuscular Volume 87.1 fL (80-94); Mean Platelet Vol. 10.2 fl (6.2-12.0); Monocyte# 0.28 X10^3/uL; Monocyte% 6.3 % (0-10); NRBC Flagged by Analyzer 0 % (0-5); Neutrophil # 1.58 X10^3/uL (2.7-7.7); Neutrophil % 35.9 % (47-70); Platelet Count 171 K/mm3 (150-450); RBC Distribution Width SD 46.9 fl (35.1-43.9); Red Blood Count 4.66 M/mm3 (4.6-6.2); White Blood Count 4.4 K/mm3 (4.4-11.0)
[2024-10-29 14:56] LABS: Hemoglobin A1c 5.4 % (<=5.6)
[2024-10-29 14:57] LABS: Microalbumin,Random Urine < 12.0 mg/L (NO RANGE EST.); Microalbumin:Creatinine Ratio UNABLE TO CALCULATE mg/g CRE
[2024-10-29 15:31] LABS: ALB/GLOB Ratio 1.2 RATIO (0.9-2.4); AST(SGOT) 40 U/L (<=37); Alanine Aminotransfer ALT/SGPT 34 U/L (<=46); Albumin, Serum 3.8 g/dL (3.4-4.8); Alkaline Phosphatase 104 U/L (40-129); Anion Gap 9 (5-15); BUN 18 mg/dL (4-19); Calcium,Total 8.9 mg/dL (7.6-11.0); Carbon Dioxide 26.2 mmol/L (21.0-32.0); Chloride 103 mmol/L (98-108); Cholesterol 172 mg/dL (<=200); Creatinine, Serum 0.72 mg/dL (0.70-1.20); EST Glomerular Filtration Rate 92 (>60); Globulin 3.3 g/dL (2.2-4.2); Glucose 97 mg/dL (70-99); High Density Lipoprotein 50 mg/dL; Low Density Lipoprotein Calc. 111 mg/dL; Potassium 4.7 mmol/L (3.3-5.1); Protein, Total 7.1 g/dL (5.9-8.4); Sodium Level 138 mmol/L (133-145); Triglycerides 55 mg/dL; Very Low Density Lipoprotein 11 mg/dL (5-40); cholesterol:hdl ratio screen 3.47
[2024-10-29 15:36] LABS: Vitamin D,25 Hydroxy 29.7 ng/mL (30-100)
[2024-10-31 17:08] LABS: Anti-Cardiolipin Ab, IgG, Qn < 9 GPL U/mL (0-14); Anti-Cardiolipin Ab, IgM, Qn 88 MPL U/mL (0-12)
== END | disposition home or self-care (01) ==
LOC: LAB 13:13
PROVIDERS: PCP Internal Medicine; Referring Provider Internal Medicine; Visit Provider Internal Medicine
DX: E78.49 Other hyperlipidemia (principal); E11.9 Type 2 diabetes mellitus without complications; D69.6 Thrombocytopenia, unspecified; E55.9 Vitamin D deficiency, unspecified; D68.61 Antiphospholipid syndrome
CPT/HCPCS: 36415; 80053; 80061; 82043; 82306; 82570; 83036; 85025; 86147

== ENCOUNTER → 2024-11-03 | Outpatient (CLI) | payer MEDICARE, SELFPAY ==
--- NOTE | 2024-11-03 10:03 | CT_ITS ---
PROCEDURE: CHEST WITH CONTRAST 11/03/2024 REASON FOR EXAM: CT CHEST W/CONTRAST, DUE 6-8 WKS - F/U FROM CTA ON 09/23/24 THAT SH. History of pneumonia. TECHNIQUE: Prone and supine chest CT with intravenous contrast, high resolution CT (HRCT) protocol. Coronal and Sagittal reconstruction series were provided. CONTRAST: Isovue-300 VOLUME: 100 mL One or more dose reduction techniques were used (e.g., Automated exposure control, adjustment of the mA and/or kV according to patient size, use of iterative reconstruction technique). RADIATION DOSE SUMMARY: CTDlvol: 10 mGy DLP: 281.88 mGycm COMPARISON: Comparison is made with prior study dated September 23, 2024. FINDINGS: Hardware: None Lymph nodes: Unremarkable Heart and Vasculature: Coronary artery calcifications are noted. Lungs and Airways: Advanced emphysematous changes are present. No septal thickening nodules or abnormal pulmonary opacities. Stable scarring at the right lung apex with evidence of bronchiectasis. Stable peripheral soft tissue density in the left upper lobe with the focal area of cystic change. This most likely represents a focal area of scarring. Correlation with a PET scan recommended for further evaluation. Upper Abdomen: Unremarkable Bones: Bone windows are unremarkable. CT/Chest WITH Contrast IMPRESSION: Coronary artery calcification (CAC) is is present Stable examination. Correlation with a PET scan recommended. Reading Location: [facility]
== END | disposition home or self-care (01) ==
LOC: CT 10:00
PROVIDERS: PCP Internal Medicine; Referring Provider Internal Medicine; Visit Provider Internal Medicine
DX: R93.89 Abnormal findings on diagnostic imaging of other specified body structures (principal)
CPT/HCPCS: 71260; Q9967

== ENCOUNTER → 2024-12-09 | Outpatient (CLI) | payer MEDICARE, SELFPAY ==
--- NOTE | 2024-12-09 10:00 | PET_ITS ---
PROCEDURE: PET/CT TUMOR BASE -THIGH INIT 12/09/2024 REASON FOR EXAM: 79 y/o M with ABNORMAL FINDINGS IN LUNG FIELD TECHNIQUE: After intravenous injection of 14.7 millicuries of FDG and a standard uptake period, a noncontrast CT scan, followed by a PET scan were acquired along the length of the body from the base of the skull to the mid thighs. The noncontrast helical CT imaging was performed without breath hold, for attenuation correction of PET images and anatomic correlation, but not for primary interpretation, as it is not of the standard diagnostic quality. Images were reviewed in the axial, coronal and sagittal planes. RADIATION DOSE SUMMARY: Effective Dose: Approximately 7 mSv for a standard whole-body PET scan Organ Doses: Varies by organ, with higher doses typically to the bladder, liver, and brain COMPARISON: COMPARISON FROM CT, PET OR OTHER PERTINENT EXAMS: CT chest with IV contrast, 11/03/2024. FINDINGS: Physiologic uptake: There may be expected metabolic uptake within the brain, tongue and floor of the mouth and larynx/vocal cords, heart, latonya (many normal individuals have hilar uptake in less than 3 nodes with mildly avid hilar nodes less than 2.7 SUV), liver and spleen, system, and GI tract and symmetric muscle uptake. FDG AVID AND NON-AVID LESIONS. Reported avid SUV values (g/mL*) are maximum SUV. Head and neck: There is a normal distribution of FDG activity in the visualized brain parenchyma. There is normal uptake within the soft tissues of the neck and glandular structures. There is no hypermetabolic lymphadenopathy. There is calcific vascular disease of the intracranial portion of both internal carotid arteries and the left vertebral artery. There is calcific vascular disease of both carotid bifurcations. There is nasal septal deviation to the left. Chest: Severe emphysema. There is intermittent pleural-based activity, in the right todd thorax extending from the 1st intercostal base to the 3rd intercostal space, max SUV 4.3 (image [id number]. There is a linear area of increased FDG activity in the anterior segment of the upper lobe of the left lung, max SUV 5.0 (image 84). There are 2 peripheral soft tissue density nodules in the lower lobe of the left lung that do not demonstrate significant FDG activity. There is inferolateral pleural thickening on the left, max SUV 2.5 there are no pleural effusions. The heart size is normal. There is no pericardial effusion. There is calcific vascular disease of the thoracic aorta and coronary arteries. There is no hypermetabolic mediastinal, hilar or axillary lymphadenopathy. Abdomen and pelvis: There are multiple small gallstones. There are benign cortical cysts in both kidneys. There is calcific vascular disease of the abdominal aorta. There is ectasia of the infrarenal abdominal aorta without aneurysm. Status post right inguinal hernia repair. There is moderate sigmoid diverticulosis without diverticulitis. There is a normal distribution of FDG activity within the gastrointestinal and genitourinary tract. There is no hypermetabolic lymphadenopathy identified. Musculoskeletal: There are no suspicious hypermetabolic osteolytic or osteosclerotic lesions. There is a focus of increased activity at the left costochondral junction, max SUV 2.4. Uptake time: 60 minutes. Hepatic blood pool: Max SUV, 3.0 Blood glucose: Not provided BMI: Not provided PET/PET/CT Tumor Base -Thigh Init IMPRESSION: 1. There are 2 areas in the upper lobe of the left lung suspicious for neoplas tic disease. 2. Other findings as noted. Reading Location: [id number]
== END | disposition home or self-care (01) ==
PROVIDERS: PCP Internal Medicine; Referring Provider Internal Medicine; Visit Provider Internal Medicine
DX: R91.8 Other nonspecific abnormal finding of lung field (principal)
CPT/HCPCS: 78815; A9552

== ENCOUNTER → 2024-12-17 | Outpatient (CLI) | payer MEDICARE, SELFPAY ==
[2024-12-17 15:40] LABS: Absolute Lymphocyte Count 1.29 X10^3/uL (0.83-4.51); Absolute Neutrophil Count 2.7 X10^3/uL (2.0-7.7); Basophil# 0.05 X10^3/uL; Basophil% 1.1 % (0-1); Eosinophil# 0.08 X10^3/uL; Eosinophils% 1.8 % (0-5); Hematocrit 38.7 % (40-54); Hemoglobin 12.8 g/dL (13.0-16.5); Lymphocyte # 1.29 X10^3/ul (0.83-4.51); Lymphocyte % 29.7 % (19-41); Mean Corp Hgb Conc 33.1 g/dL (32-36); Mean Corpuscular Hgb 28.9 pg (27.0-32.0); Mean Corpuscular Volume 87.4 fL (80-94); Mean Platelet Vol. 10.3 fl (6.2-12.0); Monocyte# 0.27 X10^3/uL; Monocyte% 6.2 % (0-10); NRBC Flagged by Analyzer 0 % (0-5); Neutrophil # 2.65 X10^3/uL (2.7-7.7); Platelet Count 157 K/mm3 (150-450); RBC Distribution Width CV 14.2 % (11.6-14.6); RBC Distribution Width SD 45.5 fl (35.1-43.9); Red Blood Count 4.43 M/mm3 (4.6-6.2); White Blood Count 4.4 K/mm3 (4.4-11.0)
[2024-12-17 16:34] LABS: ALB/GLOB Ratio 1.2 RATIO (0.9-2.4); AST(SGOT) 24 U/L (<=37); Alanine Aminotransfer ALT/SGPT 16 U/L (<=46); Albumin, Serum 3.6 g/dL (3.4-4.8); Alkaline Phosphatase 90 U/L (40-129); Anion Gap 9 (5-15); BUN 16 mg/dL (4-19); BUN/Creat Ratio 20.7 RATIO (10-20); Carbon Dioxide 25.1 mmol/L (21.0-32.0); Chloride 104 mmol/L (98-108); Creatinine, Serum 0.76 mg/dL (0.70-1.20); EST Glomerular Filtration Rate 91 (>60); Glucose 156 mg/dL (70-99); Potassium 4.1 mmol/L (3.3-5.1); Protein, Total 6.6 g/dL (5.9-8.4); Sodium Level 139 mmol/L (133-145); Total Bilirubin 0.91 mg/dL (0.00-1.30)
== END | disposition home or self-care (01) ==
LOC: LAB 14:49
PROVIDERS: PCP Internal Medicine; Referring Provider Internal Medicine Rheumatology; Visit Provider Internal Medicine Rheumatology
DX: M05.70 Rheumatoid arthritis with rheumatoid factor of unspecified site without organ or systems involvement (principal); Z79.899 Other long term (current) drug therapy
CPT/HCPCS: 36415; 80053; 85025

== ENCOUNTER 2025-01-26 07:47 | Outpatient (CLI) | payer MEDICARE, SELFPAY ==
[2025-01-26] VITALS (20 sets, daily range): BP systolic 88–130; BP diastolic 45–85; PULSE 55–68; RESP 12–18; TEMP 36.1; O2SAT 94–100; BMI 21.3
--- NOTE | 2025-01-26 | ASPIGT_PTH ---
PATIENT: TRELL DUBOSE LOC: [place] U#:[id number] AGE/SX: 79/M ROOM: RE01/26/[address]: Dr. Aren Yoder MD : [id number] BED: DIS: 01/26/2025 SPEC #: [id number] RECD: 01/26/25 13:12 STATUS: JOVITA REQ #: [id number] JOSE JUAN: 01/26/25 00:[address]: Aren Yoder V DEPT: SURGICAL PATHOLOGY RECD BY: Mannie Vasquez ENTERED: 01/26/25 13:12 SP TYPE: ASP RAD OTHR DR: Dr. Vanessa Christina DO Tissues: Lung, NOS Procedures: FNA Specimen Adequacy Immunohistochemical Stains Special Stain Group II Special Stain Group I Surgery Specimen Level IV AFB Stain (control) GMS Stain (control) Imprint (control) HEADER OPERATION: CT guided lung biopsy PRE-OP DIAGNOSIS: Left upper lung mass TISSUE SUBMITTED: A- Left lung mass, 20 gauge x 6 cores MICROSCOPIC DIAGNOSIS A. Lung, left upper, mass, CT-guided core biopsy: - Fibrosis, chronic inflammation, and focal necrosis. - IHC for pankeratin highlights obscured alveolar spaces, with no evidence of carcinoma. - AFB and PASD stains are negative for micro-organisms. - GMS is negative for pneumocystis organisms. COMMENT The specimen is evaluated at the time of biopsy by Dr. Santiago. Immediate Evaluation = 6. Adequate. MICROSCOPIC DESCRIPTION Slides are reviewed. ?All matched controls reacted appropriately. These tests were developed and their performance characteristics determined by [facility]. They may not have been cleared or approved by the U.S. Food and Drug Administration. The FDA has determined that such clearance or approval is not necessary.? The above immunohistochemical/dualISH?markers are reviewed by the Pathologist. GROSS DESCRIPTION A. Received in formalin labeled with the patient's name and date of . Designated as RONI biopsy is a 0.8 x 0.4 x <0.1 cm aggregate of fragmented valente tissue cores. Entirely submitted in 2 cassettes. DC 01/26/2025 CPT:21055,[id number]
--- NOTE | 2025-01-26 07:27 | RAD_ITS ---
EXAM: AP portable upright inspiratory and expiratory chest CLINICAL HISTORY: 1 hour following left upper lobe CT-guided core biopsy. COMPARISON: Chest x-ray of 09/28/[address] images of 01/26/2025. TECHNIQUE: AP portable upright inspiratory and expiratory chest RAD/Chest Insp/Exp 2 View IMPRESSION: Left upper lobe densities are again seen. No significant pneumothorax is noted. Chronic lung changes and emphysema are again seen. The cardiomediastinal silhouette is within the normal range. No significant pleural effusion is evident. Reading Location: [place] [address]
--- NOTE | 2025-01-26 08:10 | CT_ITS ---
EXAM: CT-guided core biopsy a hypermetabolic left upper lobe area (the more superior of the 2 areas noted on the comparison PET-CT). CLINICAL HISTORY: Hypermetabolic left upper lobe areas. COMPARISON: PET-CT of 12/09/2024. TECHNIQUE: Conscious sedation was employed for the procedure, with start time of 0922 hours and stop time of 1005 hours. Intravenous administration of a total of 2 mg Versed and 50 mcg fent[address] was employed. CT-guided core biopsy of a hypermetabolic left upper lobe area was performed following informed consent, and using standard sterile technique. 2% lidocaine local anesthesia was followed by placement of a 20 gauge AudioTrip core biopsy set. A total of 6 samples were then obtained under CT guidance. No complication was encountered, and the patient left the department in good condition without significant complaint. Dose: DLP 1156.20 mGy-cm. CT/Biopsy/Inj or Needle Placement IMPRESSION: Successful CT-guided core biopsy of the more superior of the 2 areas noted of ora [email or web address] on the PET-CT 12/09/2024. Pathology and laboratory results pending. Reading Location: [place] [id number]
[2025-01-26 08:21] LABS: Hematocrit 42.4 % (40-54); Hemoglobin 13.8 g/dL (13.0-16.5); Immature Granulocytes Count 0.010 X10^3/uL (0.0-0.0); Mean Corp Hgb Conc 32.5 g/dL (32-36); Mean Corpuscular Volume 88.1 fL (80-94); Mean Platelet Vol. 9.3 fl (6.2-12.0); NRBC Flagged by Analyzer 0 % (0-5); Platelet Count 195 K/mm3 (150-450); RBC Distribution Width CV 14.4 % (11.6-14.6); RBC Distribution Width SD 46.1 fl (35.1-43.9); Red Blood Count 4.81 M/mm3 (4.6-6.2); White Blood Count 4.7 K/mm3 (4.4-11.0)
[2025-01-26 08:31] LABS: Prothrombin Time (Protime)PT. 15.0 SECONDS (11.7-14.9)
[2025-01-26 08:32] LABS: Partial Thromboplast Time 30.9 Seconds (24.1-36.2)
[2025-01-26] MEDS: Midazolam 2 MG/2 ML Syringe IV ×2 (09:22→09:45)
[2025-01-26] MEDS: 0.9% Normal Saline (250mL Bag) 250 ML 15 ML IV (09:22)
[2025-01-26] MEDS: fentaNYL 100 MCG/2 ML Ampul IV (09:23)
[2025-01-26] MEDS: Lidocaine 2% (20 ml mdv) 20 ML Vial INFILT (09:48)
--- NOTE | 2025-01-26 12:00 | RAD_ITS ---
EXAM: AP portable upright inspiratory and expiratory chest CLINICAL HISTORY: Greater than 2 hours following left upper lobe CT-guided core biopsy. COMPARISON: Prior chest x-ray of the same day. TECHNIQUE: AP portable upright inspiratory and expiratory chest RAD/Chest Insp/Exp 2 View IMPRESSION: No pneumothorax is seen. The lungs appear unchanged. The cardiomediastinal silhouette is stable, without evidence of cardiomegaly. Stable examination, without evidence of pneumothorax. Reading Location: [place] [id number]
== END 2025-01-26 23:59 | disposition home or self-care (01) ==
PROVIDERS: Radiology Nuclear Radiology; PCP Internal Medicine; Referring Provider Internal Medicine Pulmonary Disease; Visit Provider Internal Medicine Pulmonary Disease
DX: J85.0 Gangrene and necrosis of lung (principal); M05.9 Rheumatoid arthritis with rheumatoid factor, unspecified; J84.10 Pulmonary fibrosis, unspecified; J44.9 Chronic obstructive pulmonary disease, unspecified; I42.9 Cardiomyopathy, unspecified; E11.40 Type 2 diabetes mellitus with diabetic neuropathy, unspecified; E78.00 Pure hypercholesterolemia, unspecified; F17.210 Nicotine dependence, cigarettes, uncomplicated; G25.81 Restless legs syndrome; Z79.899 Other long term (current) drug therapy
CPT/HCPCS: 32408; 36415; 71046; 77012; 85025; 85610; 85730; 87015; 87070; 87075; 87102; 87116; 87205; 87206; 88172; 88305; 88312; 88313; 88342; 99156; 99157; A4216

== ENCOUNTER → 2025-02-19 | Outpatient (CLI) | payer MEDICARE, SELFPAY ==
[2025-02-19 16:04] LABS: Mucous, Urine 0 SEEN /hpf (<or=2+)
[2025-02-19 16:15] LABS: Hematocrit 41.0 % (40-54); Hemoglobin 13.2 g/dL (13.0-16.5); Immature Granulocytes Count 0.010 X10^3/uL (0.0-0.0); Mean Corp Hgb Conc 32.2 g/dL (32-36); Mean Corpuscular Volume 90.1 fL (80-94); Mean Platelet Vol. 10.5 fl (6.2-12.0); NRBC Flagged by Analyzer 0 % (0-5); Platelet Count 156 K/mm3 (150-450); RBC Distribution Width CV 15.3 % (11.6-14.6); RBC Distribution Width SD 49.9 fl (35.1-43.9); Red Blood Count 4.55 M/mm3 (4.6-6.2); White Blood Count 3.9 K/mm3 (4.4-11.0)
[2025-02-19 16:27] LABS: Color, Urine Straw (Yellow); Glucose, Dipstick Normal (Normal); Ketone-Dipstick Negative (Negative); Leukocyte Esterase-Dipstick Negative /ul (Negative); Nitrite-Dipstick Negative (Negative); Occult Blood-Urine Negative /ul (Negative); Protein-Dipstick Negative (Negative); Specific Gravity, Urine 1.010 (1.002-1.030); Urine Bilirubin Dipstick Negative (Negative)
[2025-02-19 16:43] LABS: Red Blood Cells-Urine 0-5 SEEN /hpf (0-5); Squamous Epithelial Cells - UA 0-5 SEEN /hpf (0-5)
[2025-02-19 17:25] LABS: Creatinine, Urine (random) 51.60 mg/dL (39.00-259.00); Microalbumin,Random Urine < 12.0 mg/L (<20 mg/L)
[2025-02-19 17:32] LABS: AST(SGOT) 17 U/L (<=37); Alanine Aminotransfer ALT/SGPT 19 U/L (<=46); Albumin, Serum 3.7 g/dL (3.4-4.8); Alkaline Phosphatase 92 U/L (40-129); Anion Gap 8 (5-15); BUN 12 mg/dL (4-19); BUN/Creat Ratio 20.0 RATIO (10-20); Calcium,Total 8.7 mg/dL (7.6-11.0); Carbon Dioxide 27.4 mmol/L (21.0-32.0); Chloride 107 mmol/L (98-108); Globulin 2.6 g/dL (2.2-4.2); Glucose 93 mg/dL (70-99); Potassium 4.3 mmol/L (3.3-5.1)
== END | disposition home or self-care (01) ==
LOC: LABSPEC 15:43
PROVIDERS: PCP Internal Medicine; Referring Provider Internal Medicine; Visit Provider Internal Medicine
DX: E11.9 Type 2 diabetes mellitus without complications (principal)
CPT/HCPCS: 80053; 81001; 82043; 82570; 85025

== ENCOUNTER → 2025-03-11 | Outpatient (CLI) | payer MEDICARE, SELFPAY ==
[2025-03-11 11:55] LABS: Hematocrit 40.8 % (40-54); Hemoglobin 13.7 g/dL (13.0-16.5); Immature Granulocytes Count 0.010 X10^3/uL (0.0-0.0); Mean Corp Hgb Conc 33.6 g/dL (32-36); Mean Corpuscular Volume 87.9 fL (80-94); Mean Platelet Vol. 10.6 fl (6.2-12.0); NRBC Flagged by Analyzer 0 % (0-5); Platelet Count 152 K/mm3 (150-450); RBC Distribution Width CV 15.0 % (11.6-14.6); RBC Distribution Width SD 48.5 fl (35.1-43.9); Red Blood Count 4.64 M/mm3 (4.6-6.2); White Blood Count 4.0 K/mm3 (4.4-11.0)
[2025-03-11 12:45] LABS: AST(SGOT) 22 U/L (<=37); Alanine Aminotransfer ALT/SGPT 18 U/L (<=46); Albumin, Serum 3.7 g/dL (3.4-4.8); Alkaline Phosphatase 87 U/L (40-129); Anion Gap 10 (5-15); BUN 14 mg/dL (4-19); BUN/Creat Ratio 19.9 RATIO (10-20); Calcium,Total 9.1 mg/dL (7.6-11.0); Carbon Dioxide 25.0 mmol/L (21.0-32.0); Chloride 104 mmol/L (98-108); Globulin 3.0 g/dL (2.2-4.2); Glucose 104 mg/dL (70-99); Potassium 4.2 mmol/L (3.3-5.1)
== END | disposition home or self-care (01) ==
LOC: LAB 11:13
PROVIDERS: PCP Internal Medicine; Referring Provider Internal Medicine Rheumatology; Visit Provider Internal Medicine Rheumatology
DX: M05.70 Rheumatoid arthritis with rheumatoid factor of unspecified site without organ or systems involvement (principal); Z79.899 Other long term (current) drug therapy
CPT/HCPCS: 36415; 80053; 85025

== ENCOUNTER → 2025-05-29 | Outpatient (CLI) | payer MEDICARE, SELFPAY ==
[2025-05-29 10:58] LABS: Hematocrit 40.6 % (40-54); Hemoglobin 13.2 g/dL (13.0-16.5); Immature Granulocytes Count 0.010 X10^3/uL (0.0-0.0); Mean Corp Hgb Conc 32.5 g/dL (32-36); Mean Corpuscular Volume 87.5 fL (80-94); Mean Platelet Vol. 9.7 fl (6.2-12.0); NRBC Flagged by Analyzer 0 % (0-5); Platelet Count 186 K/mm3 (150-450); RBC Distribution Width CV 14.7 % (11.6-14.6); RBC Distribution Width SD 46.2 fl (35.1-43.9); Red Blood Count 4.64 M/mm3 (4.6-6.2); White Blood Count 4.7 K/mm3 (4.4-11.0)
[2025-05-29 11:24] LABS: AST(SGOT) 18 U/L (<=37); Alanine Aminotransfer ALT/SGPT 10 U/L (<=46); Albumin, Serum 3.7 g/dL (3.4-4.8); Alkaline Phosphatase 103 U/L (40-129); Anion Gap 10 (5-15); BUN 15 mg/dL (4-19); BUN/Creat Ratio 19.4 RATIO (10-20); Calcium,Total 9.4 mg/dL (7.6-11.0); Carbon Dioxide 27.2 mmol/L (21.0-32.0); Chloride 103 mmol/L (98-108); Globulin 3.6 g/dL (2.2-4.2); Glucose 98 mg/dL (70-99); Potassium 4.7 mmol/L (3.3-5.1)
== END | disposition home or self-care (01) ==
LOC: LAB 09:48
PROVIDERS: PCP Internal Medicine; Referring Provider Internal Medicine Rheumatology; Visit Provider Internal Medicine Rheumatology
DX: M05.70 Rheumatoid arthritis with rheumatoid factor of unspecified site without organ or systems involvement (principal); Z79.899 Other long term (current) drug therapy
CPT/HCPCS: 36415; 80053; 85025

== ENCOUNTER → 2025-06-04 | Outpatient (CLI) | payer MEDICARE, SELFPAY ==
--- NOTE | 2025-06-04 13:16 | CT_ITS ---
PROCEDURE: CHEST WITHOUT CONTRAST 06/04/2025 REASON FOR EXAM: SOLITARY PULM NODULE TECHNIQUE: Chest CT without contrast. Coronal and Sagittal reconstruction series were provided. One or more dose reduction techniques were used (e.g., Automated exposure control, adjustment of the mA and/or kV according to patient size, use of iterative reconstruction technique RADIATION DOSE SUMMARY: CTDlvol: 7 mGy DLP: 260 mGycm COMPARISON: October 2024 FINDINGS: Thyroid gland: Negative. 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 Furthermore there is apical pleural thickening and scarring with traction bronchiectasis in pleural thickening. This is relatively stable. Pulmonary nodules in the left lung base. Mild interstitial thickening particularly in the left lower lobe also stable. Pleura: As described above bilateral apical pleural thickening. Negative for pleural effusion or pneumothorax. Airways: Upper lobe traction bronchiectasis. Imaged bronchi and trachea otherwisenegative. Mediastinum: Negative for mediastinal mass. Lymph nodes: Negative for axillary, mediastinal or hilar adenopathy. Heart and Vasculature: 3.7 cm ascending thoracic aorta. Heart normal size. Negative for vascular calcifications of the thoracic aorta. Coronary Artery Calcifications: Mild vascular calcifications of the coronary arteries Upper Abdomen: Exophytic cysts. Gallstones. Hardware: None. Bones: Age-appropriate degenerative changes of the thoracic spine. CT/Chest without Contrast IMPRESSION: Bullous disease or traction bronchiectasis in the upper lobes. Stable apical pleural thickening. Stable left lower lobe pulmonary nodules. Negative for acute cardiopulmonary disease. Reading Location: [id number]
== END | disposition home or self-care (01) ==
LOC: CT 13:14
PROVIDERS: PCP Internal Medicine; Referring Provider Internal Medicine Pulmonary Disease; Visit Provider Internal Medicine Pulmonary Disease
DX: R91.1 Solitary pulmonary nodule (principal)
CPT/HCPCS: 71250

== ENCOUNTER → 2025-06-10 | Outpatient (CLI) | payer MEDICARE, SELFPAY ==
[2025-06-10 13:46] LABS: Cholesterol 171 mg/dL (<=200); Low Density Lipoprotein Calc. 105 mg/dL; Triglycerides 58 mg/dL; Very Low Density Lipoprotein 12 mg/dL (5-40); Vitamin D,25 Hydroxy 27.3 ng/mL (30-100); cholesterol:hdl ratio screen 3.14
[2025-06-12 05:07] LABS: PSA, Total 0.9 ng/mL (0.0-4.0)
== END | disposition home or self-care (01) ==
LOC: CIMLAB 10:57
PROVIDERS: PCP Internal Medicine; Referring Provider Internal Medicine; Visit Provider Internal Medicine
DX: E11.9 Type 2 diabetes mellitus without complications (principal); E55.9 Vitamin D deficiency, unspecified; Z12.5 Encounter for screening for malignant neoplasm of prostate
CPT/HCPCS: 36415; 80061; 82306; 84153

== ENCOUNTER → 2025-06-22 | Outpatient (CLI) | payer MEDICARE, SELFPAY ==
--- NOTE | 2025-06-22 10:58 | CDU_ITS ---
Reason For Study Reason For Study: Bilateral Carotid Stenosis Rt. Velocities/BP Lt. Velocities/BP Prox CCA 100.3/15.1 cm/sec. Prox CCA 84.7/21.1 cm/sec. Mid CCA 78.7/16.0 cm/sec. Mid CCA 97.9/23.3 cm/sec. Dist CCA 88.6/21.5 cm/sec. Dist CCA 91.3/27.7 cm/sec. Prox ICA 74.3/17.1 cm/sec. Prox ICA 80.3/27.7 cm/sec. Mid ICA 85.1/28.5 cm/sec. Mid ICA 74.1/22.0 cm/sec. Dist ICA 78.4/23.7 cm/sec. Dist ICA 111.1/27.7 cm/sec. Rt. ICA/CCA = 1.1. Lt. ICA/CCA = 1.1. Prox ECA 115.6/11.5 cm/sec. Prox ECA 95.2/12.7 cm/sec. Rt. Vert. 36.3/9.2 cm/sec. Lt. Vert. 45.7/16.0 cm/sec. Right Extracranial There is homogeneous, smooth atherosclerotic plaque noted in the right common carotid artery. There is heterogeneous, irregular atherosclerotic plaque noted in the right internal carotid artery. The atherosclerotic plaque causes acoustic shadowing. There is intimal thickening but no significant atherosclerotic plaque noted in the right external carotid artery. Antegrade flow is noted in the right vertebral artery. Left Extracranial There is homogeneous, smooth atherosclerotic plaque noted in the left common carotid artery. There is heterogeneous, irregular atherosclerotic plaque noted in the left internal carotid artery. There is intimal thickening but no significant atherosclerotic plaque noted in the left external carotid artery. Antegrade flow is noted in the left vertebral artery. Procedure Carotid Duplex 16619. This is a Carotid Duplex examination using B-mode, color flow and specral Doppler. The exam was diagnostic. Exam performed in department. VL/Carotid Duplex Ultrasound Interpretation Summary Mild (<50%) stenosis right extracranial internal carotid. Mild (<50%) stenosis left extracranial internal carotid. Patent and antegrade vertebrals bilaterally. Ordering Physician: Vanessa Christina Referring Physician: Vanessa Christina Performed By: Booker Baxter RVT
== END | disposition home or self-care (01) ==
PROVIDERS: PCP Internal Medicine; Referring Provider Internal Medicine; Visit Provider Internal Medicine
DX: I65.23 Occlusion and stenosis of bilateral carotid arteries (principal)
CPT/HCPCS: 93880